=== PATIENT | female | born 1955 | race Caucasian/White ===

== ENCOUNTER 2016-07-09 08:55 | Inpatient (IN) | payer BC ==
[2016-07-09] MEDS ORDERED: SODIUM CHLORIDE 250 ML IV ONE (10:00)
[2016-07-09 10:23] LABS: MCH 33.9 pg (25.7-33.7); MCHC 33.5 g/dl (32.0-36.0); MEAN CELL VOLUME 101.3 fl (80-96); PLATELET COUNT 212 K/MM3 (134-434); RDW 18.3 % (11.6-15.6); WHITE BLOOD COUNT 2.2 K/mm3 (4.0-10.0)
[2016-07-09] MEDS ORDERED: ACETAMINOPHEN 325 MG TABLET (FP) PO ONE (10:30)
[2016-07-09] MEDS ORDERED: DEXAMETHASONE INJECTION 20 MG, DIPHENHYDRAMINE 50 MG in SODIUM CHLORIDE 100 ML IVPB ONE (10:30)
[2016-07-09 10:54] LABS: LDH 160 U/L (84-246); URIC ACID 3.5 mg/dL (2.6-7.2)
[2016-07-09 11:23] VITALS: BMI 21.1
[2016-07-09] MEDS ORDERED: DARATUMUMAB IVPB ONE ×2 (11:30)
[2016-07-09] MEDS ORDERED: SODIUM CHLORIDE IVPB ONE ×2 (11:30)
[2016-07-09 12:26] LABS: ALBUMIN 3.3 g/dl (3.4-5.0); ANION GAP 7 (8-16); CALCIUM 8.9 mg/dL (8.5-10.1); CO2 24 mmol/L (21-32); GLUCOSE,RANDOM 83 mg/dL (74-106)
[2016-07-09 12:29] LABS: CREATININE 0.6 mg/dL (0.55-1.02); SGOT/AST 53 U/L (15-37); SGPT/ALT 23 U/L (12-78); TOT PROT 7.3 g/dl (6.4-8.2)
[2016-07-09 12:34] LABS: ALK PHOS 99 U/L (45-117); BILIRUBIN,TOTAL 0.5 mg/dL (0.2-1.0)
[2016-07-09] MEDS ORDERED: ACETAMINOPHEN 325 MG TABLET (FP) ONE (12:35)
[2016-07-09] MEDS ORDERED: methylPREDNISolone NA SUCC 125 MG/2 ML VIAL ONE (15:52)
[2016-07-09] MEDS ORDERED: methylPREDNISolone NA SUCC 125 MG/2 ML VIAL IVPB ONE ×2 (16:00→16:15)
--- NOTE | 2016-07-09 16:01 | HP ---
Admitting History and Physical - Admission Chief Complaint: Chemotherapy admission with daitumimab and carfilzamab History Source: Patient, Medical Record, Caregiver - Past Medical History Gastrointestinal: Yes: Other (bloating and distension) ...: No Heme/Onc: Yes: Current Chemotherapy Endocrine: Yes: Hypothyroidism - Past Surgical History Additional Past Surgical History: thyroidectomy - Smoking History Smoking history: Never smoked Have you smoked in the past 12 months: No Aproximately how many cigarettes per day: 0 - Alcohol/Substance Use Hx Alcohol Use: Yes (SOCIAL) Home Medications - Allergies Allergies/Adverse Reactions: Allergies Allergy/AdvReac Type Severity Reaction Status Date / Time No Known Allergies Allergy Verified 11/23/14 13:15 - Home Medications Home Medications: Ambulatory Orders Acyclovir [Zovirax -] 400 mg PO ASDIR 12/18/12 Aspirin [ASA -] 81 mg PO DAILY 12/18/12 Levothyroxine [Synthroid -] 125 mcg PO DAILY 12/18/12 Vitamin B Complex 1 each PO DAILY 12/18/12 Dexamethasone Injection [Decadron] 20 mg IJ WEEKLY 11/23/14 Allopurinol 300 mg PO DAILY 01/31/16 Vicoprofen 7.5-200 mg Tablet 1 tab PO PRN PRN 02/01/16 Zometa - 4 mg IV MO 02/01/16 Carvedilol [Coreg] 3.125 mg PO BID 07/09/16 Lisinopril [Zestril] 2.5 mg PO DAILY 07/09/16 Review of Systems - Review of Systems Constitutional: reports: No Symptoms Eyes: denies: Blurred Vision, Double Vision HENT: reports: Nasal Congestion. denies: Difficult Swallowing, Mouth Swelling Neck: denies: Swollen Glands, Tenderness Cardiovascular: denies: Chest Pain, Shortness of Breath Respiratory: denies: SOB, SOB on Exertion Gastrointestinal: reports: Bloating, Diarrhea. denies: Vomiting Blood Genitourinary: denies: Discharge, Dysuria, Flank Pain Breasts: reports: No Symptoms Reported Neurological: reports: No Symptoms, Weakness Hematology/Lymphatic: denies: Easily Bruised, Excessive Bleeding, Swollen Glands Psychiatric: reports: No Symptoms Physical Examination Vital Signs: Vital Signs Temperature 97.7 F 07/09/16 10:52 Pulse Rate 74 07/09/16 10:52 Respiratory Rate 19 07/09/16 10:52 Blood Pressure 135/82 07/09/16 10:52 O2 Sat by Pulse Oximetry (%) 98 07/09/16 10:52 Constitutional: Yes: No Distress Eyes: Yes: PERRL. No: Ptosis, Sclera Icterus HENT: Yes: Atraumatic, Normocephalic. No: Epistaxis, Tonsillar Exudate Neck: Yes: Supple, Trachea Midline. No: Lymphadenopathy, Tenderness, Thyromegaly Cardiovascular: Yes: Regular Rate and Rhythm Respiratory: Yes: CTA Bilaterally Gastrointestinal: Yes: WNL, Soft Renal/: No: CVA Tenderness - Right Breast(s): Yes: WNL Musculoskeletal: No: Back Pain, Muscle Pain Extremities: No: Calf Tenderness Edema: No Integumentary: Yes: WNL, Body Piercing Neurological: Yes: WNL ...Motor Strength: WNL Psychiatric: Yes: WNL Labs: CBC, BMP 07/09/16 09:50 07/09/16 09:50 Problem List - Problems (1) Multiple myeloma Assessment/Plan: For carfilzamab and daratumimab. S/P multiple chemotherapy regimens and s/p transplant. Code(s): C90.00 - MULTIPLE MYELOMA NOT HAVING ACHIEVED REMISSION Qualifiers: Multiple myeloma remission status: not in remission Qualified Code(s ): C90.00 - Multiple myeloma not having achieved remission (2) Neutropenia Assessment/Plan: Secondary to chemotherapy Will need neupogen post infusion of chemotherapy. Code(s): D70.9 - NEUTROPENIA, UNSPECIFIED Qualifiers: Neutropenia type: secondary to cancer chemotherapy Qualified Code(s) : D70.1 - Agranulocytosis secondary to cancer chemotherapy (3) Antineoplastic chemotherapy induced anemia Assessment/Plan: To monitor. Code(s): D64.81 - ANEMIA DUE TO ANTINEOPLASTIC CHEMOTHERAPY
[2016-07-09] MEDS ORDERED: DEXAMETHASONE 4 MG TABLET (FP) PO ONE ×2 (20:45→23:45)
--- NOTE | 2016-07-09 21:45 | PN ---
Progress Note (short form) - Note Progress Note: Developed infusion reaction with increased secretions and pressure in ears and throat. Antibody stopped and saline infused. Methylprednisolone given (60 mg). Rate slowed to 50cc. . After one hour- no reaction, and rate increased to 100cc/hr. No reaction. Clear lungs at 50 cc and at 100 cc / hr. To maintain current rate. Problem List - Problems (1) Multiple myeloma Code(s): C90.00 - MULTIPLE MYELOMA NOT HAVING ACHIEVED REMISSION Qualifiers: Multiple myeloma remission status: not in remission Qualified Code(s ): C90.00 - Multiple myeloma not having achieved remission (2) Neutropenia Code(s): D70.9 - NEUTROPENIA, UNSPECIFIED Qualifiers: Neutropenia type: secondary to cancer chemotherapy Qualified Code(s) : D70.1 - Agranulocytosis secondary to cancer chemotherapy (3) Antineoplastic chemotherapy induced anemia Code(s): D64.81 - ANEMIA DUE TO ANTINEOPLASTIC CHEMOTHERAPY
[2016-07-10] MEDS ORDERED: SODIUM CHLORIDE 250 ML IV ONE ×2 (09:30→10:30)
[2016-07-10 09:34] VITALS: BP 135/86; PULSE 69; TEMP 98.4
[2016-07-10] MEDS ORDERED: WATER IV ONE (10:00)
[2016-07-10] MEDS ORDERED: DEXTROSE 5% IV ONE (10:00)
[2016-07-10] MEDS ORDERED: CARFILZOMIB IV ONE (10:00)
[2016-07-10] MEDS ORDERED: DEXAMETHASONE 4 MG TABLET (FP) PO ONE (12:00)
--- NOTE | 2016-07-10 12:58 | PN ---
Progress Note (short form) - Note Progress Note: PAtient seen and examined Feels puffy, swollen Last Vital Signs Temp Pulse Resp BP Pulse Ox 98.4 F 69 20 135/86 98 07/10/16 09:34 07/10/16 09:34 07/10/16 09:34 07/10/16 09:34 07/10/16 09:00 HEENT: MELANY, EOM Intact Oropharynx: No thrush, No mucositis Cor: RSR, No murmurs, No gallops Lungs: Clear to P&A Abd: Soft, Normal bowel sounds, No organomegaly no c/c/e Labs reviewed A/P 61 y/o patient with myeloma, started daratumumab. continuing carfilzomib/ decadron Had a reaction during daratumumab infusion. Got steroids and rate was slowed -- tolerated well mildly elevated BP--on coreg/lisinopril to take neupogen for 2 days to take decadron this evening and tomorrow to f/u on friday in the office
== END 2016-07-10 13:29 | disposition home or self-care (01) | DRG 847 ==
LOC: J7W 08:55
PROVIDERS: ADMIT Internal Medicine Hematology & Oncology; ATTEND Internal Medicine Hematology & Oncology
DX: Z51.11 Encounter for antineoplastic chemotherapy (principal); C90.00 Multiple myeloma not having achieved remission; D70.8 Other neutropenia; D64.81 Anemia due to antineoplastic chemotherapy; E03.9 Hypothyroidism, unspecified
CPT/HCPCS: 36415; 80053; 83615; 83735; 84550; 85027; 86850; 86900; 86901; 96413; 96415; J9047; J9145

== ENCOUNTER 2016-07-16 10:30 | Inpatient (IN) | payer BC ==
[2016-07-16] MEDS ORDERED: SODIUM CHLORIDE 250 ML IV ONE (13:30)
[2016-07-16] MEDS ORDERED: DEXAMETHASONE INJECTION 20 MG, DIPHENHYDRAMINE 50 MG in SODIUM CHLORIDE 100 ML IVPB ONE (14:00)
[2016-07-16] MEDS ORDERED: ACETAMINOPHEN 325 MG TABLET (FP) PO ONE (14:00)
[2016-07-16 14:29] LABS: BASOPHIL 1.7 % (0-2.0); MCH 34.6 pg (25.7-33.7); MCHC 34.5 g/dl (32.0-36.0); MEAN CELL VOLUME 100.2 fl (80-96); MEAN PLT VOLUME 8.8 fl (7.5-11.1); NEUTROPHILS 70.7 % (42.8-82.8); PLATELET COUNT 164 K/MM3 (134-434); RDW 18.8 % (11.6-15.6); WHITE BLOOD COUNT 3.5 K/mm3 (4.0-10.0)
[2016-07-16 14:59] LABS: ALBUMIN 3.1 g/dl (3.4-5.0); ANION GAP 5 (8-16); CO2 27 mmol/L (21-32); CREATININE 0.7 mg/dL (0.55-1.02); GLUCOSE,RANDOM 103 mg/dL (74-106); MAGNESIUM 2.2 mg/dL (1.8-2.4); SGOT/AST 38 U/L (15-37); SGPT/ALT 39 U/L (12-78)
[2016-07-16] MEDS ORDERED: DARATUMUMAB IVPB ONE (15:00)
[2016-07-16] MEDS ORDERED: SODIUM CHLORIDE IVPB ONE (15:00)
[2016-07-16 15:01] LABS: ALK PHOS 127 U/L (45-117); BILIRUBIN,TOTAL 0.5 mg/dL (0.2-1.0); TOT PROT 6.1 g/dl (6.4-8.2)
[2016-07-16] MEDS ORDERED: ACETAMINOPHEN 325 MG TABLET (FP) ONE (16:44)
--- NOTE | 2016-07-16 17:00 | HP ---
Admitting History and Physical - Admission Chief Complaint: Chemotherapy. Myeloma History of Present Illness: Multiple prior chemotherapy regimens. History Source: Patient, Medical Record (bloating) - Past Medical History Gastrointestinal: Yes: Other Heme/Onc: Yes: Current Chemotherapy Endocrine: Yes: Hypothyroidism - Past Surgical History Additional Past Surgical History: Thyroidectomy for Ca (papillary) - Smoking History Smoking history: Never smoked Have you smoked in the past 12 months: No Aproximately how many cigarettes per day: 0 - Alcohol/Substance Use Hx Alcohol Use: Yes (SOCIAL) Home Medications - Allergies Allergies/Adverse Reactions: Allergies Allergy/AdvReac Type Severity Reaction Status Date / Time No Known Allergies Allergy Verified 11/23/14 13:15 - Home Medications Home Medications: Ambulatory Orders Acyclovir [Zovirax -] 400 mg PO ASDIR 12/18/12 Aspirin [ASA -] 81 mg PO DAILY 12/18/12 Levothyroxine [Synthroid -] 125 mcg PO DAILY 12/18/12 Vitamin B Complex 1 each PO DAILY 12/18/12 Dexamethasone Injection [Decadron] 20 mg IJ WEEKLY 11/23/14 Allopurinol 300 mg PO DAILY 01/31/16 Vicoprofen 7.5-200 mg Tablet 1 tab PO PRN PRN 02/01/16 Zometa - 4 mg IV MO 02/01/16 Carvedilol [Coreg] 3.125 mg PO BID 07/09/16 Lisinopril [Zestril] 2.5 mg PO DAILY 07/09/16 Home Medications (free text): Patient may take own meds Physical Examination Constitutional: Yes: No Distress Eyes: Yes: Occular Prosthesis, PERRL. No: Diplopia, Ptosis, Sclera Icterus HENT: Yes: Normocephalic. No: Thrush Neck: Yes: Supple, Trachea Midline. No: Decreased ROM, Lymphadenopathy Cardiovascular: Yes: Regular Rate and Rhythm Respiratory: Yes: Rales Gastrointestinal: Yes: Soft, Distention. No: Hepatomegaly, Tenderness, Tenderness, Epigastrium Breast(s): Yes: WNL, Left, Right Musculoskeletal: No: Back Pain Extremities: Yes: WNL Edema: No Integumentary: Yes: WNL, Other Neurological: Yes: WNL ...Motor Strength: WNL Labs: CBC, BMP 07/16/16 14:00 07/16/16 14:00 Problem List - Problems (1) Multiple myeloma Assessment/Plan: Continue with daratumimab;Continue with carfilzamib Code(s): C90.00 - MULTIPLE MYELOMA NOT HAVING ACHIEVED REMISSION Qualifiers: Multiple myeloma remission status: not in remission Qualified Code(s ): C90.00 - Multiple myeloma not having achieved remission
[2016-07-16 20:43] VITALS: BMI 20.7
[2016-07-17] MEDS ORDERED: SODIUM CHLORIDE 250 ML IV ONE ×3 (01:30→09:30)
[2016-07-17 06:13] VITALS: BP 117/64; PULSE 85; TEMP 97.9
[2016-07-17] MEDS ORDERED: CARFILZOMIB IV ONE (09:15)
[2016-07-17] MEDS ORDERED: WATER IV ONE (09:15)
[2016-07-17] MEDS ORDERED: DEXTROSE 5% IV ONE (09:15)
== END 2016-07-17 11:09 | disposition home or self-care (01) | DRG 847 ==
LOC: J7W 10:30
PROVIDERS: ADMIT Internal Medicine Hematology & Oncology; ATTEND Internal Medicine Hematology & Oncology
DX: Z51.11 Encounter for antineoplastic chemotherapy (principal); C90.00 Multiple myeloma not having achieved remission; E03.9 Hypothyroidism, unspecified
CPT/HCPCS: 36415; 80053; 83735; 84134; 85025; J8540; J9047; J9145

== ENCOUNTER 2016-07-23 12:18 | Inpatient (IN) | payer BC ==
[2016-07-23 12:54] LABS: BASOPHIL 0.8 % (0-2.0); EOSINOPHIL 2.9 % (0-4.5); MCH 34.6 pg (25.7-33.7); MCHC 33.9 g/dl (32.0-36.0); MEAN CELL VOLUME 102.1 fl (80-96); MEAN PLT VOLUME 8.8 fl (7.5-11.1); NEUTROPHILS 83.6 % (42.8-82.8); PLATELET COUNT 169 K/MM3 (134-434); RDW 20.9 % (11.6-15.6)
[2016-07-23 13:28] LABS: ANION GAP 8 (8-16); BILIRUBIN,TOTAL 0.6 mg/dL (0.2-1.0); CALCIUM 7.6 mg/dL (8.5-10.1); CO2 27 mmol/L (21-32); CREATININE 0.7 mg/dL (0.55-1.02); GLUCOSE,RANDOM 91 mg/dL (74-106); SGOT/AST 24 U/L (15-37); SGPT/ALT 22 U/L (12-78); TOT PROT 5.9 g/dl (6.4-8.2)
[2016-07-23 13:29] LABS: ALK PHOS 137 U/L (45-117)
[2016-07-23] MEDS ORDERED: SODIUM CHLORIDE 250 ML IV ONE ×4 (14:00→21:00)
[2016-07-23] MEDS ORDERED: DEXAMETHASONE INJECTION 20 MG, DIPHENHYDRAMINE 50 MG in SODIUM CHLORIDE 100 ML IVPB ONE (14:30)
[2016-07-23] MEDS ORDERED: ACETAMINOPHEN 325 MG TABLET (FP) PO ONE (14:30)
[2016-07-23] MEDS ORDERED: SODIUM CHLORIDE IVPB ONE (15:30)
[2016-07-23] MEDS ORDERED: DARATUMUMAB IVPB ONE (15:30)
--- NOTE | 2016-07-23 16:01 | HP ---
Admitting History and Physical - Admission Chief Complaint: Admitted for chemotherapy. Has had prior infusion reaction with daralyx. Have increased concentration. Day2 - carfilzamab. History Source: Patient Limitations to Obtaining History: No Limitations - Past Medical History Cardiovascular: Yes: Other (decreased ejection fraction) Pulmonary: Yes: Other (recent bronchitis) Gastrointestinal: Yes: Other (abdominal bloating) Heme/Onc: Yes: Current Chemotherapy Endocrine: Yes: Hypothyroidism - Past Surgical History Additional Past Surgical History: total thyroidectomy - Smoking History Smoking history: Never smoked Have you smoked in the past 12 months: No Aproximately how many cigarettes per day: 0 - Alcohol/Substance Use Hx Alcohol Use: Yes (SOCIAL) - Social History Usual Living Arrangement: Yes: With Child ADL: Independent History of Recent Travel: No Home Medications - Allergies Allergies/Adverse Reactions: Allergies Allergy/AdvReac Type Severity Reaction Status Date / Time No Known Allergies Allergy Verified 11/23/14 13:15 - Home Medications Home Medications: Ambulatory Orders Acyclovir [Zovirax -] 400 mg PO ASDIR 12/18/12 Aspirin [ASA -] 81 mg PO DAILY 12/18/12 Levothyroxine [Synthroid -] 125 mcg PO DAILY 12/18/12 Vitamin B Complex 1 each PO DAILY 12/18/12 Dexamethasone Injection [Decadron] 20 mg IJ WEEKLY 11/23/14 Allopurinol 300 mg PO DAILY 01/31/16 Vicoprofen 7.5-200 mg Tablet 1 tab PO PRN PRN 02/01/16 Zometa - 4 mg IV MO 02/01/16 Carvedilol [Coreg] 3.125 mg PO BID 07/09/16 Lisinopril [Zestril] 2.5 mg PO DAILY 07/09/16 Review of Systems - Review of Systems Constitutional: denies: Diaphoresis, Fever, Lethargy, Loss of Appetite, Night Sweats, Unintentional Wgt. Loss Eyes: denies: Blurred Vision, Double Vision HENT: denies: Difficult Swallowing, Throat Pain Neck: denies: Stiffness, Swollen Glands, Tenderness Cardiovascular: denies: Chest Pain, Shortness of Breath Respiratory: reports: Cough Gastrointestinal: reports: Bloating. denies: No Symptoms, Constipation, Diarrhea, Indigestion, Melena Genitourinary: denies: Burning, Dysuria, Flank Pain Breasts: denies: No Symptoms Reported Musculoskeletal: denies: Back Pain, Crepitus, Decreased ROM, Extremity Pain, Joint Pain, Joint Swelling, Muscle Weakness Integumentary: denies: Bruising, Erythema, Lesions Neurological: reports: No Symptoms Endocrine: reports: No Symptoms. denies: Other Hematology/Lymphatic: denies: Excessive Bleeding Psychiatric: reports: No Symptoms Physical Examination Constitutional: Yes: No Distress Eyes: Yes: PERRL. No: Diplopia, Ptosis, Sclera Icterus HENT: Yes: Atraumatic, Normocephalic. No: Epistaxis, Hoarseness, Rhinnorhea, Thrush, Tonsillar Exudate Neck: Yes: WNL. No: Lymphadenopathy, Tenderness, Thyromegaly Cardiovascular: Yes: Regular Rate and Rhythm Respiratory: Yes: Regular, CTA Bilaterally Gastrointestinal: Yes: Normal Bowel Sounds. No: Ascites, Hepatomegaly, Melena, Splenomegaly, Tenderness Renal/: No: CVA Tenderness - Right Breast(s): Yes: WNL, Left, Right Musculoskeletal: No: Back Pain, Joint Swelling, Muscle Pain Extremities: No: Calf Tenderness, Cold Edema: No Integumentary: No: Bruising Wound/Incision: No: Well Approximated Neurological: Yes: Paresthesia. No: Unresponsive ...Motor Strength: WNL Psychiatric: Yes: WNL Labs: CBC, BMP 07/23/16 12:28 07/23/16 12:28 Problem List - Problems (1) Multiple myeloma Assessment/Plan: Multiple prior treatments. Currentlly on darylx and carfilzam To continue. Code(s): C90.00 - MULTIPLE MYELOMA NOT HAVING ACHIEVED REMISSION Qualifiers: Multiple myeloma remission status: not in remission Qualified Code(s ): C90.00 - Multiple myeloma not having achieved remission
[2016-07-23 20:03] VITALS: BMI 20.9
[2016-07-23] MEDS ORDERED: CARFILZOMIB IV ONE (20:30)
[2016-07-23] MEDS ORDERED: WATER IV ONE (20:30)
[2016-07-23] MEDS ORDERED: DEXTROSE 5% IV ONE (20:30)
[2016-07-24 01:30] VITALS: BP 125/60; PULSE 88; TEMP 98
== END 2016-07-24 06:00 | disposition home or self-care (01) | DRG 847 ==
LOC: J7W 12:18
PROVIDERS: ADMIT Internal Medicine Hematology & Oncology; ATTEND Internal Medicine Hematology & Oncology
DX: Z51.11 Encounter for antineoplastic chemotherapy (principal); C90.00 Multiple myeloma not having achieved remission
CPT/HCPCS: 36415; 80053; 83735; 85025; 96413; 96415; 96417; J9145

== ENCOUNTER 2016-07-30 12:15 | Day surgery (SDC) | payer BC ==
[2016-07-30 13:05] LABS: MCH 34.7 pg (25.7-33.7); MCHC 33.1 g/dl (32.0-36.0); MEAN CELL VOLUME 104.9 fl (80-96); MEAN PLT VOLUME 8.1 fl (7.5-11.1); RDW 22.1 % (11.6-15.6); WHITE BLOOD COUNT 4.9 K/mm3 (4.0-10.0)
[2016-07-30 13:32] LABS: ALBUMIN 3.5 g/dl (3.4-5.0); ANION GAP 12 (8-16); BILIRUBIN,TOTAL 0.6 mg/dL (0.2-1.0); CALCIUM 8.6 mg/dL (8.5-10.1); CO2 22 mmol/L (21-32); CREATININE 0.6 mg/dL (0.55-1.02); GLUCOSE,RANDOM 90 mg/dL (74-106); SGPT/ALT 21 U/L (12-78); TOT PROT 6.8 g/dl (6.4-8.2)
[2016-07-30 13:33] LABS: ALK PHOS 136 U/L (45-117); SGOT/AST 39 U/L (15-37)
[2016-07-30 13:45] LABS: MAGNESIUM 2.2 mg/dL (1.8-2.4)
[2016-07-30 13:59] LABS: PLATELET COUNT 144 K/MM3 (134-434)
[2016-07-30 14:00] LABS: PLATELET ESTIMATE ADEQUATE (NORMAL)
[2016-07-30] MEDS ORDERED: ACETAMINOPHEN 325 MG TABLET (FP) PO ONE (14:00)
[2016-07-30] MEDS ORDERED: ZOLEDRONIC ACID 4 MG in SODIUM CHLORIDE 100 ML IVPB ONE (14:00)
[2016-07-30] MEDS ORDERED: SODIUM CHLORIDE 250 ML IV ONE ×2 (14:00→20:00)
[2016-07-30 14:01] LABS: SCHISTOCYTES FEW; TARGET CELLS 1+
[2016-07-30 14:05] LABS: ANISOCYTOSIS 2+
[2016-07-30] MEDS ORDERED: DEXAMETHASONE INJECTION 20 MG, DIPHENHYDRAMINE 25 MG in SODIUM CHLORIDE 100 ML IVPB ONE (14:30)
[2016-07-30] MEDS ORDERED: SODIUM CHLORIDE IVPB ONE (15:00)
[2016-07-30] MEDS ORDERED: DARATUMUMAB IVPB ONE (15:00)
--- NOTE | 2016-07-30 17:03 | HP ---
Admitting History and Physical - Admission Chief Complaint: Chemotherapy. Myeloma progression on multiple prior regimens and s/p transplant for darilumimab antibody. 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 Heme/Onc: Yes: Current Chemotherapy Endocrine: Yes: Hypothyroidism - Past Surgical History Additional Past Surgical History: thyroidectomy for thyroid ca - Smoking History Smoking history: Never smoked Have you smoked in the past 12 months: No Aproximately how many cigarettes per day: 0 - Alcohol/Substance Use Hx Alcohol Use: Yes (SOCIAL) - Social History Usual Living Arrangement: Yes: Alone ADL: Independent History of Recent Travel: No Home Medications - Allergies Allergies/Adverse Reactions: Allergies Allergy/AdvReac Type Severity Reaction Status Date / Time No Known Allergies Allergy Verified 11/23/14 13:15 - Home Medications Home Medications: Ambulatory Orders Acyclovir [Zovirax -] 400 mg PO ASDIR 12/18/12 Aspirin [ASA -] 81 mg PO DAILY 12/18/12 Levothyroxine [Synthroid -] 125 mcg PO DAILY 12/18/12 Vitamin B Complex 1 each PO DAILY 12/18/12 Dexamethasone Injection [Decadron] 20 mg IJ WEEKLY 11/23/14 Allopurinol 300 mg PO DAILY 01/31/16 Vicoprofen 7.5-200 mg Tablet 1 tab PO PRN PRN 02/01/16 Zometa - 4 mg IV MO 02/01/16 Carvedilol [Coreg] 3.125 mg PO BID 07/09/16 Lisinopril [Zestril] 2.5 mg PO DAILY 07/09/16 Review of Systems - Review of Systems Constitutional: denies: Chills, Diaphoresis, Fever, Loss of Appetite, Night Sweats, Unintentional Wgt. Loss, Weakness Eyes: denies: Blind Spots, Blurred Vision, Double Vision HENT: denies: Difficult Swallowing, Epistaxis, Hearing Loss Neck: denies: Stiffness, Swollen Glands, Tenderness Cardiovascular: denies: Chest Pain, Shortness of Breath Respiratory: denies: Cough, Hemoptysis, Orthopnea Gastrointestinal: reports: Bloating, Diarrhea. denies: Abdominal Pain, Melena, Nausea, Vomiting, Vomiting Blood Genitourinary: denies: Burning, Dysuria, Flank Pain, Frequency, Hematuria, Incontinence Breasts: reports: No Symptoms Reported Musculoskeletal: reports: Back Pain, Muscle Pain Integumentary: denies: Blister, Bruising, Erythema Neurological: reports: Parasthesia Endocrine: reports: No Symptoms Hematology/Lymphatic: reports: No Symptoms Psychiatric: reports: No Symptoms Physical Examination Constitutional: Yes: No Distress Eyes: Yes: EOM Intact, PERRL. No: Diplopia, Ptosis, Sclera Icterus HENT: No: Epistaxis, Hoarseness, Tonsillar Exudate Neck: Yes: Trachea Midline. No: Supple, Lymphadenopathy, Thyromegaly Cardiovascular: Yes: Regular Rate and Rhythm Respiratory: Yes: CTA Bilaterally Gastrointestinal: Yes: Normal Bowel Sounds, Soft. No: Ascites, Splenomegaly, Tenderness, Tenderness, Rebound Renal/: No: CVA Tenderness - Left, CVA Tenderness - Right Breast(s): Yes: WNL, Left, Right Musculoskeletal: Yes: Back Pain, Muscle Pain Edema: No Neurological: Yes: WNL ...Motor Strength: WNL Psychiatric: Yes: WNL Labs: CBC, BMP 07/30/16 12:50 07/30/16 12:50 Problem List - Problems (1) Multiple myeloma Assessment/Plan: Not in remission On daritumimab and carfilzamab and decadron. S/P multiple treatment modalities. S/P transplant. Previously with infusion reaction and in patient treatment for monitoring for posssible infusion reaction. Code(s): C90.00 - MULTIPLE MYELOMA NOT HAVING ACHIEVED REMISSION Qualifiers: Multiple myeloma remission status: not in remission Qualified Code(s ): C90.00 - Multiple myeloma not having achieved remission
[2016-07-30 18:51] VITALS: BMI 20.7
[2016-07-30 21:12] VITALS: BP 147/79; PULSE 80; TEMP 97.8
== END 2016-07-30 21:41 | disposition home or self-care (01) ==
LOC: JCHEMO 12:15 → J7W 12:19 → JCHEMO 21:41
PROVIDERS: ATTEND Internal Medicine Hematology & Oncology
DX: Z51.11 Encounter for antineoplastic chemotherapy (principal); C90.00 Multiple myeloma not having achieved remission; Z85.850 Personal history of malignant neoplasm of thyroid; E03.9 Hypothyroidism, unspecified
CPT/HCPCS: 36415; 80053; 83735; 85027; 96413; 96415; J3489; J8540; J9145

== ENCOUNTER 2016-08-14 06:50 | Day surgery (SDC) | payer BC ==
[2016-08-14] MEDS ORDERED: FAMOTIDINE 20 MG/50 ML IVPB 50 ML IVPB ONE (08:00)
[2016-08-14] MEDS ORDERED: DIPHENHYDRAMINE IVPB ONE (08:00)
[2016-08-14] MEDS ORDERED: SODIUM CHLORIDE IVPB ONE ×2 (08:00→09:00)
[2016-08-14] MEDS ORDERED: DEXAMETHASONE IVPB ONE (08:00)
[2016-08-14] MEDS ORDERED: SODIUM CHLORIDE 250 ML IV ONE ×2 (08:00→10:10)
[2016-08-14] MEDS ORDERED: DARATUMUMAB IVPB ONE (09:00)
[2016-08-14 10:33] LABS: BASOPHIL 1.1 % (0-2.0); MCH 35.5 pg (25.7-33.7); MCHC 34.1 g/dl (32.0-36.0); MEAN CELL VOLUME 104.2 fl (80-96); NEUTROPHILS 86.5 % (42.8-82.8); PLATELET COUNT 185 K/MM3 (134-434); RDW 20.1 % (11.6-15.6); WHITE BLOOD COUNT 5.7 K/mm3 (4.0-10.0)
[2016-08-14] MEDS ORDERED: WATER IV ONE (14:30)
[2016-08-14] MEDS ORDERED: DEXTROSE 5% IV ONE (14:30)
[2016-08-14] MEDS ORDERED: CARFILZOMIB IV ONE (14:30)
[2016-08-14] MEDS ORDERED: ACETAMINOPHEN 325 MG TABLET (FP) ONE (14:38)
[2016-08-14 18:24] VITALS: BP 128/70; PULSE 76; TEMP 98.1; BMI 20.7
== END 2016-08-14 19:02 | disposition home or self-care (01) ==
LOC: JONCCHEMO 06:50 → J7W 11:23 → JONCCHEMO 19:02
PROVIDERS: ATTEND Internal Medicine Hematology & Oncology
DX: Z51.11 Encounter for antineoplastic chemotherapy (principal); C90.00 Multiple myeloma not having achieved remission
CPT/HCPCS: 36415; 85025; 96361; 96367; 96411; 96413; 96415; J9047; J9145

== ENCOUNTER 2016-08-22 07:03 | Day surgery (SDC) | payer BC ==
[2016-08-22] MEDS ORDERED: SODIUM CHLORIDE IVPB ONE ×3 (08:00→09:00)
[2016-08-22] MEDS ORDERED: DEXAMETHASONE IVPB ONE ×2 (08:00)
[2016-08-22] MEDS ORDERED: FAMOTIDINE 20 MG/50 ML IVPB 50 ML IVPB ONE (08:00)
[2016-08-22] MEDS ORDERED: DIPHENHYDRAMINE IVPB ONE ×2 (08:00)
[2016-08-22] MEDS ORDERED: SODIUM CHLORIDE 250 ML IV ONE ×2 (08:00→14:40)
[2016-08-22 08:30] LABS: BASOPHIL 1.2 % (0-2.0); MCH 35.7 pg (25.7-33.7); MCHC 34.7 g/dl (32.0-36.0); MEAN CELL VOLUME 102.7 fl (80-96); MEAN PLT VOLUME 8.9 fl (7.5-11.1); NEUTROPHILS 73.9 % (42.8-82.8); PLATELET COUNT 194 K/MM3 (134-434); WHITE BLOOD COUNT 4.8 K/mm3 (4.0-10.0)
[2016-08-22] MEDS ORDERED: DARATUMUMAB IVPB ONE (09:00)
[2016-08-22] MEDS ORDERED: DEXTROSE 5% IV ONE (14:30)
[2016-08-22] MEDS ORDERED: WATER IV ONE (14:30)
[2016-08-22] MEDS ORDERED: CARFILZOMIB IV ONE (14:30)
[2016-08-22 18:23] VITALS: BMI 20.7
[2016-08-22 18:57] VITALS: TEMP 97.6
[2016-08-22 18:58] VITALS: BP 130/80; PULSE 83
== END 2016-08-22 21:25 | disposition home or self-care (01) ==
LOC: JONCCHEMO 07:03 → J7W 14:53 → JONCCHEMO 21:25
PROVIDERS: ATTEND Internal Medicine Hematology & Oncology
DX: Z51.11 Encounter for antineoplastic chemotherapy (principal); C90.00 Multiple myeloma not having achieved remission
CPT/HCPCS: 96361; 96411; 96413; 96415; J9047; J9145; 36415; 85025; 96367

== ENCOUNTER 2016-08-28 06:54 | Day surgery (SDC) | payer BC ==
[2016-08-28] MEDS ORDERED: DIPHENHYDRAMINE IVPB ONE (08:00)
[2016-08-28] MEDS ORDERED: DEXAMETHASONE IVPB ONE (08:00)
[2016-08-28] MEDS ORDERED: SODIUM CHLORIDE 250 ML IV ONE ×2 (08:00→14:10)
[2016-08-28] MEDS ORDERED: SODIUM CHLORIDE IVPB ONE ×2 (08:00→08:30)
[2016-08-28] MEDS ORDERED: FAMOTIDINE 20 MG/50 ML IVPB 50 ML IVPB ONE (08:00)
[2016-08-28] MEDS ORDERED: DARATUMUMAB IVPB ONE (08:30)
[2016-08-28 13:18] LABS: BASOPHIL 1.1 % (0-2.0); EOSINOPHIL 2.4 % (0-4.5); MCHC 33.3 g/dl (32.0-36.0); MEAN CELL VOLUME 105.2 fl (80-96); MEAN PLT VOLUME 8.3 fl (7.5-11.1); NEUTROPHILS 83.2 % (42.8-82.8); PLATELET COUNT 178 K/MM3 (134-434); RDW 19.2 % (11.6-15.6); WHITE BLOOD COUNT 6.8 K/mm3 (4.0-10.0)
[2016-08-28 13:24] LABS: ANISOCYTOSIS 1+; HYPOCHROMIA 1+
[2016-08-28] MEDS ORDERED: WATER IV ONE (14:00)
[2016-08-28] MEDS ORDERED: DEXTROSE 5% IV ONE (14:00)
[2016-08-28] MEDS ORDERED: CARFILZOMIB IV ONE (14:00)
[2016-08-28 18:10] VITALS: BP 139/78; PULSE 87
[2016-08-28 18:29] VITALS: TEMP 97.8
== END 2016-08-28 18:35 | disposition home or self-care (01) ==
LOC: JONCCHEMO 06:54 → J7W 12:55 → JONCCHEMO 18:35
PROVIDERS: ATTEND Internal Medicine Hematology & Oncology
DX: Z51.11 Encounter for antineoplastic chemotherapy (principal); C90.00 Multiple myeloma not having achieved remission
CPT/HCPCS: 36415; 85025; 96375; 96413; 96415; 96417; J9047; J9145

== ENCOUNTER 2016-09-04 06:58 | Day surgery (SDC) | payer BC ==
[2016-09-04] MEDS ORDERED: SODIUM CHLORIDE 250 ML IV ONE ×2 (08:00→14:00)
[2016-09-04] MEDS ORDERED: SODIUM CHLORIDE IVPB ONE ×2 (08:00→08:30)
[2016-09-04] MEDS ORDERED: DIPHENHYDRAMINE IVPB ONE (08:00)
[2016-09-04] MEDS ORDERED: DEXAMETHASONE IVPB ONE (08:00)
[2016-09-04] MEDS ORDERED: FAMOTIDINE 20 MG/50 ML IVPB 50 ML IVPB ONE (08:00)
[2016-09-04] MEDS ORDERED: DARATUMUMAB IVPB ONE (08:30)
[2016-09-04 08:47] LABS: BASOPHIL 1.1 % (0-2.0); EOSINOPHIL 2.5 % (0-4.5); MCH 35.3 pg (25.7-33.7); MCHC 33.3 g/dl (32.0-36.0); MEAN CELL VOLUME 106.1 fl (80-96); MEAN PLT VOLUME 8.4 fl (7.5-11.1); NEUTROPHILS 79.4 % (42.8-82.8); PLATELET COUNT 187 K/MM3 (134-434); RDW 19.2 % (11.6-15.6); WHITE BLOOD COUNT 5.6 K/mm3 (4.0-10.0)
[2016-09-04] MEDS ORDERED: ZOLEDRONIC ACID 4 MG in SODIUM CHLORIDE 100 ML IVPB ONE (16:00)
[2016-09-04 17:01] VITALS: BP 123/64; PULSE 86; TEMP 97.9
== END 2016-09-04 21:47 | disposition home or self-care (01) ==
LOC: JONCCHEMO 06:58 → J7W 16:30 → JONCCHEMO 21:47
PROVIDERS: ATTEND Internal Medicine Hematology & Oncology
DX: Z51.11 Encounter for antineoplastic chemotherapy (principal); C90.00 Multiple myeloma not having achieved remission
CPT/HCPCS: 36415; 85025; 96361; 96365; 96367; 96413; 96415; J3489; J9145

== ENCOUNTER 2016-09-12 07:02 | Day surgery (SDC) | payer BC ==
[2016-09-12] MEDS ORDERED: SODIUM CHLORIDE IVPB ONE ×2 (08:00→08:30)
[2016-09-12] MEDS ORDERED: SODIUM CHLORIDE 250 ML IV ONE ×2 (08:00→11:25)
[2016-09-12] MEDS ORDERED: DIPHENHYDRAMINE IVPB ONE (08:00)
[2016-09-12] MEDS ORDERED: DEXAMETHASONE IVPB ONE (08:00)
[2016-09-12] MEDS ORDERED: FAMOTIDINE 20 MG/50 ML IVPB 50 ML IVPB ONE (08:00)
[2016-09-12] MEDS ORDERED: DARATUMUMAB IVPB ONE (08:30)
[2016-09-12 09:32] LABS: BASOPHIL 1.4 % (0-2.0); EOSINOPHIL 2.5 % (0-4.5); MCH 35.4 pg (25.7-33.7); MCHC 33.5 g/dl (32.0-36.0); MEAN CELL VOLUME 105.7 fl (80-96); MEAN PLT VOLUME 7.7 fl (7.5-11.1); NEUTROPHILS 77.5 % (42.8-82.8); PLATELET COUNT 192 K/MM3 (134-434); RDW 19.1 % (11.6-15.6); WHITE BLOOD COUNT 4.7 K/mm3 (4.0-10.0)
[2016-09-12] MEDS ORDERED: CARFILZOMIB IV ONE (11:15)
[2016-09-12] MEDS ORDERED: WATER IV ONE (11:15)
[2016-09-12] MEDS ORDERED: DEXTROSE 5% IV ONE (11:15)
[2016-09-12 16:03] VITALS: BP 129/73; PULSE 82; TEMP 98.1
== END 2016-09-12 19:00 | disposition home or self-care (01) ==
LOC: JONCCHEMO 07:02 → J7W 13:51 → JONCCHEMO 19:00
PROVIDERS: ATTEND Internal Medicine Hematology & Oncology
DX: Z51.11 Encounter for antineoplastic chemotherapy (principal); C90.00 Multiple myeloma not having achieved remission
CPT/HCPCS: 36415; 85025; 96413; 96415; 96417; J9047; J9145

== ENCOUNTER 2016-09-18 07:00 | Day surgery (SDC) | payer BC ==
[2016-09-18] MEDS ORDERED: DEXAMETHASONE INJECTION 12 MG in SODIUM CHLORIDE 50 ML IVPB ONE (08:00)
[2016-09-18] MEDS ORDERED: DEXAMETHASONE INJECTION 10 MG in SODIUM CHLORIDE 50 ML IVPB ONE (08:00)
[2016-09-18] MEDS ORDERED: SODIUM CHLORIDE 250 ML IV ONE ×2 (08:00→08:40)
[2016-09-18] MEDS ORDERED: WATER IV ONE (08:30)
[2016-09-18] MEDS ORDERED: DEXTROSE 5% IV ONE (08:30)
[2016-09-18] MEDS ORDERED: CARFILZOMIB IV ONE (08:30)
[2016-09-18 09:01] LABS: MEAN CELL VOLUME 105.4 fl (80-96); WHITE BLOOD COUNT 4.4 K/mm3 (4.0-10.0)
[2016-09-18 09:02] LABS: MCH 35.6 pg (25.7-33.7); MCHC 33.8 g/dl (32.0-36.0); MEAN PLT VOLUME 8.6 fl (7.5-11.1); RDW 18.2 % (11.6-15.6)
[2016-09-18 12:20] LABS: PLATELET COUNT 188 K/MM3 (134-434); PLATELET ESTIMATE a (NORMAL); POLYCHROMASIA OCC
[2016-09-18 12:21] LABS: ANISOCYTOSIS 1+; TARGET CELLS OCC
[2016-09-18 17:29] VITALS: BP 136/73; PULSE 85; TEMP 98.1
== END 2016-09-18 17:33 | disposition home or self-care (01) ==
LOC: JONCCHEMO 07:00 → J7W 16:00 → JONCCHEMO 17:33
PROVIDERS: ATTEND Internal Medicine Hematology & Oncology
PROC: 3E03305 Introduction of Other Antineoplastic into Peripheral Vein, Percutaneous Approach (ICD-10-PCS; principal; 2016-09-18)
PROC: 3E033GC Introduction of Other Therapeutic Substance into Peripheral Vein, Percutaneous Approach (ICD-10-PCS; 2016-09-18)
PROC: 3E0337Z Introduction of Electrolytic and Water Balance Substance into Peripheral Vein, Percutaneous Approach (ICD-10-PCS; 2016-09-18)
DX: Z51.11 Encounter for antineoplastic chemotherapy (principal); C90.00 Multiple myeloma not having achieved remission
CPT/HCPCS: 36415; 85025; 96360; 96367; 96375; 96409; 96413; J9047

== ENCOUNTER 2016-09-25 07:01 | Day surgery (SDC) | payer BC ==
[2016-09-25] MEDS ORDERED: SODIUM CHLORIDE 250 ML IV ONE ×2 (08:00→11:30)
[2016-09-25] MEDS ORDERED: SODIUM CHLORIDE IVPB ONE ×2 (08:00→08:30)
[2016-09-25] MEDS ORDERED: FAMOTIDINE 20 MG/50 ML IVPB 50 ML IVPB ONE (08:00)
[2016-09-25] MEDS ORDERED: DEXAMETHASONE IVPB ONE (08:00)
[2016-09-25] MEDS ORDERED: DIPHENHYDRAMINE IVPB ONE (08:00)
[2016-09-25] MEDS ORDERED: CARFILZOMIB IV ONE (08:30)
[2016-09-25] MEDS ORDERED: WATER IV ONE (08:30)
[2016-09-25] MEDS ORDERED: DEXTROSE 5% IV ONE (08:30)
[2016-09-25] MEDS ORDERED: DARATUMUMAB IVPB ONE (08:30)
[2016-09-25 13:47] LABS: MCH 36.2 pg (25.7-33.7); MCHC 34.1 g/dl (32.0-36.0); MEAN CELL VOLUME 106.1 fl (80-96); PLATELET COUNT 199 K/MM3 (134-434); WHITE BLOOD COUNT 5.6 K/mm3 (4.0-10.0)
[2016-09-25 13:48] LABS: EOSINOPHIL 0.7 % (0-4.5); MEAN PLT VOLUME 8.7 fl (7.5-11.1); NEUTROPHILS 80.4 % (42.8-82.8)
[2016-09-25 20:12] VITALS: BP 149/91; PULSE 99; TEMP 98.2
== END 2016-09-25 20:19 | disposition home or self-care (01) ==
LOC: JONCCHEMO 07:01 → J7W 12:39 → JONCCHEMO 20:19
PROVIDERS: ATTEND Internal Medicine Hematology & Oncology
DX: Z51.11 Encounter for antineoplastic chemotherapy (principal); C90.00 Multiple myeloma not having achieved remission
CPT/HCPCS: 36415; 85025; 96360; 96367; 96413; 96415; 96417; J9047; J9145

== ENCOUNTER 2016-10-10 07:09 | Day surgery (SDC) | payer BC ==
[2016-10-10] MEDS ORDERED: FAMOTIDINE 20 MG/50 ML IVPB 50 ML IVPB ONE (08:00)
[2016-10-10] MEDS ORDERED: SODIUM CHLORIDE IVPB ONE ×3 (08:00→08:40)
[2016-10-10] MEDS ORDERED: ZOLEDRONIC ACID 4 MG in SODIUM CHLORIDE 100 ML IVPB ONE (08:00)
[2016-10-10] MEDS ORDERED: DEXAMETHASONE INJECTION 12 MG in SODIUM CHLORIDE 50 ML IVPB ONE (08:00)
[2016-10-10] MEDS ORDERED: DIPHENHYDRAMINE IVPB ONE ×2 (08:00)
[2016-10-10] MEDS ORDERED: FAMOTIDINE IVPB ONE (08:00)
[2016-10-10] MEDS ORDERED: SODIUM CHLORIDE 250 ML IV ONE (08:00)
[2016-10-10] MEDS ORDERED: DEXTROSE 5% IV ONE (08:30)
[2016-10-10] MEDS ORDERED: CARFILZOMIB IV ONE (08:30)
[2016-10-10] MEDS ORDERED: WATER IV ONE (08:30)
[2016-10-10] MEDS ORDERED: DARATUMUMAB IVPB ONE (08:40)
[2016-10-10 12:02] LABS: BASOPHIL 0.5 % (0-2.0); EOSINOPHIL 0.7 % (0-4.5); MCH 35.8 pg (25.7-33.7); MCHC 33.7 g/dl (32.0-36.0); MEAN CELL VOLUME 106.3 fl (80-96); MEAN PLT VOLUME 7.7 fl (7.5-11.1); NEUTROPHILS 84.8 % (42.8-82.8); PLATELET COUNT 210 K/MM3 (134-434); RDW 17.2 % (11.6-15.6); WHITE BLOOD COUNT 8.8 K/mm3 (4.0-10.0)
[2016-10-10] MEDS ORDERED: FENTANYL PATCH WASTE TD PRN (17:01)
[2016-10-10] MEDS ORDERED: fentaNYL 12mcg/hr PATCH.TD72 TD SCH (17:01)
[2016-10-10 21:02] VITALS: BP 146/71; PULSE 78; TEMP 99.2
== END 2016-10-10 21:09 | disposition home or self-care (01) ==
LOC: JONCCHEMO 07:09 → J7W 15:45 → JONCCHEMO 21:09
PROVIDERS: ATTEND Internal Medicine Hematology & Oncology
PROC: 3E03305 Introduction of Other Antineoplastic into Peripheral Vein, Percutaneous Approach (ICD-10-PCS; principal; 2016-10-10)
PROC: 3E033GC Introduction of Other Therapeutic Substance into Peripheral Vein, Percutaneous Approach (ICD-10-PCS; 2016-10-10)
PROC: 3E0337Z Introduction of Electrolytic and Water Balance Substance into Peripheral Vein, Percutaneous Approach (ICD-10-PCS; 2016-10-10)
DX: Z51.11 Encounter for antineoplastic chemotherapy (principal); C90.00 Multiple myeloma not having achieved remission
CPT/HCPCS: 96361; 96375; 96411; 96413; 96415; J1100; J1200; J7030; J9047; J9145; S0028; 36415; 85025; 96360; 96367; 96417

== ENCOUNTER 2016-10-17 07:05 | Day surgery (SDC) | payer BC ==
[2016-10-17] MEDS ORDERED: SODIUM CHLORIDE 250 ML IV ONE (08:00)
[2016-10-17] MEDS ORDERED: DEXAMETHASONE INJECTION 8 MG in SODIUM CHLORIDE 50 ML IVPB ONE (08:00)
[2016-10-17] MEDS ORDERED: ZOLEDRONIC ACID 4 MG in SODIUM CHLORIDE 100 ML IVPB ONE (08:15)
[2016-10-17 10:53] LABS: BASOPHIL 0.7 % (0-2.0); EOSINOPHIL 1.3 % (0-4.5); MCH 35.3 pg (25.7-33.7); MCHC 33.5 g/dl (32.0-36.0); MEAN CELL VOLUME 105.5 fl (80-96); MEAN PLT VOLUME 8.1 fl (7.5-11.1); NEUTROPHILS 77.5 % (42.8-82.8); PLATELET COUNT 166 K/MM3 (134-434); RDW 17.2 % (11.6-15.6); WHITE BLOOD COUNT 4.1 K/mm3 (4.0-10.0)
[2016-10-17] MEDS ORDERED: fentaNYL 25mcg/hr PATCH.TD72 TD SCH (15:30)
[2016-10-17 17:23] VITALS: TEMP 98.7
[2016-10-17 18:11] VITALS: BP 132/78; PULSE 83
== END 2016-10-17 18:28 | disposition home or self-care (01) ==
LOC: JONCCHEMO 07:05 → J7W 15:09 → JONCCHEMO 18:28
PROVIDERS: ATTEND Internal Medicine Hematology & Oncology
PROC: 3E033GC Introduction of Other Therapeutic Substance into Peripheral Vein, Percutaneous Approach (ICD-10-PCS; principal; 2016-10-17)
DX: C90.00 Multiple myeloma not having achieved remission (principal)
CPT/HCPCS: 96361; 96365; 96375; J3489; 36415; 85025; 96360; 96367

== ENCOUNTER 2016-10-30 10:52 | Emergency (ER) | payer OTHER, BC ==
[2016-10-30 11:37] VITALS: BP 124/73; PULSE 86; TEMP 98.1; BMI 21.4
--- NOTE | 2016-10-30 11:53 | PDOC ---
History of Present Illness - General Chief Complaint: Injury Stated Complaint: FOOT INJURY Time Seen by Provider: 10/30/16 11:27 History Source: Patient Exam Limitations: No Limitations - History of Present Illness Initial Comments: 10/30/16 11:37 Complaint of left foot pain and swelling. 10 days ago was running and sustained a twisting/inversion injury to her left foot. States was swollen and painful, has used ice and tried to elevate but pain has persisted. Patient is currently undergoing radiation therapy for multiple myeloma 10/30/16 16:06 Occurred: reports: last week Severity: reports: mild, moderate Pain Location: reports: lower extremity (left foot) Method of Injury: Yes: fall Modifying Factors: improves with: None, cold therapy, immobilization Loss of Consciousness: no loss of consciousness Associated Symptoms (Fall): denies symptoms Past History - Travel Traveled outside of the country in the last 30 days: No Close contact w/someone who was outside of country & ill: No - Past Medical History Allergies/Adverse Reactions: Allergies Allergy/AdvReac Type Severity Reaction Status Date / Time No Known Allergies Allergy Verified 10/30/16 11:05 Home Medications: Ambulatory Orders Acyclovir [Zovirax -] 400 mg PO ASDIR 12/18/12 Aspirin [ASA -] 81 mg PO DAILY 12/18/12 Levothyroxine [Synthroid -] 125 mcg PO DAILY 12/18/12 Dexamethasone Injection [Decadron] 20 mg IJ WEEKLY 11/23/14 Allopurinol 300 mg PO DAILY 01/31/16 Zometa - 4 mg IV MO 02/01/16 Carvedilol [Coreg] 3.125 mg PO BID 07/09/16 Lisinopril [Zestril] 2.5 mg PO DAILY 07/09/16 Cephalexin [Keflex] 500 mg PO QID 08/22/16 Anemia: Yes (IRON DEFICIENCY) Asthma: No Cancer: Yes Cardiac Disorders: No CVA: No COPD: No CHF: No Dementia: No Diabetes: No GI Disorders: No Disorders: No HTN: No Hypercholesterolemia: No Liver Disease: No Seizures: No Thyroid Disease: Yes (REMOVED) - Surgical History Abdominal Surgery: Yes Appendectomy: Yes Cardiac Surgery: No Cholecystectomy: Yes Lung Surgery: No Neurologic Surgery: No Orthopedic Surgery: No - Psycho/Social/Smoking Cessation Hx Suicidal Ideation: No Smoking Status: Yes Smoking History: Former smoker Have you smoked in the past 12 months: No Number of Cigarettes Smoked Daily: 0 Information on smoking cessation initiated: No 'Breaking Loose' booklet given: 12/18/12 Hx Alcohol Use: No Drug/Substance Use Hx: No Substance Use Type: None Hx Substance Use Treatment: No Trauma Specific PMHX - Complaint Specific PMHX Back Injury: No Neck Injury: No Review of Systems - Review of Systems Able to Perform ROS?: Yes Is the patient limited Serbian proficient: Yes Constitutional: Yes: See HPI. No: Symptoms Reported HEENTM: No: Symptoms Reported Musculoskeletal: Yes: Symptoms Reported, See HPI, Joint Pain (left foot ), Joint Swelling All Other Systems: Reviewed and Negative *Physical Exam - Vital Signs Last Vital Signs Temp Pulse Resp BP Pulse Ox 98.1 F 86 17 124/73 98 10/30/16 11:03 10/30/16 11:03 10/30/16 11:03 10/30/16 11:03 10/30/16 11:03 - Physical Exam Comments: 10/30/16 11:39 General Appearance: Yes: Nourished, Appropriately Dressed, Apparent Distress, Mild Distress HEENT: positive: GABRIEL, Normal ENT Inspection, TMs Normal, Pharynx Normal Neck: positive: Supple. 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 However patient states had recent PET scan and was cleared but will discuss radiology report with oncologist. Rafiq wrap applied, cast shoe provided and will follow-up with orthopedist *DC/Admit/Observation/Transfer Diagnosis at time of Disposition: Fracture of 3rd metatarsal Qualifiers: Encounter type: initial encounter Fracture type: closed Fracture alignment: nondisplaced Laterality: left Qualified Code(s): S92.335A - Nondisplaced fracture of third metatarsal bone, left foot, initial encounter for closed fracture - Discharge Dispostion Disposition: HOME Condition at time of disposition: Stable Admit: No - Referrals Referrals: Peterson Moreno MD [Staff Physician] - - Patient Instructions Printed Discharge Instructions: DI for Foot Fracture Additional Instructions: Rest, ice to area on and off for 15 minutes 4-6 times a day Avoid heavy lifting or exercise until pain and swelling is resolved or until further directed Keep area highly elevated to reduce swelling Use splints/Rafiq wrap as directed Followup with orthopedist in one to 2 days if not improving, if significantly improved may wait one week for followup with orthopedist May use ibuprofen 2-200 mg tablets every 6 hours as needed for pain
== END 2016-10-30 12:02 | disposition home or self-care (01) ==
LOC: JERFT 10:52
DX: S92.335A Nondisplaced fracture of third metatarsal bone, left foot, initial encounter for closed fracture (principal); W18.39XA Other fall on same level, initial encounter; X50.1XXA Overexertion from prolonged static or awkward postures, initial encounter; Y93.02 Activity, running; Y92.89 Other specified places as the place of occurrence of the external cause; C90.00 Multiple myeloma not having achieved remission; D50.8 Other iron deficiency anemias
CPT/HCPCS: 73630-TC-LT; 99281-25

== ENCOUNTER 2016-11-12 13:59 | Day surgery (SDC) | payer BC, OTHER ==
[2016-11-12 14:28] VITALS: TEMP 98.3
[2016-11-12] MEDS ORDERED: CALCITONIN - SALMON SYNTHETIC 400 UNIT/2 ML VIAL IM ONE ×2 (15:45→21:45)
[2016-11-12] MEDS: D5-NS + 20 MEQ KCL - 1,000 ML IV SCH ×2 (15:51→18:51)
--- NOTE | 2016-11-12 16:07 | HP ---
Admitting History and Physical - Admission Chief Complaint: Hypercalcemia. 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 Heme/Onc: Yes: Current Chemotherapy Musculoskeletal: Yes: Other (left foot fracture, back , shoulder, hip pain) Endocrine: Yes: Hypothyroidism - Smoking History Smoking history: Former smoker Have you smoked in the past 12 months: No Aproximately how many cigarettes per day: 0 - Alcohol/Substance Use Hx Alcohol Use: No - Social History ADL: Independent History of Recent Travel: No Home Medications - Allergies Allergies/Adverse Reactions: Allergies Allergy/AdvReac Type Severity Reaction Status Date / Time No Known Allergies Allergy Verified 10/30/16 11:05 - Home Medications Home Medications: Ambulatory Orders Acyclovir [Zovirax -] 400 mg PO ASDIR 12/18/12 Aspirin [ASA -] 81 mg PO DAILY 12/18/12 Levothyroxine [Synthroid -] 125 mcg PO DAILY 12/18/12 Dexamethasone Injection [Decadron] 20 mg IJ WEEKLY 11/23/14 Allopurinol 300 mg PO DAILY 01/31/16 Zometa - 4 mg IV MO 02/01/16 Carvedilol [Coreg] 3.125 mg PO BID 07/09/16 Lisinopril [Zestril] 2.5 mg PO DAILY 07/09/16 Cephalexin [Keflex] 500 mg PO QID 08/22/16 Review of Systems - Review of Systems Constitutional: reports: Weakness Eyes: denies: Blurred Vision, Double Vision HENT: denies: Difficult Swallowing, Throat Pain Neck: denies: Pain on Movement, Stiffness, Tenderness Cardiovascular: denies: Chest Pain, Shortness of Breath Respiratory: denies: SOB, SOB on Exertion Gastrointestinal: denies: Diarrhea, Nausea, Vomiting Genitourinary: denies: Flank Pain, Frequency Musculoskeletal: reports: Back Pain, Extremity Pain, Muscle Weakness Integumentary: denies: Bruising, Eczema, Erythema Endocrine: reports: No Symptoms Hematology/Lymphatic: denies: Easily Bruised, Excessive Bleeding, Swollen Glands Physical Examination Vital Signs: Vital Signs Temperature 98.3 F 11/12/16 14:23 Pulse Rate 86 11/12/16 14:23 Respiratory Rate 16 11/12/16 14:23 Blood Pressure 130/67 11/12/16 14:23 O2 Sat by Pulse Oximetry (%) Constitutional: Yes: Moderate Distress Eyes: Yes: EOM Intact, PERRL. No: Diplopia, Ptosis, Sclera Icterus HENT: Yes: Atraumatic, Normocephalic. No: Epistaxis, Hoarseness, Thrush Neck: Yes: Supple, Trachea Midline. No: Lymphadenopathy, Tenderness, Thyromegaly Cardiovascular: Yes: Regular Rate and Rhythm Respiratory: Yes: Diminished Gastrointestinal: Yes: Soft. No: Ascites, Hepatomegaly, Splenomegaly Breast(s): Yes: WNL. No: Gynecomastia Musculoskeletal: No: Joint Swelling, Muscle Pain Extremities: Yes: Other (left ankle fracture) Edema: No Integumentary: Yes: Tattoos. No: Erythema, Jaundice Neurological: Yes: WNL ...Motor Strength: WNL Psychiatric: Yes: WNL Problem List - Problems (1) Multiple myeloma Assessment/Plan: Due for visit to [facility] [place] to begin investigational chemotherapy; Code(s): C90.00 - MULTIPLE MYELOMA NOT HAVING ACHIEVED REMISSION Qualifiers: (2) Hypercalcemia of malignancy Assessment/Plan: Ca++ --12.2-- For IV hydration and calcitonin Code(s): E83.52 - HYPERCALCEMIA
[2016-11-12] MEDS ORDERED: FUROSEMIDE 40 MG/4 ML INJECTABLE VIAL IVPUSH ONE ×2 (18:45→21:45)
[2016-11-12] MEDS ORDERED: POTASSIUM CHLORIDE TABS 20 MEQ TABLET.ER (FP) PO ONE ×2 (18:45→21:45)
[2016-11-12 22:04] LABS: MCH 34.7 pg (25.7-33.7); MEAN CELL VOLUME 105.2 fl (80-96); MEAN PLT VOLUME 7.9 fl (7.5-11.1); PLATELET COUNT 76 K/MM3 (134-434); RDW 16.6 % (11.6-15.6); WHITE BLOOD COUNT 3.3 K/mm3 (4.0-10.0)
[2016-11-12 22:18] VITALS: BP 114/60; PULSE 92
[2016-11-12 23:03] LABS: ALBUMIN 2.7 g/dl (3.4-5.0); ALK PHOS 77 U/L (45-117); ANION GAP 6 (8-16); BILIRUBIN,TOTAL 0.3 mg/dL (0.2-1.0); CALCIUM 9.9 mg/dL (8.5-10.1); CO2 25 mmol/L (21-32); COCKROFT - GAULT 0; CREATININE 0.5 mg/dL (0.55-1.02); GLUCOSE,RANDOM 144 mg/dL (74-106); SGOT/AST 61 U/L (15-37); SGPT/ALT 18 U/L (12-78)
== END 2016-11-12 23:40 | disposition home or self-care (01) ==
LOC: J7W 13:59 → JONCNONCHE 13:59
PROVIDERS: ATTEND Internal Medicine Hematology & Oncology
PROC: 3E033GC Introduction of Other Therapeutic Substance into Peripheral Vein, Percutaneous Approach (ICD-10-PCS; principal; 2016-11-12)
DX: C90.00 Multiple myeloma not having achieved remission (principal); E83.52 Hypercalcemia
CPT/HCPCS: 36415; 80053; 85027; 96360; 96361

== ENCOUNTER 2016-11-14 12:16 | Inpatient (IN) | payer BC, OTHER ==
[2016-11-14 12:39] LABS: MCH 35.4 pg (25.7-33.7); MCHC 33.5 g/dl (32.0-36.0); MEAN CELL VOLUME 105.4 fl (80-96); MEAN PLT VOLUME 7.5 fl (7.5-11.1); PLATELET COUNT 79 K/MM3 (134-434); RDW 16.2 % (11.6-15.6); WHITE BLOOD COUNT 5.9 K/mm3 (4.0-10.0)
[2016-11-14 12:52] LABS: INR 1.19 (0.82-1.09); PROTHROMBIN TIME (PATIENT) 13.1 SEC (9.98-11.88)
[2016-11-14 16:04] VITALS: BMI 19.6
[2016-11-14] MEDS: fentaNYL 12mcg/hr PATCH.TD72 TD SCH (21:33)
[2016-11-14] MEDS: ALLOPURINOL 100 MG TABLET (FP) PO SCH (21:34)
[2016-11-14] MEDS: CARVEDILOL 3.125 MG TABLET (FP) PO SCH (21:34)
--- NOTE | 2016-11-14 22:43 | HP ---
History and Physical History and Physical: Patient seen and examined 61 y/o patient with multiply relapsed myeloma here for salvage DCEP chemotherapy No fevers/chills/cough/SOB/abdominal pain/nausea/vomiting/diarrhea/urinary symptoms AFVSS Cor: RSR, No murmurs, No gallops Lungs: Clear to P&A Abd: Soft, Normal bowel sounds, No organomegaly Ext:No significant edema Skin: No rashes, Integument intact A/P 61 y/o patient with multiple myeloma, multiply relapsed, now to start DCEP For portplacement in am Getting PRBCs today monodonor platelets prior to port insertion in am restart coreg/lisinopril/home meds pain control monitor lytes/cbc
[2016-11-14] MEDS ORDERED: FUROSEMIDE 40 MG/4 ML INJECTABLE VIAL IVPUSH ONE (23:00)
[2016-11-15] MEDS ORDERED: LEVOFLOXACIN 250 MG TABLET (FP) PO SCH (06:00)
[2016-11-15] MEDS: LEVOTHYROXINE NA 125 MCG TABLET (FP) PO SCH (06:42)
[2016-11-15] MEDS ORDERED: ONDANSETRON INJECTION 8 MG in SODIUM CHLORIDE 50 ML IVPB SCH (07:30)
[2016-11-15] MEDS ORDERED: DEXAMETHASONE 4 MG TABLET (FP) PO SCH (07:30)
[2016-11-15 07:41] LABS: MCH 33.9 pg (25.7-33.7); MCHC 35.1 g/dl (32.0-36.0); MEAN CELL VOLUME 96.5 fl (80-96); MEAN PLT VOLUME 8.3 fl (7.5-11.1); PLATELET COUNT 131 K/MM3 (134-434); RDW 21.5 % (11.6-15.6); WHITE BLOOD COUNT 4.3 K/mm3 (4.0-10.0)
[2016-11-15 07:56] LABS: INR 1.19 (0.82-1.09); PROTHROMBIN TIME (PATIENT) 13.1 SEC (9.98-11.88)
[2016-11-15 07:58] LABS: ACTIVATED PTT 26.7 SECONDS (26.9-34.4)
[2016-11-15] MEDS ORDERED: POTASSIUM CHLORIDE IV SCH (08:00)
[2016-11-15] MEDS ORDERED: DEXTROSE 5%-0.45% SALINE 1,000 ML IV SCH ×4 (08:00→23:15)
[2016-11-15] MEDS ORDERED: [UNRECOGNIZED DRUG - OTHER] IV SCH (08:00)
[2016-11-15] MEDS ORDERED: CISPLATIN IV SCH (08:00)
[2016-11-15] MEDS ORDERED: ETOPOSIDE IV SCH (08:00)
[2016-11-15 08:16] LABS: ALBUMIN 2.8 g/dl (3.4-5.0); ANION GAP 9 (8-16); CALCIUM 12.2 mg/dL (8.5-10.1); CO2 27 mmol/L (21-32); COCKROFT - GAULT 83.1215; CREATININE 0.6 mg/dL (0.55-1.02); GLUCOSE,RANDOM 90 mg/dL (74-106); MAGNESIUM 1.2 mg/dL (1.8-2.4); PHOSPHOROUS 2.1 mg/dL (2.5-4.9); SGOT/AST 64 U/L (15-37); SGPT/ALT 17 U/L (12-78); URIC ACID 3.9 mg/dL (2.6-7.2)
[2016-11-15 08:18] LABS: ALK PHOS 81 U/L (45-117); BILIRUBIN,TOTAL 1.9 mg/dL (0.2-1.0); LDH 189 U/L (84-246); TOT PROT 8.5 g/dl (6.4-8.2)
[2016-11-15] MEDS ORDERED: MAGNESIUM SULF 50% (8.12 MEQ/2 ML-1 GM VIAL) IVPB ONE (09:15)
[2016-11-15] MEDS ORDERED: ATOVAQUONE 750 MG/5 ML (UNIT-DOSE PACKAGING) PO SCH (10:00)
[2016-11-15] MEDS ORDERED: ALLOPURINOL 100 MG TABLET (FP) PO SCH ×2 (10:00)
[2016-11-15 11:55] LABS: PLATELET ESTIMATE DECREASED (NORMAL)
[2016-11-15] MEDS ORDERED: MIDAZOLAM HCL 2 MG/2 ML SINGLE DOSE VIAL IVPUSH ONE ×2 (12:30)
[2016-11-15] MEDS: POTASSIUM CHLORIDE TABS 20 MEQ TABLET.ER (FP) PO SCH (12:32)
[2016-11-15] MEDS: CARVEDILOL 3.125 MG TABLET (FP) PO SCH ×2 (12:32→22:08)
[2016-11-15] MEDS: ALLOPURINOL 100 MG TABLET (FP) PO SCH (12:33)
[2016-11-15] MEDS: LISINOPRIL 5 MG TABLET (FP) PO SCH (12:33)
[2016-11-15] MEDS: PANTOPRAZOLE 40 MG TABLET (FP) PO SCH (12:33)
[2016-11-15] MEDS: FUROSEMIDE 20 MG TABLET (FP) PO SCH (12:33)
[2016-11-15] MEDS ORDERED: PT OWN MED DRAWER 7, Y5N ONE (12:37)
[2016-11-15] MEDS: ACYCLOVIR 400 MG TABLET PO SCH (12:40)
[2016-11-15] MEDS: CYCLOPHOSPHAMIDE IVPB SCH (13:49)
[2016-11-15] MEDS: SODIUM CHLORIDE IVPB SCH (13:49)
--- NOTE | 2016-11-15 23:24 | PN ---
Progress Note (short form) - Note Progress Note: Patient seen and examined s/p monodonor platelets and port insertion AFVSS Cor: RSR, No murmurs, No gallops Lungs: Clear to P&A Abd: Soft, Normal bowel sounds, No organomegaly Ext:No significant edema Labs/meds reviewed a/p 61 y/o patient with myeloma, strting DCEP got port inserted replete magnesium to start DCEP monitor lyew/cbc closely
[2016-11-16] MEDS ORDERED: ONDANSETRON 4 MG/2 ML VIAL ONE (00:02)
[2016-11-16] MEDS: ONDANSETRON INJECTION 8 MG in SODIUM CHLORIDE 50 ML IVPB SCH ×2 (00:15→13:26)
[2016-11-16] MEDS: LEVOTHYROXINE NA 125 MCG TABLET (FP) PO SCH (06:11)
[2016-11-16 07:49] LABS: MCHC 35.1 g/dl (32.0-36.0); MEAN PLT VOLUME 8.4 fl (7.5-11.1); PLATELET COUNT 109 K/MM3 (134-434); WHITE BLOOD COUNT 5.9 K/mm3 (4.0-10.0)
[2016-11-16 08:17] LABS: ALBUMIN 2.7 g/dl (3.4-5.0); ANION GAP 13 (8-16); CALCIUM 10.5 mg/dL (8.5-10.1); CO2 20 mmol/L (21-32); GLUCOSE,RANDOM 122 mg/dL (74-106); MAGNESIUM 2.3 mg/dL (1.8-2.4)
[2016-11-16 08:21] LABS: ALK PHOS 75 U/L (45-117); BILIRUBIN,TOTAL 0.9 mg/dL (0.2-1.0); COCKROFT - GAULT 83.1215; CREATININE 0.6 mg/dL (0.55-1.02); SGOT/AST 65 U/L (15-37); SGPT/ALT 20 U/L (12-78); TOT PROT 8.7 g/dl (6.4-8.2)
[2016-11-16] MEDS ORDERED: PT OWN MED DRAWER 7, Y5N ONE (09:27)
[2016-11-16] MEDS: ALLOPURINOL 100 MG TABLET (FP) PO SCH (09:34)
[2016-11-16] MEDS: PANTOPRAZOLE 40 MG TABLET (FP) PO SCH (09:35)
[2016-11-16] MEDS: LISINOPRIL 5 MG TABLET (FP) PO SCH (09:35)
[2016-11-16] MEDS: FUROSEMIDE 20 MG TABLET (FP) PO SCH (09:35)
[2016-11-16] MEDS: CARVEDILOL 3.125 MG TABLET (FP) PO SCH ×2 (09:35→21:41)
[2016-11-16] MEDS: POTASSIUM CHLORIDE TABS 20 MEQ TABLET.ER (FP) PO SCH (09:35)
[2016-11-16] MEDS: ACYCLOVIR 400 MG TABLET PO SCH (09:35)
[2016-11-16] MEDS ORDERED: ASPIRIN COATED 81 MG TABLET.EC PO SCH (10:00)
[2016-11-16] MEDS ORDERED: ENOXAPARIN NA (PORCINE) 40 MG/0.4 ML DISP.SYRIN SQ SCH (10:00)
[2016-11-16] MEDS ORDERED: SODIUM CHLORIDE IV SCH ×2 (10:21→14:45)
[2016-11-16] MEDS ORDERED: CISPLATIN IV SCH ×2 (10:21→14:45)
[2016-11-16] MEDS ORDERED: ETOPOSIDE IV SCH ×2 (10:21→14:45)
[2016-11-16] MEDS: SODIUM CHLORIDE 1,000 ML IV SCH (10:26)
[2016-11-16 10:54] LABS: ANISOCYTOSIS 1+; HYPOCHROMIA 1+; PLATELET COMMENT2 NO CLOTTING DETECTED; PLATELET ESTIMATE SLT DECREASED (NORMAL)
[2016-11-16 12:35] LABS: URIC ACID 2.7 mg/dL (2.6-7.2)
--- NOTE | 2016-11-16 12:44 | PN ---
Progress Note (short form) - Note Progress Note: Progress Note: Patient seen in follow up. No events overnight. Reports diffuse back pain (baseline) and some discomfort at port. Chemotherapy infusion without complication. Meds reviewed. Current Medications Generic Name Dose Route Start Last Admin Trade Name Freq PRN Reason Stop Dose Admin Acyclovir 400 mg 11/15/16 10:00 11/16/16 09:35 Zovirax - PO 400 mg DAILY TANIYA Administration Allopurinol 300 mg 11/14/16 22:00 11/16/16 09:34 Zyloprim - PO 300 mg DAILY TANIYA Administration Aspirin 81 mg 11/16/16 10:00 11/16/16 09:34 Ecotrin - PO 81 mg DAILY TANIYA Administration Carvedilol 3.125 mg 11/14/16 22:00 11/16/16 09:35 Coreg - PO 3.125 mg BID TANIYA Administration Dexamethasone 40 mg 11/16/16 12:30 Decadron - PO 11/18/16 12:31 DAILY@1230 TANIYA Enoxaparin Sodium 40 mg 11/16/16 10:00 11/16/16 10:27 Lovenox - SQ 40 mg DAILY TANIYA Administration Fentanyl 1 patch 11/14/16 20:00 11/14/16 21:33 Duragesic 12mcg Patch - TD 1 patch Q72H TANIYA Administration Furosemide 20 mg 11/15/16 10:00 11/16/16 09:35 Lasix - PO 20 mg DAILY TANIYA Administration Hydrocodone Bitartrate/Ibuprofen 1 tab 11/16/16 10:00 Vicoprofen 7.5/200 Mg [Nf Medication] PO Q6H PRN Cyclophosphamide 490 mg/ 1,000 mls @ 41.667 mls/hr 11/15/16 08:00 11/15/16 13: 49 Sodium Chloride IVPB 11/19/16 07:59 41.667 mls/hr DAILY@0800 TANIYA Administration Ondansetron HCl 8 mg/ Sodium 54 mls @ 216 mls/hr 11/16/16 00:30 11/16/16 00:15 Chloride IVPB 11/19/16 00:44 216 mls/hr Q12H TANIYA Administration Sodium Chloride 1,000 mls @ 83 mls/hr 11/16/16 10:00 11/16/16 10:26 Normal Saline - IV 83 mls/hr ASDIR TANIYA Administration Etoposide 49 mg/ Cisplatin 16 1,018.45 mls @ 43.519 mls/hr 11/16/16 10:21 mg/ Sodium Chloride IV 11/19/16 07:25 DAILY@0800 TANIYA Levothyroxine Sodium 125 mcg 11/15/16 07:00 11/16/16 06:11 Synthroid - PO 125 mcg DAILY@0700 TANIYA Administration Lisinopril 2.5 mg 11/15/16 10:00 11/16/16 09:35 Prinivil PO 2.5 mg DAILY TANIYA Administration Pantoprazole Sodium 40 mg 11/15/16 10:00 11/16/16 09:35 Protonix - PO 40 mg DAILY TANIYA Administration On examination: Last Vital Signs Temp Pulse Resp BP Pulse Ox 97.6 F 74 16 132/77 96 11/16/16 10:39 11/16/16 10:39 11/16/16 10:39 11/16/16 10:39 11/16/16 07:46 General: In no acute distress. Oropharyngeal: No signs mucosal hemorrhage, no mucosal lesions. Extremities: No pallor, no icterus, no pedal edema. Chest:good air entry bilaterally, clear. Abdomen: Distended, but resonant throughout, soft, no organomegaly, no masses. Neuro: Alert and oriented, non-focal. CVS: Normal sinus rhythm, S1, S2, no gallop or murmur. Skin: No rash. Labs reviewed: CBC, BMP 11/16/16 06:00 11/16/16 06:00 Assessment: Multiply relapsed myeloma - now Day 2 salvage chemotherapy DCEP - tolerating. Hypercalcemia yesterday improved today. Avoiding bisphosphonates - recent concern for ONJ. Observe - saline diuresis vs calcitonin if needed. Close monitorig magnesium. Appropriate antiemesis ordered - nausea controlled. Caution with opioids.
[2016-11-16] MEDS: DEXAMETHASONE 4 MG TABLET (FP) PO SCH (13:24)
[2016-11-16] MEDS: CYCLOPHOSPHAMIDE IVPB SCH (14:48)
[2016-11-16] MEDS: SODIUM CHLORIDE IVPB SCH (14:48)
[2016-11-16 16:34] LABS: ALBUMIN 2.6 g/dl (3.4-5.0); ALK PHOS 73 U/L (45-117); ANION GAP 13 (8-16); BILIRUBIN,TOTAL 0.5 mg/dL (0.2-1.0); CALCIUM 9.6 mg/dL (8.5-10.1); CO2 22 mmol/L (21-32); CREATININE 0.7 mg/dL (0.55-1.02); GLUCOSE,RANDOM 121 mg/dL (74-106); MAGNESIUM 2.1 mg/dL (1.8-2.4); SGOT/AST 112 U/L (15-37); SGPT/ALT 44 U/L (12-78); TOT PROT 8.2 g/dl (6.4-8.2)
[2016-11-16] MEDS ORDERED: oxyCODONE HCL 5 MG TABLET PO PRN ×2 (18:54→18:55)
[2016-11-16] MEDS ORDERED: MAGNESIUM SULF 50% (8.12 MEQ/2 ML-1 GM VIAL) IVPB ONE (22:45)
[2016-11-17] MEDS: SODIUM CHLORIDE 1,000 ML IV SCH ×2 (00:12→14:52)
[2016-11-17] MEDS: ONDANSETRON INJECTION 8 MG in SODIUM CHLORIDE 50 ML IVPB SCH ×2 (00:12→15:07)
[2016-11-17] MEDS: LEVOTHYROXINE NA 125 MCG TABLET (FP) PO SCH (06:04)
[2016-11-17 07:43] LABS: BASOPHIL 0.1 % (0-2.0); EOSINOPHIL 0.1 % (0-4.5); MCH 33.7 pg (25.7-33.7); MCHC 34.2 g/dl (32.0-36.0); MEAN CELL VOLUME 98.6 fl (80-96); MEAN PLT VOLUME 8.5 fl (7.5-11.1); NEUTROPHILS 82.9 % (42.8-82.8); PLATELET COUNT 79 K/MM3 (134-434); RDW 20.4 % (11.6-15.6); WHITE BLOOD COUNT 3.7 K/mm3 (4.0-10.0)
[2016-11-17] MEDS ORDERED: ETOPOSIDE IV SCH (08:00)
[2016-11-17] MEDS ORDERED: SODIUM CHLORIDE IV SCH (08:00)
[2016-11-17] MEDS ORDERED: CISPLATIN IV SCH (08:00)
[2016-11-17 08:15] LABS: ALBUMIN 2.4 g/dl (3.4-5.0); ANION GAP 11 (8-16); CALCIUM 9.5 mg/dL (8.5-10.1); CO2 20 mmol/L (21-32); GLUCOSE,RANDOM 132 mg/dL (74-106); MAGNESIUM 1.9 mg/dL (1.8-2.4)
[2016-11-17 08:19] LABS: ALK PHOS 77 U/L (45-117); BILIRUBIN,TOTAL 0.5 mg/dL (0.2-1.0); COCKROFT - GAULT 83.1215; CREATININE 0.6 mg/dL (0.55-1.02); SGOT/AST 290 U/L (15-37); SGPT/ALT 191 U/L (12-78); TOT PROT 7.7 g/dl (6.4-8.2); URIC ACID 3.1 mg/dL (2.6-7.2)
[2016-11-17] MEDS ORDERED: PT OWN MED DRAWER 7, Y5N ONE (09:39)
[2016-11-17] MEDS: FUROSEMIDE 20 MG TABLET (FP) PO SCH (09:42)
[2016-11-17] MEDS: ACYCLOVIR 400 MG TABLET PO SCH (09:42)
[2016-11-17] MEDS: PANTOPRAZOLE 40 MG TABLET (FP) PO SCH (09:42)
[2016-11-17] MEDS: CARVEDILOL 3.125 MG TABLET (FP) PO SCH ×2 (09:42→21:30)
[2016-11-17] MEDS: ALLOPURINOL 100 MG TABLET (FP) PO SCH (09:43)
[2016-11-17] MEDS: LISINOPRIL 5 MG TABLET (FP) PO SCH (09:44)
--- NOTE | 2016-11-17 10:37 | CONSULT ---
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 Musculoskeletal: Yes: Other (left foot fracture, back , shoulder, hip pain) Endocrine: Yes: Hypothyroidism - Alcohol/Substance Use Hx Alcohol Use: No - Smoking History Smoking history: Former smoker Have you smoked in the past 12 months: No Aproximately how many cigarettes per day: 0 - Social History ADL: Independent History of Recent Travel: No Home Medications - Allergies Allergies/Adverse Reactions: Allergies Allergy/AdvReac Type Severity Reaction Status Date / Time No Known Allergies Allergy Verified 10/30/16 11:05 - Home Medications Home Medications: Ambulatory Orders Acyclovir [Zovirax -] 400 mg PO ASDIR 12/18/12 Aspirin [ASA -] 81 mg PO DAILY 12/18/12 Levothyroxine [Synthroid -] 125 mcg PO DAILY 12/18/12 Allopurinol 300 mg PO DAILY 01/31/16 Carvedilol [Coreg] 3.125 mg PO BID 07/09/16 Lisinopril [Zestril] 2.5 mg PO DAILY 07/09/16 FENTANYL 12mcg PATCH 25 mcg TD Q72H 11/14/16 Family Disease History - Family Disease History Family History: Unremarkable Review of Systems - Review of Systems Constitutional: denies: Chills, Fever Eyes: reports: No Symptoms HENT: reports: No Symptoms Cardiovascular: denies: Chest Pain Respiratory: denies: Cough Gastrointestinal: denies: Abdominal Pain Neurological: denies: Change in LOC Pain Intensity: 3 Physical Exam Vital Signs: Vital Signs Temperature 98.1 F 11/17/16 09:25 Pulse Rate 76 11/17/16 09:25 Respiratory Rate 18 11/17/16 09:25 Blood Pressure 130/76 11/17/16 09:25 O2 Sat by Pulse Oximetry (%) 97 11/16/16 21:00 Constitutional: Yes: Calm Eyes: Yes: WNL Neck: Yes: Tenderness (Neck/left chest: Some tenderness near the port site. No erythema, no fluctuance, no purulent discharge. + serous drainage. Dressing intact.) Cardiovascular: Yes: Regular Rate and Rhythm Respiratory: Yes: Regular Gastrointestinal: Yes: Normal Bowel Sounds. No: Soft, Tenderness Neurological: Yes: Alert, Oriented Labs: CBC, BMP 11/17/16 06:00 11/17/16 06:00 Problem List - Problems (1) Multiple myeloma Code(s): C90.00 - MULTIPLE MYELOMA NOT HAVING ACHIEVED REMISSION Qualifiers: Multiple myeloma remission status: unspecified Qualified Code(s): C90.00 - Multiple myeloma not having achieved remission Assessment/Plan 61 female with multiple myeloma s/p port placement by IR + Serous/serosanguinous drainage from lateral aspect of dressing No signs of infection Discussed in detail with patient and Dr Willis Continue dressing care No drainage needed U/S of area to look for seroma
[2016-11-17] MEDS: DEXAMETHASONE 4 MG TABLET (FP) PO SCH (15:08)
[2016-11-17] MEDS: CYCLOPHOSPHAMIDE IVPB SCH (15:50)
[2016-11-17] MEDS: SODIUM CHLORIDE IVPB SCH ×2 (15:50→19:33)
[2016-11-17] MEDS: SODIUM CHLORIDE IV SCH (16:05)
[2016-11-17] MEDS: CISPLATIN IV SCH (16:05)
[2016-11-17] MEDS: ETOPOSIDE IV SCH (16:05)
[2016-11-17 16:17] LABS: ALBUMIN 2.7 g/dl (3.4-5.0); ANION GAP 13 (8-16); CALCIUM 9.4 mg/dL (8.5-10.1); CO2 21 mmol/L (21-32); COCKROFT - GAULT 83.1215; CREATININE 0.6 mg/dL (0.55-1.02); GLUCOSE,RANDOM 100 mg/dL (74-106); MAGNESIUM 1.8 mg/dL (1.8-2.4); SGOT/AST 258 U/L (15-37); SGPT/ALT 198 U/L (12-78)
[2016-11-17 16:19] LABS: ALK PHOS 83 U/L (45-117); BILIRUBIN,TOTAL 0.7 mg/dL (0.2-1.0); TOT PROT 8.3 g/dl (6.4-8.2)
--- NOTE | 2016-11-17 19:25 | PN ---
Progress Note (short form) - Note Progress Note: Progress Note: Patient seen in follow up. On Reports diffuse back pain (baseline). Pain/discomfort at port site, with serous drainage noted this am. Extravasation of chemotherapy not suspected by infusion nurse - drainage occurring when chemo was not infusing. Meds reviewed. Current Medications Generic Name Dose Route Start Last Admin Trade Name Freq PRN Reason Stop Dose Admin Acyclovir 400 mg 11/15/16 10:00 11/17/16 09:42 Zovirax - PO 400 mg DAILY TANIYA Administration Allopurinol 300 mg 11/14/16 22:00 11/17/16 09:43 Zyloprim - PO 300 mg DAILY TANIYA Administration Carvedilol 3.125 mg 11/14/16 22:00 11/17/16 09:42 Coreg - PO 3.125 mg BID TANIYA Administration Dexamethasone 40 mg 11/16/16 12:30 11/17/16 15:08 Decadron - PO 11/18/16 12:31 40 mg DAILY@1230 TANIYA Administration Fentanyl 1 patch 11/14/16 20:00 11/14/16 21:33 Duragesic 12mcg Patch - TD 1 patch Q72H TANIYA Administration Furosemide 20 mg 11/15/16 10:00 11/17/16 09:42 Lasix - PO 20 mg DAILY TANIYA Administration Hydrocodone Bitartrate/Ibuprofen 1 tab 11/16/16 10:00 Vicoprofen 7.5/200 Mg [Nf Medication] PO Q6H PRN Cyclophosphamide 490 mg/ 1,000 mls @ 41.667 mls/hr 11/15/16 08:00 11/17/16 15: 50 Sodium Chloride IVPB 11/19/16 07:59 41.667 mls/hr DAILY@0800 TANIYA Administration Ondansetron HCl 8 mg/ Sodium 54 mls @ 216 mls/hr 11/16/16 00:30 11/17/16 15:07 Chloride IVPB 11/19/16 00:44 216 mls/hr Q12H TANIYA Administration Etoposide 49 mg/ Cisplatin 16 1,018.45 mls @ 43.519 mls/hr 11/17/16 16:15 11/17 16:05 mg/ Sodium Chloride IV 11/18/16 16:14 43.519 mls/hr DAILY@0800 TAINYA Administration Magnesium Sulfate 2.5 gm/ 1,005 mls @ 83 mls/hr 11/17/16 17:45 Sodium Chloride IVPB Q12H TANIYA Levothyroxine Sodium 125 mcg 11/15/16 07:00 11/17/16 06:04 Synthroid - PO 125 mcg DAILY@0700 TANIYA Administration Lisinopril 2.5 mg 11/15/16 10:00 11/17/16 09:44 Prinivil PO 2.5 mg DAILY TANIYA Administration Oxycodone HCl 5 mg 11/16/16 18:54 Roxicodone - PO Q4H PRN Oxycodone HCl 10 mg 11/16/16 18:55 Roxicodone - PO Q4H PRN Pantoprazole Sodium 40 mg 11/15/16 10:00 11/17/16 09:42 Protonix - PO 40 mg DAILY TANIYA Administration On examination: Last Vital Signs Temp Pulse Resp BP Pulse Ox 98.0 F 65 18 145/74 97 11/17/16 17:33 11/17/16 17:33 11/17/16 17:33 11/17/16 17:33 11/16/16 21:00 General: In no acute distress. Oropharyngeal: No signs mucosal hemorrhage, no mucosal lesions. Extremities: No pallor, no icterus, no pedal edema. Chest:good air entry bilaterally, clear. Abdomen: Distended, but resonant throughout, soft, no organomegaly, no masses. Neuro: Alert and oriented, non-focal. CVS: Normal sinus rhythm, S1, S2, no gallop or murmur. Skin: No rash. Port L chest wall. No visible swelling, no erythema. Labs reviewed: CBC, BMP 11/17/16 06:00 11/17/16 15:30 Assessment: Multiply relapsed myeloma - now Day 3 salvage chemotherapy DCEP - tolerating. Hypercalcemia 2 days ago, improved today. Avoiding bisphosphonates - recent concern for ONJ. Observe - saline diuresis vs calcitonin if needed. Close monitorig magnesium. Appropriate antiemesis ordered - nausea controlled. Caution with opioids. CXR unremarkable as regard port. US pending. Appreciate input surgery. Allow drainage of /periport hematoma/seroma. Cleared for ongoing use of port for chemotherapy.
[2016-11-17] MEDS: MAGNESIUM SULFATE IVPB SCH (19:33)
[2016-11-17] MEDS: fentaNYL 12mcg/hr PATCH.TD72 TD SCH (20:27)
[2016-11-17] MEDS ORDERED: FENTANYL PATCH WASTE TD PRN (20:52)
[2016-11-18] MEDS: ONDANSETRON INJECTION 8 MG in SODIUM CHLORIDE 50 ML IVPB SCH ×2 (00:13→12:55)
[2016-11-18] MEDS: MAGNESIUM SULFATE IVPB SCH (06:06)
[2016-11-18] MEDS: SODIUM CHLORIDE IVPB SCH ×2 (06:06→13:44)
[2016-11-18] MEDS: LEVOTHYROXINE NA 125 MCG TABLET (FP) PO SCH (06:42)
[2016-11-18] MEDS ORDERED: FENTANYL PATCH WASTE TD PRN (07:19)
[2016-11-18] MEDS: IBUPROFEN PO PRN ×3 (07:22→23:13)
[2016-11-18] MEDS: HYDROCODONE PO PRN ×3 (07:22→23:13)
[2016-11-18] MEDS ORDERED: fentaNYL 12mcg/hr PATCH.TD72 TD SCH (07:30)
[2016-11-18 07:49] LABS: BASOPHIL 0.2 % (0-2.0); MCH 33.7 pg (25.7-33.7); MCHC 34.3 g/dl (32.0-36.0); MEAN CELL VOLUME 98.4 fl (80-96); MEAN PLT VOLUME 8.3 fl (7.5-11.1); NEUTROPHILS 91.8 % (42.8-82.8); PLATELET COUNT 108 K/MM3 (134-434); RDW 20.1 % (11.6-15.6); WHITE BLOOD COUNT 3.8 K/mm3 (4.0-10.0)
[2016-11-18 08:11] LABS: ALBUMIN 2.5 g/dl (3.4-5.0); ALK PHOS 78 U/L (45-117); ANION GAP 9 (8-16); BILIRUBIN,TOTAL 0.4 mg/dL (0.2-1.0); CALCIUM 9.2 mg/dL (8.5-10.1); CO2 23 mmol/L (21-32); COCKROFT - GAULT 83.1215; CREATININE 0.6 mg/dL (0.55-1.02); GLUCOSE,RANDOM 113 mg/dL (74-106); MAGNESIUM 2.5 mg/dL (1.8-2.4); SGOT/AST 200 U/L (15-37); SGPT/ALT 165 U/L (12-78); TOT PROT 7.5 g/dl (6.4-8.2); URIC ACID 3.7 mg/dL (2.6-7.2)
[2016-11-18] MEDS ORDERED: PT OWN MED DRAWER 7, Y5N ONE (08:54)
[2016-11-18] MEDS: LISINOPRIL 5 MG TABLET (FP) PO SCH (09:03)
[2016-11-18] MEDS: ALLOPURINOL 100 MG TABLET (FP) PO SCH (09:03)
[2016-11-18] MEDS: PANTOPRAZOLE 40 MG TABLET (FP) PO SCH (09:03)
[2016-11-18] MEDS: ACYCLOVIR 400 MG TABLET PO SCH (09:03)
[2016-11-18] MEDS: FUROSEMIDE 20 MG TABLET (FP) PO SCH (09:03)
[2016-11-18] MEDS: CARVEDILOL 3.125 MG TABLET (FP) PO SCH ×2 (09:03→23:12)
[2016-11-18] MEDS ORDERED: SODIUM CHLORIDE 1,000 ML IV SCH (09:45)
[2016-11-18] MEDS: DEXAMETHASONE 4 MG TABLET (FP) PO SCH (12:55)
[2016-11-18] MEDS: CYCLOPHOSPHAMIDE IVPB SCH (13:44)
[2016-11-18] MEDS: SODIUM CHLORIDE IV SCH (13:45)
[2016-11-18] MEDS: CISPLATIN IV SCH (13:45)
[2016-11-18] MEDS: ETOPOSIDE IV SCH (13:45)
--- NOTE | 2016-11-18 14:33 | PN ---
Progress Note (short form) - Note Progress Note: Patient seen and examined serous drainage from lateral port generalized bony pains in the chest Last Vital Signs Temp Pulse Resp BP Pulse Ox 97.9 F 65 18 138/76 96 11/18/16 13:00 11/18/16 13:00 11/18/16 13:00 11/18/16 13:00 11/17/16 21:00 HEENT-nl Cor: RSR, No murmurs, No gallops Lungs: Clear to P&A Abd: Soft, Normal bowel sounds, No organomegaly Ext:No significant edema Abnormal Lab Results 11/14/16 11/17/16 11/18/16 13:55 15:30 06:00 WBC RBC Hgb Hct MCV RDW Plt Count Neutrophils % Lymphocytes % Sodium 135 L BUN 23 H D Random Glucose 113 H Magnesium 2.5 H D AST 258 H 200 H D ALT 198 H 165 H Total Protein 8.3 H Albumin 2.7 L 2.5 L Crossmatch See Detail 11/18/16 06:00 WBC 3.8 L RBC 2.43 L Hgb 8.2 L Hct 23.9 L MCV 98.4 H RDW 20.1 H Plt Count 108 L D Neutrophils % 91.8 H Lymphocytes % 1.5 L D Sodium BUN Random Glucose Magnesium AST ALT Total Protein Albumin Crossmatch a/p 61 y/o patient with myeloma, D3 DCEP Serous drainage from port-- ? seroma there is blood draw from the port and CXR was normal appreciate surgical input discussed with IR Monitoring lytes May need blood transfusion prior to d/c Will need cipro/acyclovir at discharge will d/c magnesium in iv fluids neulasta on fri. f/u in the office
[2016-11-18 18:31] LABS: ALBUMIN 2.7 g/dl (3.4-5.0); ALK PHOS 82 U/L (45-117); ANION GAP 12 (8-16); BILIRUBIN,TOTAL 0.3 mg/dL (0.2-1.0); CALCIUM 8.5 mg/dL (8.5-10.1); CO2 22 mmol/L (21-32); CREATININE 0.8 mg/dL (0.55-1.02); GLUCOSE,RANDOM 175 mg/dL (74-106); MAGNESIUM 1.9 mg/dL (1.8-2.4); SGOT/AST 194 U/L (15-37); SGPT/ALT 154 U/L (12-78); TOT PROT 7.8 g/dl (6.4-8.2)
[2016-11-18] MEDS ORDERED: MAGNESIUM SULF 50% (8.12 MEQ/2 ML-1 GM VIAL) IVPB ONE (19:00)
[2016-11-18] MEDS ORDERED: POTASSIUM CHLORIDE TABS 20 MEQ TABLET.ER (FP) PO ONE (19:15)
[2016-11-19] MEDS: ONDANSETRON INJECTION 8 MG in SODIUM CHLORIDE 50 ML IVPB SCH (00:30)
[2016-11-19] MEDS: SODIUM CHLORIDE 1,000 ML IV SCH ×3 (00:58→14:03)
[2016-11-19] MEDS ORDERED: PT OWN MED DRAWER 7, Y5N ONE ×2 (05:47→08:44)
[2016-11-19] MEDS: LEVOTHYROXINE NA 125 MCG TABLET (FP) PO SCH (06:20)
[2016-11-19 07:31] LABS: BASOPHIL 0.2 % (0-2.0); MCH 33.5 pg (25.7-33.7); MCHC 34.2 g/dl (32.0-36.0); MEAN CELL VOLUME 98.1 fl (80-96); MEAN PLT VOLUME 8.7 fl (7.5-11.1); NEUTROPHILS 96.2 % (42.8-82.8); PLATELET COUNT 92 K/MM3 (134-434); RDW 19.6 % (11.6-15.6); WHITE BLOOD COUNT 3.5 K/mm3 (4.0-10.0)
[2016-11-19] MEDS: HYDROCODONE PO PRN (07:33)
[2016-11-19] MEDS: IBUPROFEN PO PRN (07:33)
[2016-11-19 07:47] LABS: ALBUMIN 2.4 g/dl (3.4-5.0); ALK PHOS 77 U/L (45-117); ANION GAP 10 (8-16); BILIRUBIN,TOTAL 0.4 mg/dL (0.2-1.0); CALCIUM 7.9 mg/dL (8.5-10.1); CO2 22 mmol/L (21-32); CREATININE 0.7 mg/dL (0.55-1.02); GLUCOSE,RANDOM 127 mg/dL (74-106); MAGNESIUM 2.1 mg/dL (1.8-2.4); SGOT/AST 198 U/L (15-37); SGPT/ALT 159 U/L (12-78); TOT PROT 7.2 g/dl (6.4-8.2)
[2016-11-19] MEDS ORDERED: POTASSIUM CHLORIDE TABS 20 MEQ TABLET.ER (FP) PO ONE (08:30)
[2016-11-19] MEDS: PANTOPRAZOLE 40 MG TABLET (FP) PO SCH (09:10)
[2016-11-19] MEDS: CARVEDILOL 3.125 MG TABLET (FP) PO SCH (09:10)
[2016-11-19] MEDS: ACYCLOVIR 400 MG TABLET PO SCH (09:10)
[2016-11-19] MEDS: LISINOPRIL 5 MG TABLET (FP) PO SCH (09:10)
[2016-11-19] MEDS: FUROSEMIDE 20 MG TABLET (FP) PO SCH (09:10)
[2016-11-19] MEDS: ALLOPURINOL 100 MG TABLET (FP) PO SCH (09:10)
[2016-11-19] MEDS ORDERED: HYDROCODONE PO STA (14:32)
[2016-11-19] MEDS ORDERED: IBUPROFEN PO STA (14:32)
--- NOTE | 2016-11-19 17:47 | PN ---
Progress Note (short form) - Note Progress Note: Patient seen and examined c/o pedal edema Last Vital Signs Temp Pulse Resp BP Pulse Ox 98.3 F 66 18 144/87 96 11/19/16 19:08 11/19/16 19:08 11/19/16 19:08 11/19/16 19:08 11/19/16 09:00 HEENT-nl Cor: RSR, No murmurs, No gallops Lungs: Clear to P&A Abd: Soft, Normal bowel sounds, No organomegaly Ext:pedal edema 2+ Abnormal Lab Results 11/19/16 11/19/16 06:00 06:00 WBC 3.5 L RBC 2.42 L Hgb 8.1 L Hct 23.7 L MCV 98.1 H RDW 19.6 H Plt Count 92 L Neutrophils % 96.2 H Lymphocytes % 1.3 L Monocytes % 2.3 L BUN 29 H Random Glucose 127 H D Calcium 7.9 L AST 198 H ALT 159 H Albumin 2.4 L Active Medications Generic Name Dose Route Start Last Admin Trade Name Jonoq PRN Reason Stop Dose Admin Acyclovir 400 mg 11/15/16 10:00 11/19/16 09:10 Zovirax - PO 400 mg DAILY TANIYA Administration Allopurinol 300 mg 11/14/16 22:00 11/19/16 09:10 Zyloprim - PO 300 mg DAILY TANIYA Administration Carvedilol 3.125 mg 11/14/16 22:00 11/19/16 09:10 Coreg - PO 3.125 mg BID TANIYA Administration Fentanyl 1 patch 11/18/16 07:30 11/18/16 07:21 Duragesic 12mcg Patch - TD 1 patch Q72H TANIYA Administration Furosemide 20 mg 11/15/16 10:00 11/19/16 09:10 Lasix - PO 20 mg DAILY TANIYA Administration Sodium Chloride 1,000 mls @ 100 mls/hr 11/18/16 18:46 11/19/16 14:03 Normal Saline - IV 100 mls/hr Q10H TANIYA Administration Levothyroxine Sodium 125 mcg 11/15/16 07:00 11/19/16 06:20 Synthroid - PO 125 mcg DAILY@0700 TANIYA Administration Lisinopril 2.5 mg 11/15/16 10:00 11/19/16 09:10 Prinivil PO 2.5 mg DAILY TANIYA Administration Miscellaneous 1 each 11/18/16 07:19 Duragesic Patch Waste TD PRN PRN Pantoprazole Sodium 40 mg 11/15/16 10:00 11/19/16 09:10 Protonix - PO 40 mg DAILY TANIYA Administration a/p 61 y/o patient with myeloma, D4 DCEP Serous drainage from port-- ? seroma there is blood draw from the port and CXR was normal seen by IR, surgery seroma Monitor Pedal edema-- redose extra dose lasix today with KCL d/c home on acyclovir/cipro/zantac/zofran/compazine/allopurinol to f/u tomorrow for CBC/CMP/Mg/Neulasta
[2016-11-19] MEDS ORDERED: FUROSEMIDE 20 MG TABLET (FP) PO ONE (19:04)
[2016-11-19] MEDS ORDERED: POTASSIUM CHLORIDE TABS 10 MEQ TABLET.ER (FP) PO ONE (19:04)
[2016-11-19 19:09] VITALS: BP 144/87; PULSE 66; TEMP 98.3
== END 2016-11-19 21:31 | disposition home or self-care (01) | DRG 842 ==
LOC: JONCBLOOD 12:16 → J7W 12:18 → JONCBLOOD 12:19
PROVIDERS: ADMIT Internal Medicine Hematology & Oncology; ATTEND Internal Medicine Hematology & Oncology
PROC: 30233N1 Transfusion of Nonautologous Red Blood Cells into Peripheral Vein, Percutaneous Approach (ICD-10-PCS; 2016-11-14)
PROC: 0JH63XZ Insertion of Tunneled Vascular Access Device into Chest Subcutaneous Tissue and Fascia, Percutaneous Approach (ICD-10-PCS; principal; 2016-11-15)
PROC: 3E03305 Introduction of Other Antineoplastic into Peripheral Vein, Percutaneous Approach (ICD-10-PCS; 2016-11-15)
PROC: 30233R1 Transfusion of Nonautologous Platelets into Peripheral Vein, Percutaneous Approach (ICD-10-PCS; 2016-11-15)
DX: C90.00 Multiple myeloma not having achieved remission (principal); E83.52 Hypercalcemia; E03.9 Hypothyroidism, unspecified
CPT/HCPCS: 36415; 36430; 36561; 71010-TC; 77001-TC; 80053; 83615; 83735; 84100; 84550; 85025; 85027; 85610; 85730; 86850; 86900; 86901; 86922; 87045; 87046; 87086; 87177; 87209; 87324; 87328; 87329; 87449; C1788; J9070; J9181; P9034; P9038; P9058

== ENCOUNTER 2016-11-20 09:06 | Day surgery (SDC) | payer BC ==
[2016-11-20 11:20] LABS: EOSINOPHIL 0.2 % (0-4.5); MCH 33.3 pg (25.7-33.7); MCHC 34.1 g/dl (32.0-36.0); MEAN CELL VOLUME 97.7 fl (80-96); MEAN PLT VOLUME 8.5 fl (7.5-11.1); NEUTROPHILS 95.9 % (42.8-82.8); PLATELET COUNT 85 K/MM3 (134-434); RDW 18.8 % (11.6-15.6); WHITE BLOOD COUNT 3.8 K/mm3 (4.0-10.0)
[2016-11-20 11:48] LABS: ALBUMIN 2.7 g/dl (3.4-5.0); ALK PHOS 88 U/L (45-117); ANION GAP 10 (8-16); BILIRUBIN,TOTAL 0.7 mg/dL (0.2-1.0); CALCIUM 7.6 mg/dL (8.5-10.1); CO2 25 mmol/L (21-32); COCKROFT - GAULT 0; CREATININE 0.7 mg/dL (0.55-1.02); GLUCOSE,RANDOM 88 mg/dL (74-106); MAGNESIUM 1.8 mg/dL (1.8-2.4); SGOT/AST 174 U/L (15-37); SGPT/ALT 145 U/L (12-78); TOT PROT 7.2 g/dl (6.4-8.2)
[2016-11-20] MEDS ORDERED: PEGFILGRASTIM 6 MG/0.6 ML DISP.SYRIN SQ ONE (14:00)
[2016-11-20 14:19] VITALS: BP 150/80; PULSE 61; TEMP 98.3
== END 2016-11-20 15:36 | disposition home or self-care (01) ==
LOC: JONCCHEMO 09:06 → J7W 12:18 → JONCCHEMO 15:36
PROVIDERS: ATTEND Internal Medicine Hematology & Oncology
PROC: 3E013GC Introduction of Other Therapeutic Substance into Subcutaneous Tissue, Percutaneous Approach (ICD-10-PCS; principal; 2016-11-20)
DX: C90.00 Multiple myeloma not having achieved remission (principal)
CPT/HCPCS: 96372; J2505; 36415; 80053; 83735; 85025; 93970-TC

== ENCOUNTER 2016-11-22 09:00 | Day surgery (SDC) | payer BC ==
[2016-11-22 10:08] LABS: MCHC 34.5 g/dl (32.0-36.0); MEAN CELL VOLUME 98.5 fl (80-96); MEAN PLT VOLUME 8.4 fl (7.5-11.1); PLATELET COUNT 43 K/MM3 (134-434); WHITE BLOOD COUNT 5.9 K/mm3 (4.0-10.0)
[2016-11-22 10:28] LABS: ALBUMIN 2.7 g/dl (3.4-5.0); ANION GAP 9 (8-16); BILIRUBIN,TOTAL 0.7 mg/dL (0.2-1.0); CALCIUM 7.2 mg/dL (8.5-10.1); CO2 29 mmol/L (21-32); COCKROFT - GAULT 0; CREATININE 0.6 mg/dL (0.55-1.02); GLUCOSE,RANDOM 113 mg/dL (74-106); MAGNESIUM 1.5 mg/dL (1.8-2.4); SGOT/AST 100 U/L (15-37); SGPT/ALT 79 U/L (12-78); TOT PROT 6.9 g/dl (6.4-8.2)
[2016-11-22 10:29] LABS: ALK PHOS 111 U/L (45-117)
[2016-11-22] MEDS ORDERED: MAGNESIUM SULF 50% (8.12 MEQ/2 ML-1 GM VIAL) IVPB ONE (11:15)
[2016-11-22] MEDS ORDERED: POTASSIUM CHLORIDE TABS 20 MEQ TABLET.ER (FP) PO ONE (11:15)
[2016-11-22 11:37] LABS: ANISOCYTOSIS 1+; HYPOCHROMIA 1+; MICROCYTOSIS 1+; PLATELET ESTIMATE DECREASED (NORMAL)
[2016-11-22 14:04] VITALS: BP 145/81; PULSE 80; TEMP 98.4
[2016-11-22] MEDS ORDERED: CALCIUM (OYSTER SHELL) 500 MG TABLET (FP) PO SCH (14:30)
--- NOTE | 2016-11-23 00:06 | HP ---
Satellite H - Chief Complaint Chief Complaint: Patient seen and examined 11/22/16. Feels fatigued. Denies fever/chills/cough/SOB/abdominal pain/diarrhea. 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 Heme/Onc: Yes: Current Chemotherapy Musculoskeletal: Yes: Other (left foot fracture, back , shoulder, hip pain) Endocrine: Yes: Hypothyroidism - Current Medications Current Medications: Home Medications Medication Instructions Recorded Acyclovir [Zovirax -] 400 mg PO ASDIR 12/18/12 Aspirin [ASA -] 81 mg PO DAILY 12/18/12 Levothyroxine [Synthroid -] 125 mcg PO DAILY 12/18/12 Allopurinol 300 mg PO DAILY 01/31/16 Carvedilol [Coreg] 3.125 mg PO BID 07/09/16 Lisinopril [Zestril] 2.5 mg PO DAILY 07/09/16 FENTANYL 12mcg PATCH 25 mcg TD Q72H 11/14/16 Satellite Physical Exam - Physical Examination Vital Signs: Vital Signs Period Temp Pulse Resp BP Sys/Menendez Pulse Ox Last 24 Hr 98.3 F-98.4 F 80-80 20-20 145-145/81-81 General Appearance: Alert & Oriented x3 Lung: Clear to auscultation, Normal air movement Heart: Regular rate & rhythm, Normal S1, Normal S2 Breasts: Other (rt. chest port site--bruising/ecchymosis/. no discharge/ tenderness) Abdomen: Soft, No tenderness Extremities: Other (2+ edema) Satellite Impression/Plan - Impression/Plan Impression: Myeloma. C1 D8 DCEP. Transfuse monodonor platelets. KCl replacement. replace Magnesium oxide. replace calcium. ciprpo/acyclovir. f/ u friday
== END 2016-11-22 15:50 | disposition home or self-care (01) ==
LOC: JONCBLOOD 09:00 → J7W 09:01 → JONCBLOOD 15:50
PROVIDERS: ATTEND Internal Medicine Hematology & Oncology
PROC: 30233R1 Transfusion of Nonautologous Platelets into Peripheral Vein, Percutaneous Approach (ICD-10-PCS; principal; 2016-11-22)
DX: C90.00 Multiple myeloma not having achieved remission (principal)
CPT/HCPCS: 36415; 36430; 80053; 83735; 85025; 86850; 86900; 86901; P9034

== ENCOUNTER 2016-11-27 07:37 | Day surgery (SDC) | payer BC ==
[2016-11-27 10:38] VITALS: TEMP 98.2
[2016-11-27 10:49] LABS: MCH 33.4 pg (25.7-33.7); MCHC 33.5 g/dl (32.0-36.0); MEAN CELL VOLUME 99.7 fl (80-96); MEAN PLT VOLUME 8.9 fl (7.5-11.1); RDW 19.1 % (11.6-15.6)
[2016-11-27 10:50] LABS: WHITE BLOOD COUNT 0.7 K/mm3 (4.0-10.0)
[2016-11-27 10:51] LABS: PLATELET COUNT 25 K/MM3 (134-434)
[2016-11-27] MEDS ORDERED: [UNRECOGNIZED DRUG - REMARK] SQ ONE (11:00)
[2016-11-27 11:02] LABS: ALBUMIN 3.2 g/dl (3.4-5.0); ANION GAP 9 (8-16); CALCIUM 7.7 mg/dL (8.5-10.1); CO2 26 mmol/L (21-32); COCKROFT - GAULT 0; CREATININE 0.6 mg/dL (0.55-1.02); GLUCOSE,RANDOM 97 mg/dL (74-106); SGOT/AST 42 U/L (15-37); SGPT/ALT 32 U/L (12-78)
[2016-11-27 11:03] LABS: ALK PHOS 258 U/L (45-117); BILIRUBIN,TOTAL 0.5 mg/dL (0.2-1.0); TOT PROT 6.7 g/dl (6.4-8.2)
[2016-11-27 11:51] LABS: PLATELET ESTIMATE MARKEDLY DECREASED (NORMAL)
[2016-11-27 11:52] LABS: ANISOCYTOSIS 1+
[2016-11-27 15:38] LABS: MCH 33.6 pg (25.7-33.7); MCHC 33.4 g/dl (32.0-36.0); MEAN CELL VOLUME 100.5 fl (80-96); MEAN PLT VOLUME 7.8 fl (7.5-11.1); PLATELET COUNT 130 K/MM3 (134-434); RDW 18.2 % (11.6-15.6)
[2016-11-27 15:50] VITALS: BP 111/72; PULSE 81
[2016-11-27 16:24] LABS: WHITE BLOOD COUNT 0.9 K/mm3 (4.0-10.0)
== END 2016-11-27 15:46 | disposition home or self-care (01) ==
LOC: JONCBLOOD 07:37 → J7W 10:04 → JONCBLOOD 15:46
PROVIDERS: ATTEND Internal Medicine Hematology & Oncology
PROC: 30233R1 Transfusion of Nonautologous Platelets into Peripheral Vein, Percutaneous Approach (ICD-10-PCS; principal; 2016-11-27)
DX: C90.00 Multiple myeloma not having achieved remission (principal)
CPT/HCPCS: 36415; 36430; 80053; 85027; 86850; 86900; 86901; P9034; P9038

== ENCOUNTER 2016-11-30 23:45 | Inpatient (IN) | payer BC ==
[~2016-11-30 23:45] MED LIST: IMIPENEM/CILASTATIN SODIUM 250 MG in SODIUM CHLORIDE 100 ML IVPB SCH
[2016-11-30] MEDS ORDERED: VANCOMYCIN 1,000 MG in DEXTROSE 5%-WATER - 250 ML IVPB ONE (23:48)
--- NOTE | 2016-12-01 00:07 | PDOC ---
History of Present Illness - General History Source: Patient Exam Limitations: No Limitations - History of Present Illness Initial Comments: 12/01/16 00:42 The patient is a 61 year old female with a significant past medical history of multiple myeloma (on chemotherapy and immunotherapy), peripheral neuropathy, anemia, s/p thyroid removal (on synthroid) who presents to the ED, sent by PMD for admission (Dr. Herrera), for fever. As per Dr. Herrera, the patient has an anterior chest wall port-a-cath in place. Dr. Herrera states there is an infiltrate in the right anterior chest and the area surrounding the port is infected. Patient was put on cipro for port infection but was sent to the ED for having a fever of 102 F at home earlier today. Patient states she recently received 2 units of blood transfusion on . Dr. Herrera request blood cultures, and cultures of the port line under fluoroscopy once admitted. Denies shortness of breath or cough. Denies abdominal pain, nausea, vomiting, or diarrhea. Denies dysuria or changes in urinary output. Denies any other symptoms. <Sue Wolff - Last Filed: 12/01/16 00:42> <Alesha Guy - Last Filed: 12/01/16 01:19> - General Stated Complaint: PCP SENT/EMPLOYEE Time Seen by Provider: 11/30/16 23:47 Past History <Sue Wolff - Last Filed: 12/01/16 00:42> - Past Medical History Anemia: Yes (IRON DEFICIENCY) Asthma: No Cancer: Yes Cardiac Disorders: No CVA: No COPD: No CHF: No Dementia: No Diabetes: No GI Disorders: No Disorders: No HTN: No Hypercholesterolemia: No Liver Disease: No Seizures: No Thyroid Disease: Yes (REMOVED) - Surgical History Abdominal Surgery: Yes Appendectomy: Yes Cardiac Surgery: No Cholecystectomy: Yes Lung Surgery: No Neurologic Surgery: No Orthopedic Surgery: No - Psycho/Social/Smoking Cessation Hx Suicidal Ideation: No Smoking Status: Yes Smoking History: Former smoker Have you smoked in the past 12 months: No Number of Cigarettes Smoked Daily: 0 'Breaking Loose' booklet given: 12/18/12 Hx Alcohol Use: No Drug/Substance Use Hx: No Substance Use Type: None Hx Substance Use Treatment: No <Alesha Guy - Last Filed: 12/01/16 01:19> - Past Medical History Allergies/Adverse Reactions: Allergies Allergy/AdvReac Type Severity Reaction Status Date / Time No Known Allergies Allergy Verified 11/30/16 23:55 Home Medications: Ambulatory Orders Levothyroxine [Synthroid -] 125 mcg PO DAILY 12/18/12 Allopurinol 300 mg PO DAILY 01/31/16 Carvedilol [Coreg] 3.125 mg PO BID 07/09/16 Lisinopril [Zestril] 2.5 mg PO DAILY 07/09/16 FENTANYL 12mcg PATCH 12 mcg TD Q72H 11/14/16 Hydrocodone/Acetaminophen [Vicodin 5-300 mg Tablet] 1 each PO QID PRN 12/01/16 Review of Systems - Review of Systems Able to Perform ROS?: Yes Comments:: 12/01/16 00:42 CONSTITUTIONAL: + fever Absent:, diaphoresis, generalized weakness, malaise, loss of appetite HEENT: Absent: rhinorrhea, nasal congestion, throat pain, throat swelling, difficulty swallowing, mouth swelling, ear pain, eye pain, visual Changes CARDIOVASCULAR: Absent: chest pain, syncope, palpitations, irregular heart rate, lightheadedness , peripheral edema RESPIRATORY: Absent: cough, shortness of breath, dyspnea with exertion, orthopnea, wheezing, stridor, hemoptysis GASTROINTESTINAL: Absent: abdominal pain, abdominal distension, nausea, vomiting, diarrhea, constipation, melena, hematochezia GENITOURINARY: Absent: dysuria, frequency, urgency, hesitancy, hematuria, flank pain, genital pain MUSCULOSKELETAL: Absent: myalgia, arthralgia, joint swelling SKIN: + chest port infection Absent: rash, itching, pallor HEMATOLOGIC/IMMUNOLOGIC: Absent: easy bleeding, easy bruising, lymphadenopathy, frequent infections ENDOCRINE: Absent: unexplained weight gain, unexplained weight loss, heat intolerance, cold intolerance NEUROLOGIC: Absent: headache, focal weakness or paresthesias, dizziness, unsteady gait, seizure, mental status changes, bladder or bowel incontinence PSYCHIATRIC: Absent: anxiety, depression, suicidal or homicidal ideation, hallucinations. All Other Systems: Reviewed and Negative <Sue Wolff - Last Filed: 12/01/16 00:42> *Physical Exam - Vital Signs Last Vital Signs Temp Pulse Resp BP Pulse Ox 98.6 F 109 H 18 134/81 98 11/30/16 23:52 11/30/16 23:52 11/30/16 23:52 11/30/16 23:52 11/30/16 23:52 - Physical Exam Comments: 12/01/16 00:42 GENERAL: Well developed, well nourished. Awake and alert. No acute distress. HEENT: Normocephalic, atraumatic. PERRLA, EOMI. No conjunctival pallor. Sclera are non- icteric. Moist mucous membranes. Oropharynx is clear. NECK: Supple. Full ROM. No JVD. Carotid pulses 2+ and symmetric, without bruits. No thyromegaly. NCo lymphadenopathy. CARDIOVASCULAR: Regular rate and rhythm. No murmurs, rubs, or gallops. Distal pulses are 2+ and symmetric. PULMONARY: No evidence of respiratory distress. Lungs clear to auscultation bilaterally. No wheezing, rales or rhonchi. ABDOMINAL: Soft. Non-tender. Non-distended. No rebound or guarding. No organomegaly. Normoactive bowel sounds. MUSCULOSKELETAL Normal range of motion at all joints. No bony deformities or tenderness. No CVA tenderness. EXTREMITIES: No cyanosis. No clubbing. No edema. No calf tenderness. SKIN: + Right anterior upper chest wall, port-a-cath in place, now infected, red , hot, swollen, tender. dry. Normal capillary refill. No rashes. No jaundice. NEUROLOGICAL: Alert, awake, appropriate. Cranial nerves 2-12 intact. No deficits to light touch and temperature in face, upper extremities and lower extremities. No motor deficits in the in face, upper extremities and lower extremities. Normoreflexic in the upper and lower extremities. Normal speech. Toes are down- going bilaterally. Gait is normal without ataxia. PSYCHIATRIC: Cooperative. Good eye contact. Appropriate mood and affect. <Sue Wolff - Last Filed: 12/01/16 00:42> ED Treatment Course - LABORATORY CBC & Chemistry Diagram: 12/01/16 00:15 12/01/16 00:15 - ADDITIONAL ORDERS Additional order review: 12/01/16 00:15 RBC 2.14 L MCV 99.9 H MCHC 32.8 RDW 19.1 H MPV 9.5 D Neutrophils % Y Lymphocytes % Y <Sue Wolff - Last Filed: 12/01/16 00:42> - LABORATORY CBC & Chemistry Diagram: 12/01/16 00:15 12/01/16 00:15 <Alesha Guy - Last Filed: 12/01/16 01:19> Medical Decision Making - Medical Decision Making 12/01/16 00:50 Pt was diagnosed with multiple myeloma 10 years ago. SHe underwent chemo and radiation. Recently she had a portacath placed in the right anterior chest wall. It has not been working well and now appears infected. Bright red, hot, tender, swollen. pt had been taking cipro prescribed by her oncologist Javier, but despite this she spoked a fever and she has anemia recently. Pt is on neupogen to stimulate WBC count in her body and she recently received platelet transfusion for her low platelet count. Pt will be admitted today for fever and sepsis. She will have the portacath removed vs cultured under fluoroscopy when she is admitted. Pt is to be admitted to Hospitalist. 12/01/16 01:19 EKG: NSR; inferior flat flipped t waves <Alesha Guy - Last Filed: 12/01/16 01:19> *DC/Admit/Observation/Transfer - Attestations Scribe Attestion: 12/01/16 00:42 Documentation prepared by Sue Wolff, acting as medical claims analyst for Alesha Guy MD <Sue Wolff - Last Filed: 12/01/16 00:42> - Discharge Dispostion Admit: Yes <Alesha Guy - Last Filed: 12/01/16 01:19> Diagnosis at time of Disposition: Anemia, Infected blister of chest wall, Infection due to port-a-cath, Fever, Multiple myeloma - Referrals Referrals: Juventino Herrera MD [Primary Care Provider] -
[2016-12-01 00:23] LABS: MCH 32.8 pg (25.7-33.7); MCHC 32.8 g/dl (32.0-36.0); MEAN CELL VOLUME 99.9 fl (80-96); MEAN PLT VOLUME 9.5 fl (7.5-11.1); PLATELET COUNT 62 K/MM3 (134-434); RDW 19.1 % (11.6-15.6); WHITE BLOOD COUNT 3.5 K/mm3 (4.0-10.0)
[2016-12-01] MEDS ORDERED: VANCOMYCIN 1 GRAM (PRE-DOCKED) 250 ML IVPB ONE (00:25)
[2016-12-01 00:49] LABS: ANION GAP 11 (8-16); BILIRUBIN,TOTAL 0.4 mg/dL (0.2-1.0); CALCIUM 7.8 mg/dL (8.5-10.1); CO2 23 mmol/L (21-32); CREATININE 0.4 mg/dL (0.55-1.02); GLUCOSE,RANDOM 92 mg/dL (74-106); SGPT/ALT 22 U/L (12-78); TOT PROT 6.5 g/dl (6.4-8.2)
[2016-12-01 00:50] LABS: ALK PHOS 300 U/L (45-117)
[2016-12-01 00:58] LABS: SGOT/AST 43 U/L (15-37)
[2016-12-01 01:20] LABS: PLATELET ESTIMATE SLT DECREASED (NORMAL)
[2016-12-01 01:21] LABS: ANISOCYTOSIS 1+
--- NOTE | 2016-12-01 01:58 | HP ---
CHIEF COMPLAINT: Fever, Pain, Redness and Swelling to R- Chest Wall Port PCP: Dr. Herrera HISTORY OF PRESENT ILLNESS: This is a pleasant 61 y/o woman with a significant medical history of Multiple Myeloma (Chemo/Radiation), Hypothyroid. Who present to the ED sent in by her PMD for admission for R- Port Removal secondary to possible infection. Patient reports having recent sx for port placement. She reports having chemo 4 days ago , noting subjective fever at home 102-104. Patient reports pain, erythema, induration to r- port site, receiving Rocephin daily without improvement. Patient denies cough, dizziness, SOB, AP, N/V, constipation, dysuria. Patient denies sick contacts. ER course was notable for: (1) H/H 7.0/2.6 (2) Plts 62 (3) Chest Xray- image reviewed, no pleural effusion, no infiltrate Recent Travel: None See HPI PAST MEDICAL HISTORY: See HPI PAST SURGICAL HISTORY: Port a Cath to RCW Social History: Smoking: Former Alcohol: None Drugs: None Family History: Non-Contributory Allergies No Known Allergies Allergy (Verified 11/30/16 23:55) HOME MEDICATIONS: Home Medications Medication Instructions Recorded Levothyroxine [Synthroid -] 125 mcg PO DAILY 12/18/12 Allopurinol 300 mg PO DAILY 01/31/16 Carvedilol [Coreg] 3.125 mg PO BID 07/09/16 Lisinopril [Zestril] 2.5 mg PO DAILY 07/09/16 FENTANYL 12mcg PATCH 12 mcg TD Q72H 11/14/16 Hydrocodone/Acetaminophen [Vicodin 1 each PO QID PRN 12/01/16 5-300 mg Tablet] REVIEW OF SYSTEMSL CONSTITUTIONAL: fever Absent: chills, diaphoresis, generalized weakness, malaise, loss of appetite, weight change HEENT: Absent: rhinorrhea, nasal congestion, throat pain, throat swelling, difficulty swallowing, mouth swelling, ear pain, eye pain, visual changes CARDIOVASCULAR: Absent: chest pain, syncope, palpitations, irregular heart rate, lightheadedness , peripheral edema RESPIRATORY: Absent: cough, shortness of breath, dyspnea with exertion, orthopnea, wheezing, stridor, hemoptysis GASTROINTESTINAL: Absent: abdominal pain, abdominal distension, nausea, vomiting, diarrhea, constipation, melena, hematochezia GENITOURINARY: Absent: dysuria, frequency, urgency, hesitancy, hematuria, flank pain, genital pain MUSCULOSKELETAL: Absent: myalgia, arthralgia, joint swelling, back pain, neck pain SKIN: Erythema and warmth to RCW Absent: rash, itching, pallor HEMATOLOGIC/IMMUNOLOGIC: Absent: easy bleeding, easy bruising, lymphadenopathy, frequent infections ENDOCRINE: Absent: unexplained weight gain, unexplained weight loss, heat intolerance, cold intolerance NEUROLOGIC: Absent: headache, focal weakness or paresthesias, dizziness, unsteady gait, seizure, mental status changes, bladder or bowel incontinence PSYCHIATRIC: Absent: anxiety, depression, suicidal or homicidal ideation, hallucinations. PHYSICAL EXAMINATION Vital Signs - 24 hr 12/01/16 01:52 Pulse Rate [ 87 Left] Respiratory 16 Rate Blood Pressure 110/59 [Left Arm] O2 Sat by Pulse 98 Oximetry (%) GENERAL: Awake, alert, and fully oriented, in no acute distress. HEAD: Normal with no signs of trauma. EYES: Pupils equal, round and reactive to light, extraocular movements intact, sclera anicteric, conjunctiva clear. No lid lag. EARS, NOSE, THROAT: Ears normal, nares patent, oropharynx clear without exudates. Moist mucous membranes. NECK: Normal range of motion, supple without lymphadenopathy, JVD, or masses. LUNGS: Breath sounds equal, clear to auscultation bilaterally. No wheezes, and no crackles. No accessory muscle use. HEART: Regular rate and rhythm, normal S1 and S2 without murmur, rub or gallop. ABDOMEN: Soft, nontender, not distended, normoactive bowel sounds, no guarding, no rebound, no masses. No hepatomegaly or splenomegaly. MUSCULOSKELETAL: Normal range of motion at all joints. No bony deformities or tenderness. No CVA tenderness. UPPER EXTREMITIES: 2+ pulses, warm, well-perfused. No cyanosis. No clubbing. No peripheral edema. LOWER EXTREMITIES: 2+ pulses, warm, well-perfused. No calf tenderness. No peripheral edema. NEUROLOGICAL: Cranial nerves II-XII intact. Normal speech. gait not oberved PSYCHIATRIC: Cooperative. Good eye contact. Appropriate mood and affect. SKIN: +Gross erythematous, induration, warmth, tenderness/pain to palpation to R - chest wall port site noted. Warm, dry, normal turgor, no rashes. normal capillary refill. ASSESSMENT/PLAN: This is a pleasant 61 y/o woman with a PMHx of Multiple Myeloma (on chemo, radiation). Admitted for Fever, Cellulitis of RCW for further evaluation of their emergent condition. Plan: 1. ID: Cellulitis of Right Chest Wall// R- Port Catheter Infection// Fever - Likely secondary to infected Port - Blood Cultures-pending - Given Vancomycin, Erapenenem in ED - Continue Empiric ABX - Appreciate ID Consult - Monitor vitals - Appreciate IR Consult 2. Heme/Oncology: Multiple Myeloma//Anemia//Thrombocytopenia - On Chemo - Appreciate Oncology Consult - Hgb baseline 7.4-11 - Will transfuse if Hgb < 7.0 - Repeat CBC in am - Continue Fentanyl Patch 3. Cardiology: Hypertension - Monitor BP - Continue Coreg/Zestril with parameters 4. Endo: Hypothyroidism - Continue Levothyroxine - TSH in am 5. FEN - Tolerates PO Fluids - Replete lytes prn - Regular Diet 6. DVT Prophylaxis - SCD to R- leg - OOB - Hold AC 2/2 Anemia Dispo: Requires Inpatient Care Problem List - Problem (1) Fever Code(s): R50.9 - FEVER, UNSPECIFIED (2) Infection due to port-a-cath Code(s): T80.219A - UNSP INFECTION DUE TO CENTRAL VENOUS CATHETER, INIT ENCNTR Qualifiers: Encounter type: initial encounter Qualified Code(s): T80.219A - Unspecified infection due to central venous catheter, initial encounter (3) Infected blister of chest wall Code(s): S20.329A - BLISTER (NONTHERMAL) OF UNSP FRONT WALL OF THORAX, INIT L08.9 - LOCAL INFECTION OF THE SKIN AND SUBCUTANEOUS TISSUE, UNSP (4) Anemia Code(s): D64.9 - ANEMIA, UNSPECIFIED (5) Multiple myeloma Code(s): C90.00 - MULTIPLE MYELOMA NOT HAVING ACHIEVED REMISSION Qualifiers: Multiple myeloma remission status: unspecified (6) Antineoplastic chemotherapy induced anemia Code(s): D64.81 - ANEMIA DUE TO ANTINEOPLASTIC CHEMOTHERAPY (7) DVT prophylaxis Code(s): URS2918 - Visit type - Emergency Visit Emergency Visit: Yes ED Registration Date: 12/01/16 Care time: The patient presented to the Emergency Department on the above date and was hospitalized for further evaluation of their emergent condition. - New Patient This patient is new to me today: Yes Date on this admission: 12/01/16 - Critical Care Critical Care patient: No
[2016-12-01 02:21] VITALS: BMI 20.2
[2016-12-01] MEDS ORDERED: IMIPENEM/CILASTATIN SODIUM 250 MG in SODIUM CHLORIDE 100 ML IVPB SCH (03:00)
[2016-12-01] MEDS: LEVOTHYROXINE NA 125 MCG TABLET (FP) PO SCH (06:51)
[2016-12-01 08:16] LABS: BASOPHIL 0.2 % (0-2.0); EOSINOPHIL 0.6 % (0-4.5); MCH 33.7 pg (25.7-33.7); MCHC 34.1 g/dl (32.0-36.0); MEAN PLT VOLUME 8.7 fl (7.5-11.1); NEUTROPHILS 85.4 % (42.8-82.8); RDW 18.6 % (11.6-15.6); WHITE BLOOD COUNT 2.8 K/mm3 (4.0-10.0)
[2016-12-01 08:26] LABS: PLATELET COUNT 44 K/MM3 (134-434)
[2016-12-01 09:05] LABS: CALCIUM 7.6 mg/dL (8.5-10.1); COCKROFT - GAULT 128.707; CREATININE 0.4 mg/dL (0.55-1.02)
--- NOTE | 2016-12-01 09:29 | CONSULT ---
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: Peripheral Neuropathy Cardio/Vascular: Yes: Hyperlipdemia ...: No Heme/Onc: Yes: Anemia, Current Chemotherapy, Current Radiation Therapy, Thrombocytopenia Musculoskeletal: Yes: Chronic low back pain, Other (left foot fracture, back , shoulder, hip pain) Endocrine: Yes: Hypothyroidism - Past Surgical History Additional Surgical History: throidectomy for thyroid ca - Alcohol/Substance Use Hx Alcohol Use: No - Smoking History Smoking history: Former smoker Have you smoked in the past 12 months: No Aproximately how many cigarettes per day: 0 - Social History ADL: Independent History of Recent Travel: No Home Medications - Allergies Allergies/Adverse Reactions: Allergies Allergy/AdvReac Type Severity Reaction Status Date / Time No Known Allergies Allergy Verified 11/30/16 23:55 - Home Medications Home Medications: Ambulatory Orders Levothyroxine [Synthroid -] 125 mcg PO DAILY 12/18/12 Allopurinol 300 mg PO DAILY 01/31/16 Carvedilol [Coreg] 3.125 mg PO BID 07/09/16 Lisinopril [Zestril] 2.5 mg PO DAILY 07/09/16 FENTANYL 12mcg PATCH 12 mcg TD Q72H 11/14/16 Hydrocodone/Acetaminophen [Vicodin 5-300 mg Tablet] 1 each PO QID PRN 12/01/16 Family Disease History - Family Disease History Family Disease History: CA: Brother (thyroid ca) Review of Systems - Review of Systems Constitutional: reports: Fever, Unintentional Wgt. Loss, Weakness Eyes: denies: Double Vision, Recent Change in Vision HENT: denies: Difficult Swallowing, Epistaxis Neck: reports: Tenderness. denies: Decreased ROM, Pain on Movement Cardiovascular: reports: Other (right anterior chest wall discomfort secondary to induration , infiltration, of skin). denies: Chest Pain, Shortness of Breath Respiratory: reports: SOB on Exertion Gastrointestinal: reports: Bloating, Other (anorexia). denies: Diarrhea, Nausea , Vomiting Genitourinary: reports: No Symptoms. denies: Dysuria, Flank Pain, Frequency Breasts: reports: No Symptoms Reported, Skin Changes Musculoskeletal: reports: Extremity Pain, Muscle Pain, Other (hips, shoulders, back foot) Integumentary: reports: Erythema, Other (port site- erythema, indurationchest wall area 10 x 6) Neurological: reports: Numbness Endocrine: reports: No Symptoms Hematology/Lymphatic: reports: Easily Bruised. denies: Swollen Glands Psychiatric: reports: No Symptoms Physical Exam Vital Signs: Vital Signs Temperature 98.4 F 12/01/16 07:45 Pulse Rate 86 12/01/16 07:45 Respiratory Rate 18 12/01/16 07:45 Blood Pressure 98/55 12/01/16 07:45 O2 Sat by Pulse Oximetry (%) 97 12/01/16 08:49 Constitutional: Yes: Moderate Distress Eyes: Yes: EOM Intact, PERRL. No: Diplopia, Ptosis HENT: Yes: Atraumatic, Normocephalic. No: Epistaxis, Hoarseness, Pharyngeal Erythema, Tonsillar Exudate Neck: Yes: Trachea Midline, Other (s/p thyrodectomy). No: Lymphadenopathy Cardiovascular: Yes: Regular Rate and Rhythm Respiratory: Yes: Diminished, Rhonchi, Other (scattered rhonchi) Gastrointestinal: Yes: Normal Bowel Sounds, Soft, Distention. No: Hepatomegaly , Palpable Mass, Splenomegaly ...Rectal Exam: No: Other Renal/: No: Anuria Breast(s): Yes: WNL Musculoskeletal: Yes: Back Pain, Muscle Pain Extremities: Yes: Other (right foot metatarsal met). No: Calf Tenderness Edema: No Integumentary: Yes: Erythema, Other (right anterior chest wall erythema, edema , induration,) Wound/Incision: Yes: Reddened (port site), Other Neurological: Yes: Paresthesia ...Motor Strength: WNL Psychiatric: Yes: WNL Labs: CBC, BMP 12/01/16 07:20 12/01/16 07:20 Problem List - Problems (1) Anemia Assessment/Plan: Secondary to chemotherapy and myeloma Plan- transfusion Code(s): D64.9 - ANEMIA, UNSPECIFIED (2) Fever Assessment/Plan: On chemotherapy, recent cytopenias requiring Neulasta and neupogen .Temp to 100.5 max For culturing and antibiotics per I.D. Code(s): R50.9 - FEVER, UNSPECIFIED (3) Infection due to port-a-cath Assessment/Plan: Induration, erythema port site with area of erythema 10 x 6 cm ?? hematoma, infection, extravasation all possible. At current time , port will not be used and may need to be removed. Will get I.R. to re-assess. Code(s): T80.219A - UNSP INFECTION DUE TO CENTRAL VENOUS CATHETER, INIT ENCNTR (4) Multiple myeloma Assessment/Plan: Under treatment for greater than 10 years. S/P stem cell transplant with progression. Multiple chemotherapy regimens, immunotherapy regimens, and multiple sites of RT in past. Recently--November 15,,,,, , --continuous infusion of cytoxan, cis-[place], etoposide, and 4 days of decadron 40 mg daily . Has received Neulasta on 11/20 and 4 days of neupogen past week. Code(s): C90.00 - MULTIPLE MYELOMA NOT HAVING ACHIEVED REMISSION Qualifiers: (5) Fracture of 3rd metatarsal Code(s): S92.333A - DISP FX OF THIRD METATARSAL BONE, UNSP FOOT, INIT Qualifiers: Encounter type: initial encounter Fracture type: closed Fracture alignment: nondisplaced Laterality: left Qualified Code(s): S92.335A - Nondisplaced fracture of third metatarsal bone, left foot, initial encounter for closed fracture (6) Neutropenia Assessment/Plan: Secondary to chemotherapy- on neupogen and s/p- neulasta Code(s): D70.9 - NEUTROPENIA, UNSPECIFIED Qualifiers: Neutropenia type: secondary to cancer chemotherapy Qualified Code(s) : D70.1 - Agranulocytosis secondary to cancer chemotherapy (7) Thrombocytopenia Assessment/Plan: Secondary to chemotherapy . Transfusion prn Code(s): D69.6 - THROMBOCYTOPENIA, UNSPECIFIED Assessment/Plan Since DCEP chemotherapy, anorexia, poor p.o. intake, hypotensive requiring saline and transfusion. Has also had problems with hypocalcemia, hypokalemia, hypomagnesemia during this time frame. Need to monitor chems and lytes in addition to CBC.
--- NOTE | 2016-12-01 10:04 | PN ---
Progress Note (short form) - Note Progress Note: ID consult dictated imp/reccd 61 year old female with MM for over 10 years, s/p stem cell 2007, recent port placement 11/15, s/p chemothrapy for 4 days discharged on 11/19- port deaccessed when she left, she was given cipro on discharge after port was placed there was difficulty accessing medial port, she had serous drainage throught the admission and erythema- no fevers she has had erythema and a burning intense pain since then at the port site last nigh she felt unwell, took her temp and had persistent lowgrade fever of 100.2 to 100.5 no nausea or vomiting no respiratory symptoms she has had chronic intermittent diarrhea for years that is unchanged port infection versus extravasaton at port site given leukopenia and low grade fever agree with cultues no history of resistant organisms vanco/zosyn whould be adequate surgical evalustion of port, ?port removal MM- progressing s/p chemo history hypothyroidism d/w Dr Herrera
[2016-12-01] MEDS: CARVEDILOL 3.125 MG TABLET (FP) PO SCH ×3 (10:06→22:00)
[2016-12-01] MEDS: ALLOPURINOL 300 MG TABLET (FP) PO SCH (10:13)
[2016-12-01] MEDS: PIPERACILLIN/TAZOB 3.375 GM/50 ML PRE-DOCKED IVPB SCH ×2 (10:29→17:55)
[2016-12-01] MEDS: LISINOPRIL 5 MG TABLET (FP) PO SCH (10:29)
[2016-12-01] MEDS: VANCOMYCIN 750 MG in DEXTROSE 5%-WATER - 250 ML IVPB SCH (11:46)
[2016-12-01] MEDS: MAGNESIUM OXIDE 400 MG TABLET (FP) PO SCH ×2 (13:29→22:34)
--- NOTE | 2016-12-01 13:45 | CONS ---
DATE OF CONSULTATION: 12/01/2016 This is a 61-year-old woman with a history of multiple myeloma. She has been diagnosed more than 10 years ago. She is status post stem cell transplant in 2007. She has progressive disease with involvement of multiple bones. She recently had a fracture of her left foot and is receiving some radiation to her foot. She has had multiple bouts of radiation to various bones for bony pain. As well, she has been on multiple courses of treatment including immunotherapy and is failing. She was recently admitted on November 15. She had a port placed by Interventional Radiology. She was started on 4 days of chemotherapy including Decadron, Cytoxan, LAWN TECHNICIAN-16. She received cisplatin as well. During the entire time, there was difficulty with the port. The medial port was difficult to be accessed. She had serous drainage from that port. She ended up using a sort of compression dressing throughout the chemotherapy course. At discharge, she was placed on Cipro for localized infection. After discharge, she was treated with Neupogen. As well, she had, on , platelets transfusion. Yesterday evening, she did not feel well, she felt warm. She had no rigors or chills. She took her temperature, it was 100.2. She took it again later, it was 100.6, and she was advised to come to the emergency room. She was evaluated in the emergency room and started on vancomycin and imipenem. I am asked to see her for further recommendations. She describes that the erythema is persistent but unchanged since her discharge home. She has been taking Cipro twice a day. She reports severe burning pain in the area that is also persistent. She denies any nausea, vomiting, abdominal pain, or otherwise chest pain. She has chronic bone pain, and she has intermittent diarrhea, which she states she has had for years and is unchanged. Her past medical history is notable for relapsed multiple myeloma. She has a history of stem cell transplant. She has a history of thyroidectomy for thyroid cancer many years ago and is on thyroid replacement. She has a history of peripheral neuropathy, which she reports is mild. She has no known drug allergies. Her medications at home include Synthroid, allopurinol. She takes acyclovir 400 mg daily, and she was recently started on the Synthroid 500 b.i.d. She uses a fentanyl patch and takes some p.r.n. Vicodin. She is on Coreg and lisinopril as well. SOCIAL HISTORY: She lives alone. 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 Her review of systems is as per HPI. There is no recent travel. She has chronic pain, mainly bony, but it has been tolerable until this episode happened. She has no headache. She has no trouble swallowing. There is no nausea vomiting. She has no abdominal pain. She has no dysuria. PHYSICAL EXAMINATION: Vital Signs: Her temperature is 98.4, pulse of 86, blood pressure is 98/55, respiratory rate is 18. She weighs 120 pounds. HEENT: Normocephalic. Her eyes are anicteric. She has no thrush. Neck: Supple. Chest: Her right chest, she has Steri-Strips at the site of the port. There is surrounding erythema about 8 x 10 inches. The area is very tender to touch. There is no fluctuance. It is warm. Heart: Regular rate and rhythm. Lungs: Clear to auscultation. Abdomen: Soft, nontender. Extremities: Without edema. She has, on her left foot, markings for radiation. Her white count is 2.8, hemoglobin is 6.6, platelets are 44,000. INR is 1.1. BUN 8, creatinine 0.4. Blood cultures are pending. She had stool studies done on her last admission that were negative. In summary, this is a 61-year-old woman with progressing multiple myeloma presenting with low-grade fever, erythema, and discomfort at the site of her port. Differential diagnosis would include port infection versus extravasation of the port site. Given her leukopenia and low-grade fever, broad-spectrum antibiotics are certainly reasonable at this time. She has no history of resistant organisms. Vancomycin/Zosyn should be adequate. As well, should have a surgical evaluation of the port to see if we need to consider port removal. The patient is aware of this plan and is agreeable to further evaluation. Number 2, multiple myeloma, status post chemotherapy. Number 3, history of hypothyroidism. Case was discussed at length with Dr. Herrera. MATTHEW MARTINI M.D. YOUSIF/[id number]
--- NOTE | 2016-12-01 15:32 | EKG ---
Test Reason : Blood Pressure : / mmHG Vent. Rate : 089 BPM Atrial Rate : 089 BPM P-R Int : 112 ms QRS Dur : 076 ms QT Int : 380 ms P-R-T Axes : 004 -19 -18 degrees QTc Int : 462 ms NORMAL SINUS RHYTHM VOLTAGE CRITERIA FOR LEFT VENTRICULAR HYPERTROPHY NONSPECIFIC ST AND T WAVE ABNORMALITY ABNORMAL ECG WHEN COMPARED WITH ECG OF 27-JUN-2008 12:41, T WAVE INVERSION NOW EVIDENT IN INFERIOR LEADS NONSPECIFIC T WAVE ABNORMALITY NOW EVIDENT IN LATERAL LEADS CLINICAL CORRELATION IS RECOMMENDED Confirmed by AUTUMN SWEENEY, MONTEZ ([id number]) on 12/01/2016 3:32:50 PM Referred By: Confirmed By:MONTEZ LEYVA MD
[2016-12-01] MEDS ORDERED: FUROSEMIDE 40 MG/4 ML INJECTABLE VIAL IVPUSH ONE (16:57)
[2016-12-01] MEDS: HYDROCODONE PO PRN ×2 (17:52→22:34)
[2016-12-01] MEDS: IBUPROFEN PO PRN ×2 (17:52→22:34)
[2016-12-01] MEDS ORDERED: FUROSEMIDE 40 MG TABLET (FP) PO ONE (18:02)
[2016-12-01] MEDS: FUROSEMIDE 20 MG TABLET (FP) PO SCH (18:23)
[2016-12-02] MEDS ORDERED: PT OWN MED DRAWER 7, Y5N ONE ×3 (00:39→23:11)
[2016-12-02] MEDS: VANCOMYCIN 750 MG in DEXTROSE 5%-WATER - 250 ML IVPB SCH ×3 (01:07→23:16)
[2016-12-02] MEDS: PIPERACILLIN/TAZOB 3.375 GM/50 ML PRE-DOCKED IVPB SCH ×3 (02:32→18:33)
[2016-12-02] MEDS: IBUPROFEN PO PRN ×5 (02:50→19:54)
[2016-12-02] MEDS: HYDROCODONE PO PRN ×5 (02:50→19:54)
[2016-12-02] MEDS: LEVOTHYROXINE NA 125 MCG TABLET (FP) PO SCH (06:45)
[2016-12-02 07:57] LABS: MCH 32.4 pg (25.7-33.7); MCHC 34.4 g/dl (32.0-36.0); MEAN CELL VOLUME 94.2 fl (80-96); MEAN PLT VOLUME 8.1 fl (7.5-11.1); RDW 19.1 % (11.6-15.6); WHITE BLOOD COUNT 3.2 K/mm3 (4.0-10.0)
[2016-12-02 08:36] LABS: PLATELET COUNT 32 K/MM3 (134-434)
[2016-12-02 08:38] LABS: ALBUMIN 2.8 g/dl (3.4-5.0); ALK PHOS 285 U/L (45-117); ANION GAP 8 (8-16); BILIRUBIN,TOTAL 1.8 mg/dL (0.2-1.0); CALCIUM 7.3 mg/dL (8.5-10.1); CO2 27 mmol/L (21-32); COCKROFT - GAULT 102.9605; CREATININE 0.5 mg/dL (0.55-1.02); GLUCOSE,RANDOM 82 mg/dL (74-106); MAGNESIUM 2.1 mg/dL (1.8-2.4); SGOT/AST 26 U/L (15-37); SGPT/ALT 15 U/L (12-78); TOT PROT 5.7 g/dl (6.4-8.2)
--- NOTE | 2016-12-02 09:25 | CONSULT ---
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 Cardio/Vascular: Yes: Hyperlipdemia ...: No Musculoskeletal: Yes: Chronic low back pain, Other (left foot fracture, back , shoulder, hip pain) Endocrine: Yes: Hypothyroidism - Past Surgical History Additional Surgical History: throidectomy for thyroid ca - Alcohol/Substance Use Hx Alcohol Use: No - Smoking History Smoking history: Former smoker Have you smoked in the past 12 months: No Aproximately how many cigarettes per day: 0 - Social History ADL: Independent History of Recent Travel: No Home Medications - Allergies Allergies/Adverse Reactions: Allergies Allergy/AdvReac Type Severity Reaction Status Date / Time No Known Allergies Allergy Verified 11/30/16 23:55 - Home Medications Home Medications: Ambulatory Orders Levothyroxine [Synthroid -] 125 mcg PO DAILY 12/18/12 Allopurinol 300 mg PO DAILY 01/31/16 Carvedilol [Coreg] 3.125 mg PO BID 07/09/16 Lisinopril [Zestril] 2.5 mg PO DAILY 07/09/16 FENTANYL 12mcg PATCH 12 mcg TD Q72H 11/14/16 Hydrocodone/Ibuprofen [Hydrocodone-Ibuprofen 7.5-200] QID PRN 12/01/16 Family Disease History - Family Disease History Family Disease History: CA: Brother (thyroid ca) Review of Systems - Review of Systems Constitutional: denies: Chills, Fever HENT: denies: No Symptoms Neck: denies: No Symptoms Cardiovascular: denies: Chest Pain Respiratory: denies: Cough Gastrointestinal: denies: Abdominal Pain Integumentary: reports: Erythema, Other (+ tendernees at port site) Neurological: denies: Change in LOC Pain Intensity: 5 Physical Exam Vital Signs: Vital Signs Temperature 98.5 F 12/02/16 06:00 Pulse Rate 79 12/02/16 06:00 Respiratory Rate 20 12/02/16 06:00 Blood Pressure 129/71 12/02/16 06:00 O2 Sat by Pulse Oximetry (%) 97 12/01/16 21:00 Constitutional: Yes: Well Nourished, Calm HENT: Yes: WNL Neck: Yes: Supple Cardiovascular: Yes: Regular Rate and Rhythm Respiratory: Yes: Regular Gastrointestinal: Yes: Soft Integumentary: Yes: Other (+ redness and tenderness at port site on right chest wall Redness extends for approximately 5cm x 7cm No drainage) Labs: CBC, BMP 12/02/16 05:38 12/02/16 05:38 Problem List - Problems (1) Infection due to port-a-cath Code(s): T80.219A - UNSP INFECTION DUE TO CENTRAL VENOUS CATHETER, INIT ENCNTR Qualifiers: Encounter type: initial encounter Qualified Code(s): T80.219A - Unspecified infection due to central venous catheter, initial encounter (2) Multiple myeloma Code(s): C90.00 - MULTIPLE MYELOMA NOT HAVING ACHIEVED REMISSION Qualifiers: Multiple myeloma remission status: unspecified Assessment/Plan 61 female with redness and tenderness at port site placed by IR Possible infection vs chemo burn To be evaluated by Dr Herrera and Dr Willis for possible removal
[2016-12-02] MEDS: fentaNYL 12mcg/hr PATCH.TD72 TD SCH (09:46)
[2016-12-02] MEDS: ALLOPURINOL 300 MG TABLET (FP) PO SCH (09:46)
[2016-12-02] MEDS: LISINOPRIL 5 MG TABLET (FP) PO SCH (09:46)
[2016-12-02] MEDS: MAGNESIUM OXIDE 400 MG TABLET (FP) PO SCH ×2 (09:47→21:25)
[2016-12-02] MEDS: CARVEDILOL 3.125 MG TABLET (FP) PO SCH ×2 (09:47→21:25)
[2016-12-02] MEDS: FUROSEMIDE 20 MG TABLET (FP) PO SCH (09:49)
[2016-12-02] MEDS: FENTANYL PATCH WASTE MC PRN (09:50)
[2016-12-02 10:38] LABS: ANISOCYTOSIS 1+; PLATELET ESTIMATE MARKEDLY DECREASED (NORMAL)
--- NOTE | 2016-12-02 12:33 | PN ---
Progress Note, Physician Chief Complaint: ID Vancomycin Zosyn No chills Fever resolved - Current Medication List Current Medications: Active Medications Allopurinol (Zyloprim -) 300 mg PO DAILY [facility] Last Admin: 12/02/16 09:46 Dose: 300 mg Carvedilol (Coreg -) 3.125 mg PO BID [facility] Last Admin: 12/02/16 09:47 Dose: 3.125 mg Fentanyl (Duragesic 12mcg Patch -) 1 patch TD Q72H [facility] Stop: 12/08/16 03:00 Last Admin: 12/02/16 09:46 Dose: 1 patch Furosemide (Lasix -) 20 mg PO DAILY [facility] Last Admin: 12/02/16 09:49 Dose: Not Given Hydrocodone Bitartrate/Ibuprofen (Vicoprofen 7.5/200 Mg [Nf Medication]) 1 tab PO Q4H PRN Last Admin: 12/02/16 11:20 Dose: 1 tab Vancomycin HCl 750 mg/ (Dextrose) 250 mls @ 250 mls/hr IVPB Q12H [facility] PRN Reason: Protocol Last Admin: 12/02/16 01:07 Dose: 250 mls/hr Levothyroxine Sodium (Synthroid -) 125 mcg PO DAILY@0700 [facility] Last Admin: 12/02/16 06:45 Dose: 125 mcg Lisinopril (Prinivil) 2.5 mg PO DAILY [facility] Last Admin: 12/02/16 09:46 Dose: 2.5 mg Magnesium Oxide (Mag-Ox -) 400 mg PO BID [facility] Last Admin: 12/02/16 09:47 Dose: 400 mg Miscellaneous (Duragesic Patch Waste) 1 each MC PRN PRN PRN Reason: PAIN Last Admin: 12/02/16 09:50 Dose: 1 each Piperacillin Sod/Tazobactam Sod (Zosyn 3.375gm Ivpb (Pre-Docked)) 3.375 gm IVPB Q8H-IV TANIYA PRN Reason: Protocol Last Admin: 12/02/16 09:47 Dose: 3.375 gm - Objective Vital Signs: Vital Signs Temperature 97.6 F 12/02/16 10:00 Pulse Rate 93 H 12/02/16 10:00 Respiratory Rate 20 12/02/16 10:00 Blood Pressure 138/64 12/02/16 10:00 O2 Sat by Pulse Oximetry (%) 97 12/01/16 21:00 Constitutional: Yes: No Distress HENT: No: Thrush Cardiovascular: Yes: Regular Rate and Rhythm, S1, S2 Respiratory: Yes: WNL, Regular, CTA Bilaterally Gastrointestinal: Yes: WNL, Normal Bowel Sounds, Soft. No: Palpable Mass Extremities: No: Cold, Cool, Cyanosis Integumentary: Yes: Other (Chest port indurated erythema very tender) Labs: CBC, BMP 12/02/16 05:38 12/02/16 05:38 Assessment/Plan Microbiology 12/01/16 00:30 Blood - Peripheral Venous Blood Culture - Preliminary NO GROWTH OBTAINED AFTER 24 HOURS, INCUBATION TO CONTINUE FOR 4 DAYS. 12/01/16 00:15 Blood - Peripheral Venous Blood Culture - Preliminary NO GROWTH OBTAINED AFTER 24 HOURS, INCUBATION TO CONTINUE FOR 4 DAYS. Laboratory Tests 12/02/16 12/02/16 05:38 05:38 WBC 3.2 L Hgb 9.0 L D Hct 26.3 L D Plt Count 32 L* D BUN 9 Creatinine 0.5 L D Assessment Clinically picture consistent with port infection Plan Port should be removed Continue antibiotic as ordered Culture port for c/s fungus and AFB upon removal Aubrey SWEENEY
--- NOTE | 2016-12-02 16:50 | PN ---
Physical Exam: SUBJECTIVE: Patient seen and examined at bedside. Significant amount of pain at port site. Lengthy discussion about pain management. Patient wants to stay with vicoprofen and low dose fentanyl patch. Does not want IV meds for breakthrough. Does not want anti-anxiolytics. OBJECTIVE: Vital Signs Period Temp Pulse Resp BP Sys/Menendez Pulse Ox Last 24 Hr 97.6 F-98.5 F 79-93 18-20 107-138/64-71 97 GENERAL: The patient is awake, alert, and fully oriented, in moderate stress secondary to pain HEAD: Normal with no signs of trauma. EYES: PERRL, extraocular movements intact, sclera anicteric, conjunctiva clear. No ptosis. LUNGS: Breath sounds equal, clear to auscultation bilaterally, no wheezes, no crackles, no accessory muscle use. Upper left chest area of erythema, induration , severe inflammation surrounding mediport 10cm x 6cm; exquisitely tender HEART: Regular rate and rhythm, S1, S2 without murmur, rub or gallop. ABDOMEN: Soft, nontender, nondistended, normoactive bowel sounds, no guarding, no rebound EXTREMITIES: 2+ pulses, warm, well-perfused, no edema NEUROLOGICAL: Cranial nerves II through XII grossly intact. Normal speech, gait not observed. Laboratory Results - last 24 hr 12/01/16 12/02/16 12/02/16 09:17 05:38 05:38 WBC 3.2 L RBC 2.79 L D Hgb 9.0 L D Hct 26.3 L D MCV 94.2 MCHC 34.4 RDW 19.1 H Plt Count 32 L* D MPV 8.1 Neutrophils % 67.0 D Lymphocytes % 10.0 D Monocytes % 6.0 Eosinophils % 2.0 D Basophils % 0.0 Band Neutrophils 15.0 H D Differential Comment Manual diff done Platelet Estimate Markedly decreased Anisocytosis 1+ Sodium 142 Potassium 4.0 Chloride 107 Carbon Dioxide 27 Anion Gap 8 BUN 9 Creatinine 0.5 L D Creat Clearance w eGFR > 60 Random Glucose 82 Calcium 7.3 L Magnesium 2.1 D Total Bilirubin 1.8 H D AST 26 D ALT 15 D Alkaline Phosphatase 285 H Total Protein 5.7 L Albumin 2.8 L Blood Type A NEGATIVE Antibody Screen Negative Crossmatch See Detail CBCD WBC 3.2 K/mm3 (4.0-10.0) L 12/02/16 05:38 RBC 2.79 M/mm3 (3.60-5.2) L D 12/02/16 05:38 Hgb 9.0 GM/dL (10.7-15.3) L D 12/02/16 05:38 Hct 26.3 % (32.4-45.2) L D 12/02/16 05:38 MCV 94.2 fl (80-96) 12/02/16 05:38 MCHC 34.4 g/dl (32.0-36.0) 12/02/16 05:38 RDW 19.1 % (11.6-15.6) H 12/02/16 05:38 Plt Count 32 K/MM3 (134-434) L* D 12/02/16 05:38 MPV 8.1 fl (7.5-11.1) 12/02/16 05:38 Current Medications Generic Name Dose Route Start Last Admin Trade Name Freq PRN Reason Stop Dose Admin Acyclovir 400 mg 12/02/16 17:30 Zovirax - PO DAILY TANIYA Allopurinol 300 mg 12/01/16 10:00 12/02/16 09:46 Zyloprim - PO 300 mg DAILY TANIYA Administration Carvedilol 3.125 mg 12/01/16 10:00 12/02/16 09:47 Coreg - PO 3.125 mg BID TANIYA Administration Enoxaparin Sodium 40 mg 12/03/16 10:00 Lovenox - SQ DAILY TANIYA Fentanyl 1 patch 12/02/16 10:00 12/02/16 09:46 Duragesic 12mcg Patch - TD 12/08/16 03:00 1 patch Q72H TANIYA Administration Hydrocodone Bitartrate/Ibuprofen 1 tab 12/01/16 13:04 12/02/16 15:38 Vicoprofen 7.5/200 Mg [Nf Medication] PO 1 tab Q4H PRN Administration Vancomycin HCl 750 mg/ 250 mls @ 250 mls/hr 12/01/16 11:00 12/02/16 12:29 Dextrose IVPB 250 mls/hr Q12H TANIYA Administration Protocol Sodium Chloride 1,000 mls @ 50 mls/hr 12/02/16 17:15 Normal Saline - IV 12/03/16 17:14 ASDIR TANIYA Levothyroxine Sodium 125 mcg 12/01/16 07:00 12/02/16 06:45 Synthroid - PO 125 mcg DAILY@0700 TANIYA Administration Lisinopril 2.5 mg 12/01/16 10:00 12/02/16 09:46 Prinivil PO 2.5 mg DAILY TANIYA Administration Magnesium Oxide 400 mg 12/01/16 10:30 12/02/16 09:47 Mag-Ox - PO 400 mg BID TANIYA Administration Miscellaneous 1 each 12/01/16 02:59 12/02/16 09:50 Duragesic Patch Waste MC 1 each PRN PRN Administration PAIN Piperacillin Sod/Tazobactam Sod 3.375 gm 12/01/16 10:30 12/02/16 09:47 Zosyn 3.375gm Ivpb (Pre-Docked) IVPB 3.375 gm Q8H-IV TANIYA Administration Protocol ASSESSMENT/PLAN 61 year-old woman with a significant PMH of multiple myeloma x 10 years. Admitted for infected mediport. Infection due to port-a-cath --area is severely inflamed and painful, skin at high risk for necrosis; likely combination of infection and extravasation of chemotherapeutic drugs --Dr. Willis to assess today for port removal but platelets down to 38k; discussed with Drs. Herrera and La; since no bleeding issues at moment, hold platelet transfusion, possible CT chest w/contrast later today --per ID continue Vanc (day #2) and Zosyn (day #2); continue home prophylactic acyclovir Multiple myeloma Thrombocytopenia Anemia --multiple chemotherapy, immunotherapy, and multiple sites of RT in past --pathologic fracture of 3rd metatarsal --from 11/15-11/19, received continuous infusion of of cytoxan, cis-[place], etoposide, and 4 days of decadron PO daily --12/01 transfused 2 units PRBC for Hgb 6.6 with good response -->9 --platelets 38k, no transfusion for now Hypothyroidism --continue levothyroxine Pain --vicoprofen q4h PRN --fentanyl 12mcg q72h F/E/N Fluids: NS @ 50mL/hr Electrolytes: replete as indicated Nutrition: regular diet DVT prophylaxis: lovenox, oob, ambulation Dispo: continues to require inpatient care. Full Code. Visit type - Emergency Visit Emergency Visit: Yes ED Registration Date: 12/01/16 Care time: The patient presented to the Emergency Department on the above date and was hospitalized for further evaluation of their emergent condition. - New Patient This patient is new to me today: Yes Date on this admission: 12/02/16 - Critical Care Critical Care patient: No
[2016-12-02] MEDS ORDERED: SODIUM CHLORIDE 1,000 ML IV SCH (17:15)
[2016-12-02] MEDS: ACYCLOVIR 400 MG TABLET PO SCH (17:37)
--- NOTE | 2016-12-02 17:46 | PN ---
Progress Note (short form) - Note Progress Note: Patient seen and examined burning ,and pruritus at the port site Last Vital Signs Temp Pulse Resp BP Pulse Ox 97.9 F 85 20 138/64 97 12/02/16 14:00 12/02/16 14:00 12/02/16 14:00 12/02/16 10:00 12/01/16 21:00 Cor: RSR, No murmurs, No gallops Lungs: Clear to P&A Chest --erythema at port site, induration Abd: Soft, Normal bowel sounds, No organomegaly Ext:No significant edema Abnormal Lab Results 12/01/16 12/02/16 12/02/16 09:17 05:38 05:38 WBC 3.2 L RBC 2.79 L D Hgb 9.0 L D Hct 26.3 L D RDW 19.1 H Plt Count 32 L* D Band Neutrophils 15.0 H D Creatinine 0.5 L D Calcium 7.3 L Total Bilirubin 1.8 H D Alkaline Phosphatase 285 H Total Protein 5.7 L Albumin 2.8 L Crossmatch See Detail Home Medication List Medication Instructions Recorded Confirmed Type Levothyroxine [Synthroid -] 125 mcg PO DAILY 12/18/12 12/01/16 History Allopurinol 300 mg PO DAILY 01/31/16 12/01/16 History Carvedilol [Coreg] 3.125 mg PO BID 07/09/16 12/01/16 History Lisinopril [Zestril] 2.5 mg PO DAILY 07/09/16 12/01/16 History FENTANYL 12mcg PATCH 12 mcg TD Q72H 11/14/16 12/01/16 History Hydrocodone/Ibuprofen QID PRN 12/01/16 History [Hydrocodone-Ibuprofen 7.5-200] Active Medications Generic Name Dose Route Start Last Admin Trade Name Freq PRN Reason Stop Dose Admin Acyclovir 400 mg 12/02/16 17:30 12/02/16 17:37 Zovirax - PO Not Given DAILY TANIYA Allopurinol 300 mg 12/01/16 10:00 12/02/16 09:46 Zyloprim - PO 300 mg DAILY TANIYA Administration Carvedilol 3.125 mg 12/01/16 10:00 12/02/16 09:47 Coreg - PO 3.125 mg BID TANIYA Administration Enoxaparin Sodium 40 mg 12/03/16 10:00 Lovenox - SQ DAILY [facility] Escitalopram Oxalate 20 mg 12/02/16 17:45 Lexapro - PO DAILY TANIYA Fentanyl 1 patch 12/02/16 10:00 12/02/16 09:46 Duragesic 12mcg Patch - TD 12/08/16 03:00 1 patch Q72H TANIYA Administration Hydrocodone Bitartrate/Ibuprofen 1 tab 12/01/16 13:04 12/02/16 15:38 Vicoprofen 7.5/200 Mg [Nf Medication] PO 1 tab Q4H PRN Administration Vancomycin HCl 750 mg/ 250 mls @ 250 mls/hr 12/01/16 11:00 12/02/16 12:29 Dextrose IVPB 250 mls/hr Q12H TANIYA Administration Protocol Sodium Chloride 1,000 mls @ 50 mls/hr 12/02/16 17:15 Normal Saline - IV 12/03/16 17:14 ASDIR TANIYA Levothyroxine Sodium 125 mcg 12/01/16 07:00 12/02/16 06:45 Synthroid - PO 125 mcg DAILY@0700 TANIYA Administration Lisinopril 2.5 mg 12/01/16 10:00 12/02/16 09:46 Prinivil PO 2.5 mg DAILY TANIYA Administration Magnesium Oxide 400 mg 12/01/16 10:30 12/02/16 09:47 Mag-Ox - PO 400 mg BID TANIYA Administration Miscellaneous 1 each 12/01/16 02:59 12/02/16 09:50 Duragesic Patch Waste MC 1 each PRN PRN Administration PAIN Piperacillin Sod/Tazobactam Sod 3.375 gm 12/01/16 10:30 12/02/16 09:47 Zosyn 3.375gm Ivpb (Pre-Docked) IVPB 3.375 gm Q8H-IV TANIYA Administration Protocol A/P 61 y/o patient with myeloma, C1 D13 DCEP s/p neulasta/neupogen WBC improving Platelets in 30,000s will transfuse monodonor platelets discussed with Dr. Burgos, Dr. Ansari will check CT chest -- to r/o collections on antibiotics, pain control
[2016-12-02] MEDS ORDERED: ESCITALOPRAM OXALATE 10 MG TABLET (FP) ONE (18:23)
[2016-12-02] MEDS: ESCITALOPRAM OXALATE 20 MG TABLET (FP) PO SCH (18:35)
[2016-12-03] MEDS: IBUPROFEN PO PRN ×3 (00:13→19:01)
[2016-12-03] MEDS: HYDROCODONE PO PRN ×3 (00:13→19:01)
[2016-12-03] MEDS: PIPERACILLIN/TAZOB 3.375 GM/50 ML PRE-DOCKED IVPB SCH ×3 (02:05→18:14)
[2016-12-03] MEDS: LEVOTHYROXINE NA 125 MCG TABLET (FP) PO SCH (06:19)
[2016-12-03 07:59] LABS: MCH 32.6 pg (25.7-33.7); MCHC 34.7 g/dl (32.0-36.0); MEAN PLT VOLUME 7.9 fl (7.5-11.1); PLATELET COUNT 108 K/MM3 (134-434); RDW 18.8 % (11.6-15.6); WHITE BLOOD COUNT 4.7 K/mm3 (4.0-10.0)
[2016-12-03 08:14] LABS: ALBUMIN 3.1 g/dl (3.4-5.0); ANION GAP 8 (8-16); CALCIUM 7.7 mg/dL (8.5-10.1); CO2 26 mmol/L (21-32); COCKROFT - GAULT 102.9605; CREATININE 0.5 mg/dL (0.55-1.02); GLUCOSE,RANDOM 90 mg/dL (74-106); MAGNESIUM 2.2 mg/dL (1.8-2.4); SGOT/AST 30 U/L (15-37); SGPT/ALT 18 U/L (12-78)
[2016-12-03 08:16] LABS: ALK PHOS 287 U/L (45-117); BILIRUBIN,TOTAL 0.6 mg/dL (0.2-1.0)
[2016-12-03 08:27] LABS: INR 1.12 (0.82-1.09); PROTHROMBIN TIME (PATIENT) 12.4 SEC (9.98-11.88)
[2016-12-03 08:30] LABS: ACTIVATED PTT 28.1 SECONDS (26.9-34.4)
[2016-12-03] MEDS ORDERED: ESCITALOPRAM OXALATE 10 MG TABLET (FP) ONE (09:18)
[2016-12-03] MEDS: LISINOPRIL 5 MG TABLET (FP) PO SCH (09:35)
[2016-12-03] MEDS: MAGNESIUM OXIDE 400 MG TABLET (FP) PO SCH ×2 (09:36→21:51)
[2016-12-03] MEDS: ACYCLOVIR 400 MG TABLET PO SCH (09:37)
[2016-12-03] MEDS: ALLOPURINOL 300 MG TABLET (FP) PO SCH (09:37)
[2016-12-03] MEDS: CARVEDILOL 3.125 MG TABLET (FP) PO SCH ×2 (09:38→21:51)
[2016-12-03] MEDS: ESCITALOPRAM OXALATE 20 MG TABLET (FP) PO SCH (09:38)
[2016-12-03] MEDS: ENOXAPARIN NA (PORCINE) 40 MG/0.4 ML DISP.SYRIN SQ SCH (10:06)
[2016-12-03 10:38] LABS: PLATELET ESTIMATE ADEQUATE (NORMAL)
[2016-12-03] MEDS: VANCOMYCIN 750 MG in DEXTROSE 5%-WATER - 250 ML IVPB SCH ×2 (11:02→22:57)
--- NOTE | 2016-12-03 11:24 | PN ---
Physical Exam: SUBJECTIVE: Patient seen and examined. She is in a lot of pain and discomfort to her RCW. Light clothing is sensitive to skin. Denies fever, chills, sob. OBJECTIVE: Vital Signs Period Temp Pulse Resp BP Sys/Menendez Pulse Ox Last 24 Hr 97.9 F-99.1 F 76-85 18-21 125-141/75-87 97 PE Gen: mild-mod distress d/t pain Neuro: alert, awake, cn 2-12intact Pulm: CTAB CV: s1 s2 rrr no mrg Abd: s nt nd +bs Ext: warm, no le edema Skin: port site: RCW hematoma, warm, erythema, +++tenderness, port incision with steri strips and induration Laboratory Results - last 24 hr 12/01/16 12/03/16 12/03/16 09:17 06:35 06:35 WBC 4.7 D RBC 2.83 L Hgb 9.2 L Hct 26.6 L MCV 94.0 MCHC 34.7 RDW 18.8 H Plt Count 108 L D MPV 7.9 Neutrophils % 83.0 H D Lymphocytes % 4.0 L D Monocytes % 10.0 Eosinophils % 1.0 Band Neutrophils 2.0 D Platelet Estimate Adequate INR 1.12 PTT (Actin FS) 28.1 Fibrinogen 478.0 Sodium Potassium Chloride Carbon Dioxide Anion Gap BUN Creatinine Creat Clearance w eGFR Random Glucose Calcium Magnesium Total Bilirubin AST ALT Alkaline Phosphatase Total Protein Albumin Crossmatch See Detail 12/03/16 06:35 WBC RBC Hgb Hct MCV MCHC RDW Plt Count MPV Neutrophils % Lymphocytes % Monocytes % Eosinophils % Band Neutrophils Platelet Estimate INR PTT (Actin FS) Fibrinogen Sodium 143 Potassium 4.2 Chloride 109 H Carbon Dioxide 26 Anion Gap 8 BUN 8 Creatinine 0.5 L Creat Clearance w eGFR > 60 Random Glucose 90 Calcium 7.7 L Magnesium 2.2 Total Bilirubin 0.6 D AST 30 ALT 18 Alkaline Phosphatase 287 H Total Protein 6.0 L Albumin 3.1 L Crossmatch Active Medications Generic Name Dose Route Start Last Admin Trade Name Freq PRN Reason Stop Dose Admin Acyclovir 400 mg 12/02/16 17:30 12/03/16 09:37 Zovirax - PO 400 mg DAILY TANIYA Administration Allopurinol 300 mg 12/01/16 10:00 12/03/16 09:37 Zyloprim - PO 300 mg DAILY TANIYA Administration Carvedilol 3.125 mg 12/01/16 10:00 12/03/16 09:38 Coreg - PO 3.125 mg BID TANIYA Administration Enoxaparin Sodium 40 mg 12/03/16 10:00 12/03/16 10:06 Lovenox - SQ Not Given DAILY TANIYA Escitalopram Oxalate 20 mg 12/02/16 17:45 12/03/16 09:38 Lexapro - PO Not Given DAILY TANIYA Fentanyl 1 patch 12/02/16 10:00 12/02/16 09:46 Duragesic 12mcg Patch - TD 12/08/16 03:00 1 patch Q72H TANIYA Administration Hydrocodone Bitartrate/Ibuprofen 1 tab 12/01/16 13:04 12/03/16 06:19 Vicoprofen 7.5/200 Mg [Nf Medication] PO 1 tab Q4H PRN Administration Vancomycin HCl 750 mg/ 250 mls @ 250 mls/hr 12/01/16 11:00 12/03/16 11:02 Dextrose IVPB 250 mls/hr Q12H TANIYA Administration Protocol Sodium Chloride 1,000 mls @ 50 mls/hr 12/02/16 17:15 12/02/16 18:25 Normal Saline - IV 12/03/16 17:14 50 mls/hr ASDIR TANIYA Administration Levothyroxine Sodium 125 mcg 12/01/16 07:00 12/03/16 06:19 Synthroid - PO 125 mcg DAILY@0700 TANIYA Administration Lisinopril 2.5 mg 12/01/16 10:00 12/03/16 09:35 Prinivil PO 2.5 mg DAILY TANIYA Administration Magnesium Oxide 400 mg 12/01/16 10:30 12/03/16 09:36 Mag-Ox - PO 400 mg BID TANIYA Administration Miscellaneous 1 each 12/01/16 02:59 12/02/16 09:50 Duragesic Patch Waste MC 1 each PRN PRN Administration PAIN Piperacillin Sod/Tazobactam Sod 3.375 gm 12/01/16 10:30 12/03/16 09:39 Zosyn 3.375gm Ivpb (Pre-Docked) IVPB 3.375 gm Q8H-IV TANIYA Administration Protocol Assessment: 61 year old female with a significant PMH of multiple myeloma x 10 years admitted with possible infected mediport. Plan: 1. Chemo related burn over port site vs infection - Infection/abscess ruled out on repeat CT scan, only inflammatory changes about the port site noted - For port removal today with IR - Pain management, as below, for severely painful site - Continue Vanc (day 3) zosyn (day 3) - Empiric Acyclovir daily 2. Multiple myeloma - s/p multiple chemotherapy, immunotherapy, and multiple sites of RT in past - 11/15-11/19, s/p continuous cytoxan, cis-[place], etoposide, w/ 4 days of decadron PO daily - Pathologic fracture of 3rd metatarsal 3. Acute blood loss anemia - s/p 2uprbc 12/01 - Monitor hgb; improved today 4. Thrombocytopenia - Due to MM, several rounds of chemo/RT - Received 2 units platelets last night for today port removal 5. Hypothyroidism - Daily levothyroxine 6. Pain - Vicoprofen q4h PRN - Fentanyl 12mcg q72h 7. DVT ppx - Lovenox sq Dispo: continues to require inpatient care. Full Code. Visit type - Emergency Visit Emergency Visit: Yes ED Registration Date: 12/01/16 Care time: The patient presented to the Emergency Department on the above date and was hospitalized for further evaluation of their emergent condition. - New Patient This patient is new to me today: Yes Date on this admission: 12/03/16 - Critical Care Critical Care patient: No
[2016-12-03] MEDS ORDERED: SUCCINYLCHOLINE CHLORIDE 200 MG/10 ML VIAL ONE (12:41)
[2016-12-03] MEDS ORDERED: MIDAZOLAM HCL 2 MG/2 ML SINGLE DOSE VIAL ONE (12:41)
[2016-12-03] MEDS ORDERED: PROPOFOL 20 ML ONE ×2 (12:41)
[2016-12-03] MEDS ORDERED: DEXAMETHASONE SOD PHOSPHATE 4 MG/1 ML VIAL ONE (12:42)
[2016-12-03] MEDS ORDERED: LIDOCAINE HCL/PF 2% SDV 5ML VIAL ONE (12:45)
[2016-12-03] MEDS ORDERED: LIDOCAINE HCL 1%, 10 MG/ML (20ML VIAL) ONE (12:54)
[2016-12-03] MEDS ORDERED: LIDOCAINE HCL 2% JELLY (5 ML/TUBE) ONE (13:14)
[2016-12-03] MEDS ORDERED: LIDOCAINE HCL 1%, 10 MG/ML (20ML VIAL) IJ ONE (13:21)
[2016-12-03] MEDS ORDERED: ONDANSETRON 4 MG/2 ML VIAL IVPUSH PRN (14:34)
[2016-12-03] MEDS ORDERED: LACTATED RINGERS SOLUTION 1,000 ML IV SCH (14:45)
--- NOTE | 2016-12-03 15:20 | EKG ---
Test Reason : Blood Pressure : / mmHG Vent. Rate : 079 BPM Atrial Rate : 079 BPM P-R Int : 122 ms QRS Dur : 090 ms QT Int : 406 ms P-R-T Axes : -06 -32 -07 degrees QTc Int : 465 ms NORMAL SINUS RHYTHM LEFT AXIS DEVIATION MINIMAL VOLTAGE CRITERIA FOR LVH, MAY BE NORMAL VARIANT ABNORMAL ECG WHEN COMPARED WITH ECG OF 01-DEC-2016 00:45, T WAVE VARIATION Confirmed by ERIK SWEENEY, JAN ([id number]) on 12/03/2016 3:20:03 PM Referred By: Kale SHEN Confirmed By:JAN VALENCIA MD
--- NOTE | 2016-12-03 18:44 | PN ---
Progress Note (short form) - Note Progress Note: Patient seen and examined. S/p port removal under anesthesia- Continuing on antibiotics per I.D. Last Vital Signs Temp Pulse Resp BP Pulse Ox 98.1 F 78 18 130/74 99 12/03/16 15:53 12/03/16 15:53 12/03/16 15:53 12/03/16 15:53 12/03/16 15:48 HEENT: MELANY, EOM Intact Oropharynx: No thrush, No mucositis, dry mucous membranes chest wall -port site -some receding of induration and erythema Cor: RSR, No murmurs, No gallops Lungs: Clear to P&A Abd: Soft, Normal bowel sounds, No organomegaly Ext:No significant edema Skin: No rashes, Integument intact CBC, BMP 12/03/16 06:35 12/03/16 06:35 Current Medications Generic Name Dose Route Start Last Admin Trade Name Freq PRN Reason Stop Dose Admin Acyclovir 400 mg 12/02/16 17:30 12/03/16 09:37 Zovirax - PO 400 mg DAILY TANIYA Administration Allopurinol 300 mg 12/01/16 10:00 12/03/16 09:37 Zyloprim - PO 300 mg DAILY TANIYA Administration Carvedilol 3.125 mg 12/01/16 10:00 12/03/16 09:38 Coreg - PO 3.125 mg BID TANIYA Administration Enoxaparin Sodium 40 mg 12/03/16 10:00 12/03/16 10:06 Lovenox - SQ Not Given DAILY TANIYA Escitalopram Oxalate 20 mg 12/02/16 17:45 12/03/16 09:38 Lexapro - PO Not Given DAILY TANIYA Fentanyl 1 patch 12/02/16 10:00 12/02/16 09:46 Duragesic 12mcg Patch - TD 12/08/16 03:00 1 patch Q72H TANIYA Administration Hydrocodone Bitartrate/Ibuprofen 1 tab 12/01/16 13:04 12/03/16 06:19 Vicoprofen 7.5/200 Mg [Nf Medication] PO 1 tab Q4H PRN Administration Vancomycin HCl 750 mg/ 250 mls @ 250 mls/hr 12/01/16 11:00 12/03/16 11:02 Dextrose IVPB 250 mls/hr Q12H TANIYA Administration Protocol Levothyroxine Sodium 125 mcg 12/01/16 07:00 12/03/16 06:19 Synthroid - PO 125 mcg DAILY@0700 TANIYA Administration Lisinopril 2.5 mg 12/01/16 10:00 12/03/16 09:35 Prinivil PO 2.5 mg DAILY TANIYA Administration Magnesium Oxide 400 mg 12/01/16 10:30 12/03/16 09:36 Mag-Ox - PO 400 mg BID TANIYA Administration Miscellaneous 1 each 12/01/16 02:59 12/02/16 09:50 Duragesic Patch Waste MC 1 each PRN PRN Administration PAIN Ondansetron HCl 4 mg 12/03/16 14:34 Zofran Injection IVPUSH 12/03/16 20:35 Q6H PRN NAUSEA AND/OR VOMITING Piperacillin Sod/Tazobactam Sod 3.375 gm 12/01/16 10:30 12/03/16 18:14 Zosyn 3.375gm Ivpb (Pre-Docked) IVPB 3.375 gm Q8H-IV TANIYA Administration Protocol Impression: S/P port removal ?Extravasation of chemotherapy causing chest wall infiltration, erythema C1, d18 s/p chemotherapy with cytoxan, etoposide, cis [place] Myeloma not in remission Cytopenias secondary to chemotherapy Paln: Continuing with antibiotics per ID Port site/lines -cultured ( but patient had been on antibiotics) Pain management -Fentanyl and vicodan Anxiety- declines meds Lovenox added- monitor cbc carefully as patient may develop thrombocytopenia and lovenox may not be appropriate. Monitor chems and CBC on antibiotics. Problem List - Problems (1) Anemia Code(s): D64.9 - ANEMIA, UNSPECIFIED (2) Fever Code(s): R50.9 - FEVER, UNSPECIFIED (3) Infection due to port-a-cath Code(s): T80.219A - UNSP INFECTION DUE TO CENTRAL VENOUS CATHETER, INIT ENCNTR Qualifiers: Encounter type: initial encounter Qualified Code(s): T80.219A - Unspecified infection due to central venous catheter, initial encounter (4) Multiple myeloma Code(s): C90.00 - MULTIPLE MYELOMA NOT HAVING ACHIEVED REMISSION Qualifiers: Multiple myeloma remission status: unspecified (5) Fracture of 3rd metatarsal Code(s): S92.333A - DISP FX OF THIRD METATARSAL BONE, UNSP FOOT, INIT Qualifiers: Encounter type: initial encounter Fracture type: closed Fracture alignment: nondisplaced Laterality: left Qualified Code(s): S92.335A - Nondisplaced fracture of third metatarsal bone, left foot, initial encounter for closed fracture (6) Neutropenia Code(s): D70.9 - NEUTROPENIA, UNSPECIFIED Qualifiers: Neutropenia type: secondary to cancer chemotherapy Qualified Code(s) : D70.1 - Agranulocytosis secondary to cancer chemotherapy (7) Thrombocytopenia Code(s): D69.6 - THROMBOCYTOPENIA, UNSPECIFIED
[2016-12-04] MEDS: IBUPROFEN PO PRN ×5 (01:45→23:21)
[2016-12-04] MEDS: HYDROCODONE PO PRN ×5 (01:45→23:21)
[2016-12-04] MEDS: PIPERACILLIN/TAZOB 3.375 GM/50 ML PRE-DOCKED IVPB SCH ×3 (01:46→17:22)
[2016-12-04] MEDS: LEVOTHYROXINE NA 125 MCG TABLET (FP) PO SCH (06:44)
[2016-12-04 08:43] LABS: BASOPHIL 0.6 % (0-2.0); EOSINOPHIL 0.7 % (0-4.5); MCH 32.8 pg (25.7-33.7); MCHC 34.4 g/dl (32.0-36.0); MEAN CELL VOLUME 95.2 fl (80-96); MEAN PLT VOLUME 8.1 fl (7.5-11.1); NEUTROPHILS 83.2 % (42.8-82.8); PLATELET COUNT 80 K/MM3 (134-434); RDW 18.6 % (11.6-15.6); WHITE BLOOD COUNT 4.4 K/mm3 (4.0-10.0)
[2016-12-04 09:12] LABS: CALCIUM 7.7 mg/dL (8.5-10.1); COCKROFT - GAULT 128.707; CREATININE 0.4 mg/dL (0.55-1.02)
[2016-12-04] MEDS ORDERED: ESCITALOPRAM OXALATE 10 MG TABLET (FP) ONE (10:15)
[2016-12-04] MEDS ORDERED: PT OWN MED DRAWER 7, Y5N ONE (10:16)
[2016-12-04] MEDS: ACYCLOVIR 400 MG TABLET PO SCH (10:24)
[2016-12-04] MEDS: ALLOPURINOL 300 MG TABLET (FP) PO SCH (10:24)
[2016-12-04] MEDS: LISINOPRIL 5 MG TABLET (FP) PO SCH (10:24)
[2016-12-04] MEDS: MAGNESIUM OXIDE 400 MG TABLET (FP) PO SCH ×2 (10:24→21:08)
[2016-12-04] MEDS: CARVEDILOL 3.125 MG TABLET (FP) PO SCH ×2 (10:25→21:08)
[2016-12-04] MEDS: ENOXAPARIN NA (PORCINE) 40 MG/0.4 ML DISP.SYRIN SQ SCH (10:25)
[2016-12-04] MEDS: ESCITALOPRAM OXALATE 20 MG TABLET (FP) PO SCH (10:25)
[2016-12-04] MEDS: VANCOMYCIN 750 MG in DEXTROSE 5%-WATER - 250 ML IVPB SCH (13:25)
--- NOTE | 2016-12-04 13:56 | PN ---
Progress Note (short form) - Note Progress Note: feels well much less pain port removed yesterday feels much better Vital Signs Period Temp Pulse Resp BP Sys/Menendez Pulse Ox Last 24 Hr 97.8 F-99.5 F 77-98 16-20 113-158/65-92 97-100 cor-rrr lungs clear less erythema of right anterior chest wall abd soft,nt ext no edema CBC, BMP 12/04/16 06:52 12/04/16 06:52 Microbiology 12/01/16 00:30 Blood - Peripheral Venous Blood Culture - Preliminary NO GROWTH OBTAINED AFTER 72 HOURS, INCUBATION TO CONTINUE FOR 2 DAYS. 12/01/16 00:15 Blood - Peripheral Venous Blood Culture - Preliminary NO GROWTH OBTAINED AFTER 72 HOURS, INCUBATION TO CONTINUE FOR 2 DAYS. cultures and gram stain from port pending a/p port infection versus extravasaton at port site s/p port removal continue vanco/zosyn awaiting port gramstain ?po keflex when ready to go home MM- progressing s/p chemo history hypothyroidism
--- NOTE | 2016-12-04 15:00 | PN ---
Physical Exam: SUBJECTIVE: Patient seen and examined. She is oob to chair doing very well. States she is no longer feeling like her skin is burning and coming out of her chest. OBJECTIVE: Vital Signs Period Temp Pulse Resp BP Sys/Menendez Pulse Ox Last 24 Hr 97.8 F-99.5 F 78-98 18-20 119-158/65-92 97-100 PE Gen: calm Neuro: alert, awake, cn 2-12intact Pulm: CTAB CV: s1 s2 rrr no mrg Abd: s nt nd +bs Ext: warm, no le edema Skin: port site: RCW hematoma- improved, erythema- less, mild induration, dressing CDI Laboratory Results - last 24 hr 12/01/16 12/04/16 12/04/16 09:17 06:52 06:52 WBC 4.4 RBC 2.82 L Hgb 9.2 L Hct 26.8 L MCV 95.2 MCHC 34.4 RDW 18.6 H Plt Count 80 L D MPV 8.1 Neutrophils % 83.2 H Lymphocytes % 5.7 L D Monocytes % 9.8 Eosinophils % 0.7 Basophils % 0.6 D Sodium 142 Potassium 4.2 Chloride 108 H Carbon Dioxide 28 Anion Gap 6 L BUN 5 L D Creatinine 0.4 L Random Glucose 82 Calcium 7.7 L Vancomycin Pre-Dose Blood Type A NEGATIVE Antibody Screen Negative Crossmatch See Detail 12/04/16 10:30 Vancomycin Pre-Dose 7.926 Active Medications Generic Name Dose Route Start Last Admin Trade Name Freq PRN Reason Stop Dose Admin Acyclovir 400 mg 12/02/16 17:30 12/04/16 10:24 Zovirax - PO 400 mg DAILY TANIYA Administration Allopurinol 300 mg 12/01/16 10:00 12/04/16 10:24 Zyloprim - PO 300 mg DAILY TANIYA Administration Carvedilol 3.125 mg 12/01/16 10:00 12/04/16 10:25 Coreg - PO 3.125 mg BID TANIYA Administration Enoxaparin Sodium 40 mg 12/03/16 10:00 12/04/16 10:25 Lovenox - SQ Not Given DAILY TANIYA Fentanyl 1 patch 12/02/16 10:00 12/02/16 09:46 Duragesic 12mcg Patch - TD 12/08/16 03:00 1 patch Q72H TANIYA Administration Hydrocodone Bitartrate/Ibuprofen 1 tab 12/01/16 13:04 12/04/16 12:32 Vicoprofen 7.5/200 Mg [Nf Medication] PO 1 tab Q4H PRN Administration Levothyroxine Sodium 125 mcg 12/01/16 07:00 12/04/16 06:44 Synthroid - PO 125 mcg DAILY@0700 TANIYA Administration Lisinopril 2.5 mg 12/01/16 10:00 12/04/16 10:24 Prinivil PO 2.5 mg DAILY TANIYA Administration Magnesium Oxide 400 mg 12/01/16 10:30 12/04/16 10:24 Mag-Ox - PO 400 mg BID TANIYA Administration Miscellaneous 1 each 12/01/16 02:59 12/02/16 09:50 Duragesic Patch Waste MC 1 each PRN PRN Administration PAIN Piperacillin Sod/Tazobactam Sod 3.375 gm 12/01/16 10:30 12/04/16 10:25 Zosyn 3.375gm Ivpb (Pre-Docked) IVPB 3.375 gm Q8H-IV TANIYA Administration Protocol Vancomycin HCl 1,000 mg 12/04/16 22:00 Vancomycin (Pre-Docked) IVPB BID [facility] Protocol Imaging: - CT Chest 12/02: Infection/abscess ruled out on repeat CT scan, only inflammatory changes about the port site noted Assessment: 61 year old female with a significant PMH of multiple myeloma x 10 years [facility] Plan: 1. Chemo related burn over port site with hematoma - Port removed in IR 12/03 - Continue Vanc (day 4) zosyn (day 4) - Empiric Acyclovir daily - ID to transition to PO once final micro in/onc clearance 2. Multiple myeloma - s/p multiple chemotherapy, immunotherapy, and multiple sites of RT in past - 11/15-11/19, s/p continuous cytoxan, cis-[place], etoposide, w/ 4 days of decadron PO daily - Pathologic fracture of 3rd metatarsal 3. Acute blood loss anemia - s/p 2uprbc 12/01 - Hgb stable 4. Thrombocytopenia - Due to MM, several rounds of chemo/RT - 2Uplts 12/02 last night for today port removal 5. Hypothyroidism - Daily levothyroxine 6. Pain - Vicoprofen q4h PRN - Fentanyl 12mcg q72h 7. DVT ppx - OOB- ambulation, stop lovenox Visit type - Emergency Visit Emergency Visit: Yes ED Registration Date: 12/01/16 Care time: The patient presented to the Emergency Department on the above date and was hospitalized for further evaluation of their emergent condition. - New Patient This patient is new to me today: No - Critical Care Critical Care patient: No
--- NOTE | 2016-12-04 16:56 | PN ---
Progress Note (short form) - Note Progress Note: Port a cath removed by Dr Villasenor Pain at site improved Vital Signs Period Temp Pulse Resp BP Sys/Menendez Pulse Ox Last 24 Hr 97.8 F-99.5 F 78-98 18-20 134-158/69-92 97-97 Right chest wall- Wound dressed, erythema improved CBC, BMP 12/04/16 06:52 12/04/16 06:52 Continue current management Wound care Problem List - Problems (1) Infection due to port-a-cath Code(s): T80.219A - UNSP INFECTION DUE TO CENTRAL VENOUS CATHETER, INIT ENCNTR Qualifiers: Encounter type: initial encounter Qualified Code(s): T80.219A - Unspecified infection due to central venous catheter, initial encounter (2) Multiple myeloma Code(s): C90.00 - MULTIPLE MYELOMA NOT HAVING ACHIEVED REMISSION Qualifiers: Multiple myeloma remission status: unspecified
--- NOTE | 2016-12-04 19:41 | CONSULT ---
Consult - text type - Consultation Consultation Note: Previously seen after she had a Port placed in Radiology with swelling and pain around port pocket. The pain and discoloration have persisted and worsened and the port was removed yesterday. SHe is concerned about possible healing problems due to prior radiation therapy to chest. Port site dressing is clean and dry with multiple steristrips covering wound. There is skin tenderness, no erythema. At this point there is no evidence for infection. No procedure note is available to review findings at time of removal. Rec: Keep wound clean and dry. Antibiotics for empiric coverage. I will follow in my office..
[2016-12-04] MEDS: VANCOMYCIN 1 GRAM (PRE-DOCKED) 1,000 MG/250 ML BAG IVPB SCH (21:08)
--- NOTE | 2016-12-04 21:33 | PN ---
Progress Note (short form) - Note Progress Note: Patient seen and examined pain and erythema improved AFVSS Cor: RSR, No murmurs, No gallops Lungs: Clear to P&A Chest --erythema at port site, induration Abd: Soft, Normal bowel sounds, No organomegaly Ext:No significant edema Labs/meds reviewed A/P 61 y/o patient with myeloma, C1 D 20 DCEP s/p neulasta/neupogen WBC improved s/p port-a-cath removal On antibiotics will request consult with dr. feldman for wound care
[2016-12-05] MEDS: PIPERACILLIN/TAZOB 3.375 GM/50 ML PRE-DOCKED IVPB SCH ×2 (02:54→09:45)
[2016-12-05] MEDS: IBUPROFEN PO PRN ×3 (05:33→13:55)
[2016-12-05] MEDS: HYDROCODONE PO PRN ×3 (05:33→13:55)
[2016-12-05] MEDS: LEVOTHYROXINE NA 125 MCG TABLET (FP) PO SCH (06:42)
[2016-12-05 07:19] LABS: MCH 32.6 pg (25.7-33.7); MCHC 34.3 g/dl (32.0-36.0); MEAN PLT VOLUME 8.2 fl (7.5-11.1); PLATELET COUNT 68 K/MM3 (134-434); RDW 18.6 % (11.6-15.6); WHITE BLOOD COUNT 4.7 K/mm3 (4.0-10.0)
[2016-12-05 07:46] LABS: ALBUMIN 2.8 g/dl (3.4-5.0); ANION GAP 7 (8-16); CO2 26 mmol/L (21-32); COCKROFT - GAULT 102.9605; CREATININE 0.5 mg/dL (0.55-1.02); GLUCOSE,RANDOM 87 mg/dL (74-106); SGOT/AST 30 U/L (15-37); SGPT/ALT 16 U/L (12-78)
[2016-12-05 07:49] LABS: ALK PHOS 307 U/L (45-117); BILIRUBIN,TOTAL 0.4 mg/dL (0.2-1.0)
[2016-12-05] MEDS ORDERED: PT OWN MED DRAWER 7, Y5N ONE (09:30)
[2016-12-05] MEDS: ALLOPURINOL 300 MG TABLET (FP) PO SCH (09:34)
[2016-12-05] MEDS: MAGNESIUM OXIDE 400 MG TABLET (FP) PO SCH (09:34)
[2016-12-05] MEDS: CARVEDILOL 3.125 MG TABLET (FP) PO SCH (09:34)
[2016-12-05] MEDS: LISINOPRIL 5 MG TABLET (FP) PO SCH (09:34)
[2016-12-05] MEDS: ACYCLOVIR 400 MG TABLET PO SCH (09:35)
[2016-12-05] MEDS: fentaNYL 12mcg/hr PATCH.TD72 TD SCH (09:38)
[2016-12-05] MEDS: FENTANYL PATCH WASTE MC PRN (09:39)
[2016-12-05] MEDS: VANCOMYCIN 1 GRAM (PRE-DOCKED) 1,000 MG/250 ML BAG IVPB SCH (09:45)
--- NOTE | 2016-12-05 10:08 | PN ---
Progress Note, Physician Chief Complaint: ID Doing well NO fever or chills Chest feels better - Current Medication List Current Medications: Active Medications Acyclovir (Zovirax -) 400 mg PO DAILY [facility] Last Admin: 12/05/16 09:35 Dose: 400 mg Allopurinol (Zyloprim -) 300 mg PO DAILY [facility] Last Admin: 12/05/16 09:34 Dose: 300 mg Carvedilol (Coreg -) 3.125 mg PO BID [facility] Last Admin: 12/05/16 09:34 Dose: 3.125 mg Fentanyl (Duragesic 12mcg Patch -) 1 patch TD Q72H [facility] Stop: 12/08/16 03:00 Last Admin: 12/05/16 09:38 Dose: 1 patch Hydrocodone Bitartrate/Ibuprofen (Vicoprofen 7.5/200 Mg [Nf Medication]) 1 tab PO Q4H PRN Last Admin: 12/05/16 09:33 Dose: 1 tab Levothyroxine Sodium (Synthroid -) 125 mcg PO DAILY@0700 [facility] Last Admin: 12/05/16 06:42 Dose: 125 mcg Lisinopril (Prinivil) 2.5 mg PO DAILY [facility] Last Admin: 12/05/16 09:34 Dose: 2.5 mg Magnesium Oxide (Mag-Ox -) 400 mg PO BID [facility] Last Admin: 12/05/16 09:34 Dose: 400 mg Miscellaneous (Duragesic Patch Waste) 1 each MC PRN PRN PRN Reason: PAIN Last Admin: 12/05/16 09:39 Dose: 1 each Piperacillin Sod/Tazobactam Sod (Zosyn 3.375gm Ivpb (Pre-Docked)) 3.375 gm IVPB Q8H-IV [facility] PRN Reason: Protocol Last Admin: 12/05/16 09:45 Dose: Not Given Vancomycin HCl (Vancomycin (Pre-Docked)) 1,000 mg IVPB BID [facility] PRN Reason: Protocol Last Admin: 12/05/16 09:45 Dose: Not Given - Objective Vital Signs: Vital Signs Temperature 98.3 F 12/05/16 09:04 Pulse Rate 82 12/05/16 09:04 Respiratory Rate 20 12/05/16 09:04 Blood Pressure 140/85 12/05/16 09:04 O2 Sat by Pulse Oximetry (%) 97 12/04/16 21:00 Constitutional: Yes: Well Nourished, No Distress Cardiovascular: Yes: Other (Chest Catheter area erythema subsiding much less angry red and swollen) Labs: CBC, BMP 12/05/16 06:20 12/05/16 06:20 INR, PTT INR 1.12 (0.82-1.09) 12/03/16 06:35 Fibrinogen 478.0 mg/dL (238-498) 12/03/16 06:35 Assessment/Plan Microbiology 12/03/16 13:30 Wound-Other Gram Stain - Final 12/01/16 00:30 Blood - Peripheral Venous Blood Culture - Preliminary NO GROWTH OBTAINED AFTER 96 HOURS, INCUBATION TO CONTINUE FOR 1 DAYS. 12/01/16 00:15 Blood - Peripheral Venous Blood Culture - Preliminary NO GROWTH OBTAINED AFTER 96 HOURS, INCUBATION TO CONTINUE FOR 1 DAYS. Laboratory Tests 12/05/16 12/05/16 06:20 06:20 WBC 4.7 Hgb 9.3 L Hct 27.0 L Plt Count 68 L BUN 7 D Creatinine 0.5 L D Assessment Cultures no growth Patient much better Can be discharged Plan stop IV antibiotics Cefodoxime 400mg bid 5-7 days Discussed oncology Aubrey SWEENEY
--- NOTE | 2016-12-05 12:41 | DS ---
Physical Examination Vital Signs: Vital Signs Temperature 98.3 F 12/05/16 09:04 Pulse Rate 82 12/05/16 09:04 Respiratory Rate 20 12/05/16 09:04 Blood Pressure 140/85 12/05/16 09:04 O2 Sat by Pulse Oximetry (%) 97 12/05/16 09:00 Labs: CBC, BMP 12/05/16 06:20 12/05/16 06:20 Discharge Summary Reason For Visit: INFECTION DUE TO PORTACATH,MULTIPLE MYELOMA Current Active Problems Anemia (Acute) DVT prophylaxis (Acute) Fever (Acute) Infected blister of chest wall (Acute) Infection due to port-a-cath (Acute) Multiple myeloma (Acute) Thrombocytopenia (Acute) Condition: Improved - Instructions Diet, Activity, Other Instructions: Please return to the ED with new, persistent, or worsening symptoms. Please follow-up with providers as indicated Keep right chest wall wound clean and dry. Complete full course of Cefpodoxime 400mg by mouth twice a day Referrals: Juventino Herrera MD [Staff Physician] - 1 Week Agustin Murphy MD [Staff Physician] - (Please follow-up with Dr. Murphy within 2-3 days for further evaluation of your right chest wall port site) Lesvia Manning MD [Staff Physician] - 1 Week () Disposition: HOME - Home Medications Comprehensive Discharge Medication List: Ambulatory Orders Levothyroxine [Synthroid -] 125 mcg PO DAILY 12/18/12 Allopurinol 300 mg PO DAILY 01/31/16 Carvedilol [Coreg] 3.125 mg PO BID 07/09/16 Lisinopril [Zestril] 2.5 mg PO DAILY 07/09/16 FENTANYL 12mcg PATCH 12 mcg TD Q72H 11/14/16 Hydrocodone/Ibuprofen [Hydrocodone-Ibuprofen 7.5-200] QID PRN 12/01/16 Acyclovir [Zovirax -] 400 mg PO DAILY #30 tablet 12/05/16 Cefpodoxime Proxetil [Vantin -] 400 mg PO Q12H #28 tablet 12/05/16 Magnesium Oxide [Mag-Ox -] 400 mg PO BID #60 tablet 12/05/16
--- NOTE | 2016-12-05 14:36 | PN ---
Progress Note (short form) - Note Progress Note: Patient seen and examined pain and erythema improved Last Vital Signs Temp Pulse Resp BP Pulse Ox 98.3 F 84 20 145/89 97 12/05/16 14:00 12/05/16 14:00 12/05/16 14:00 12/05/16 14:00 12/05/16 09:00 Cor: RSR, No murmurs, No gallops Lungs: Clear to P&A Chest --erythema at port site, induration Abd: Soft, Normal bowel sounds, No organomegaly Ext:No significant edema Labs/meds reviewed A/P 61 y/o patient with myeloma, C1 D 20 DCEP s/p neulasta/neupogen WBC improved s/p port-a-cath removal On antibiotics will request consult with dr. feldman for wound care
[2016-12-05 15:56] VITALS: BP 151/84; PULSE 79; TEMP 98.5
== END 2016-12-05 17:18 | disposition home or self-care (01) | DRG 315 ==
LOC: JER 23:45 → JERBED 12-01 00:38 → J6S 12-01 02:17
PROVIDERS: ADMIT Internal Medicine; ATTEND Registered Nurse
PROC: 30233N1 Transfusion of Nonautologous Red Blood Cells into Peripheral Vein, Percutaneous Approach (ICD-10-PCS; 2016-12-01)
PROC: 0WP803Z Removal of Infusion Device from Chest Wall, Open Approach (ICD-10-PCS; principal; 2016-12-03 12:30)
PROC: 30233R1 Transfusion of Nonautologous Platelets into Peripheral Vein, Percutaneous Approach (ICD-10-PCS; 2016-12-05)
DX: T80.219A Unspecified infection due to central venous catheter, initial encounter (principal); C90.00 Multiple myeloma not having achieved remission; D62 Acute posthemorrhagic anemia; Y83.8 Other surgical procedures as the cause of abnormal reaction of the patient, or of later complication, without mention of misadventure at the time of the procedure; Y92.9 Unspecified place or not applicable; G62.9 Polyneuropathy, unspecified; I10 Essential (primary) hypertension; E03.9 Hypothyroidism, unspecified; D69.59 Other secondary thrombocytopenia; T45.1X5A Adverse effect of antineoplastic and immunosuppressive drugs, initial encounter; D70.1 Agranulocytosis secondary to cancer chemotherapy
CPT/HCPCS: 36415; 36430; 36590; 71010-TC; 71260-TC; 76098-TC; 77001-TC; 80048; 80053; 83605; 83735; 85025; 85384; 85610; 85730; 86850; 86900; 86901; 86922; 87040; 87070; 87075; 87205; 87899; 93005; 93010; 94010; 94760; 99282-25; G0480; P9034; P9038; P9058

== ENCOUNTER 2017-02-05 09:25 | Day surgery (SDC) | payer BC ==
[2017-02-05] MEDS ORDERED: SODIUM CHLORIDE 500 ML IV ONE ×2 (10:00→15:00)
[2017-02-05 11:26] LABS: EOSINOPHIL 1.4 % (0-4.5); MCH 34.9 pg (25.7-33.7); MCHC 34.2 g/dl (32.0-36.0); MEAN CELL VOLUME 102.1 fl (80-96); MEAN PLT VOLUME 7.6 fl (7.5-11.1); NEUTROPHILS 90.7 % (42.8-82.8); PLATELET COUNT 79 K/MM3 (134-434); WHITE BLOOD COUNT 6.3 K/mm3 (4.0-10.0)
[2017-02-05 11:50] LABS: ALBUMIN 3.3 g/dl (3.4-5.0); ALK PHOS 107 U/L (45-117); ANION GAP 7 (8-16); BILIRUBIN,TOTAL 0.5 mg/dL (0.2-1.0); CALCIUM 11.4 mg/dL (8.5-10.1); CO2 28 mmol/L (21-32); CREATININE 0.6 mg/dL (0.55-1.02); GLUCOSE,RANDOM 88 mg/dL (74-106); SGOT/AST 74 U/L (15-37); SGPT/ALT 34 U/L (12-78); TOT PROT 8.5 g/dl (6.4-8.2)
[2017-02-05] MEDS ORDERED: FUROSEMIDE 40 MG TABLET (FP) PO ONE (12:00)
[2017-02-05] MEDS ORDERED: POTASSIUM CHLORIDE TABS 20 MEQ TABLET.ER (FP) PO ONE (12:00)
[2017-02-05] MEDS ORDERED: ZOLEDRONIC ACID 4 MG in SODIUM CHLORIDE 100 ML IVPB ONE (14:00)
--- NOTE | 2017-02-05 15:12 | HP ---
[facility]ellite [facility] - Chief Complaint History of Present Illness: MM , on Pomalyst/Cytoxan. Here for PRBC transfusions. Seen and examined. Denies any complains. - Past Medical History Allergies/Adverse Reactions: Allergies Allergy/AdvReac Type Severity Reaction Status Date / Time No Known Allergies Allergy Verified 11/30/16 23:55 DINKEY SKINNER: Yes: Peripheral Neuropathy Cardiovascular: Yes: Hyperlipdemia Heme/Onc: Yes: Anemia, Current Chemotherapy, Current Radiation Therapy, Thrombocytopenia Musculoskeletal: Yes: Chronic low back pain, Other (left foot fracture, back , shoulder, hip pain) Endocrine: Yes: Hypothyroidism - Current Medications Current Medications: Home Medications Medication Instructions Recorded Levothyroxine [Synthroid -] 125 mcg PO DAILY 12/18/12 Allopurinol 300 mg PO DAILY 01/31/16 Carvedilol [Coreg] 3.125 mg PO BID 07/09/16 Lisinopril [Zestril] 2.5 mg PO DAILY 07/09/16 FENTANYL 12mcg PATCH 12 mcg TD Q72H 11/14/16 Hydrocodone/Ibuprofen QID PRN 12/01/16 [Hydrocodone-Ibuprofen 7.5-200] Acyclovir [Zovirax -] 400 mg PO DAILY #30 tablet 12/05/16 Cefpodoxime Proxetil [Vantin -] 400 mg PO Q12H #28 tablet 12/05/16 Magnesium Oxide [Mag-Ox -] 400 mg PO BID #60 tablet 12/05/16 Satellite Physical Exam - Physical Examination Vital Signs: Vital Signs Period Temp Pulse Resp BP Sys/Menendez Pulse Ox Last 24 Hr 98.4 F 97 14 120/60 General Appearance: Well Nourished, Well Developed, Alert & Oriented x3 ENT: No Discharge, No masses Heart: Regular rate & rhythm, Normal S1, Normal S2 Abdomen: No tenderness Extremities: No edema Satellite Impression/Plan - Impression/Plan Impression: 2 U PRBC ( lasix in between). HyperCa, cannot give zometa ( due to dental issues). will give IVF for hyper ca.
[2017-02-05 17:03] VITALS: TEMP 98.6
[2017-02-05 20:54] VITALS: BP 126/73; PULSE 95
[2017-02-05 21:34] LABS: MCH 33.5 pg (25.7-33.7); MCHC 34.6 g/dl (32.0-36.0); MEAN CELL VOLUME 97.1 fl (80-96); MEAN PLT VOLUME 7.7 fl (7.5-11.1); PLATELET COUNT 73 K/MM3 (134-434); RDW 21.6 % (11.6-15.6); WHITE BLOOD COUNT 4.8 K/mm3 (4.0-10.0)
[2017-02-05 22:18] LABS: ANISOCYTOSIS 2+; HYPOCHROMIA 1+; PLATELET ESTIMATE DECREASED (NORMAL)
== END 2017-02-05 21:05 | disposition home or self-care (01) ==
LOC: JONCCHEMO 09:25 → J7W 10:47 → JONCCHEMO 21:05
PROVIDERS: ATTEND Internal Medicine Hematology & Oncology
PROC: 30233N1 Transfusion of Nonautologous Red Blood Cells into Peripheral Vein, Percutaneous Approach (ICD-10-PCS; principal; 2017-02-05)
DX: C90.00 Multiple myeloma not having achieved remission (principal); C79.51 Secondary malignant neoplasm of bone; E78.5 Hyperlipidemia, unspecified; E03.9 Hypothyroidism, unspecified; G62.9 Polyneuropathy, unspecified; J45.909 Unspecified asthma, uncomplicated; D69.0 Allergic purpura
CPT/HCPCS: 36415; 36430; 80053; 85025; 85027; 86850; 86900; 86901; 86922; P9038; P9058

== ENCOUNTER 2017-05-29 07:21 | Day surgery (SDC) | payer BC ==
[2017-05-29] MEDS ORDERED: DEXAMETHASONE INJECTION 20 MG, DIPHENHYDRAMINE 50 MG in SODIUM CHLORIDE 100 ML IVPB ONE (08:00)
[2017-05-29] MEDS ORDERED: ACETAMINOPHEN 325 MG TABLET (FP) PO ONE (08:00)
[2017-05-29] MEDS ORDERED: SODIUM CHLORIDE IVPB ONE (08:30)
[2017-05-29] MEDS ORDERED: DARATUMUMAB IVPB ONE (08:30)
[2017-05-29 09:37] LABS: BASOPHIL 0.2 % (0-2.0); EOSINOPHIL 3.9 % (0-4.5); MCH 36.9 pg (25.7-33.7); MCHC 33.3 g/dl (32.0-36.0); MEAN CELL VOLUME 110.8 fl (80-96); MEAN PLT VOLUME 8.8 fl (7.5-11.1); NEUTROPHILS 53.8 % (42.8-82.8); PLATELET COUNT 112 K/MM3 (134-434); RDW 17.5 % (11.6-15.6); WHITE BLOOD COUNT 5.4 K/mm3 (4.0-10.0)
[2017-05-29 10:01] LABS: ALBUMIN 3.2 g/dl (3.4-5.0); ALK PHOS 106 U/L (45-117); ANION GAP 6 (8-16); BILIRUBIN,TOTAL 0.7 mg/dL (0.2-1.0); CALCIUM 10.4 mg/dL (8.5-10.1); CO2 29 mmol/L (21-32); CREATININE 0.6 mg/dL (0.55-1.02); GLUCOSE,RANDOM 84 mg/dL (74-106); MAGNESIUM 1.7 mg/dL (1.8-2.4); SGOT/AST 39 U/L (15-37); SGPT/ALT 20 U/L (12-78); TOT PROT 6.7 g/dl (6.4-8.2)
[2017-05-29 10:15] LABS: ALBUMIN 3.3 g/dl (3.4-5.0); BILIRUBIN,DIRECT 0.2 mg/dL (0.0-0.2); BILIRUBIN,TOTAL 0.8 mg/dL (0.2-1.0); TOT PROT 6.7 g/dl (6.4-8.2)
[2017-05-29] MEDS ORDERED: MAGNESIUM SULFATE 2 GM in DEXTROSE 5%-WATER - 100 ML IVPB ONE (16:30)
[2017-05-29] MEDS ORDERED: MAGNESIUM SULF 50% (8.12 MEQ/2 ML-1 GM VIAL) IVPB ONE (16:45)
[2017-05-29 19:08] VITALS: BP 131/70; PULSE 81; TEMP 98.7
== END 2017-05-29 19:05 | disposition home or self-care (01) ==
LOC: JONCCHEMO 07:21 → J7W 09:55 → JONCCHEMO 19:05
PROVIDERS: ATTEND Internal Medicine Hematology & Oncology
PROC: 3E03305 Introduction of Other Antineoplastic into Peripheral Vein, Percutaneous Approach (ICD-10-PCS; principal; 2017-05-29)
PROC: 3E033GC Introduction of Other Therapeutic Substance into Peripheral Vein, Percutaneous Approach (ICD-10-PCS; 2017-05-29)
DX: Z51.11 Encounter for antineoplastic chemotherapy (principal); C90.00 Multiple myeloma not having achieved remission
CPT/HCPCS: 36415; 80053; 80076; 83735; 85025; 96365; 96367; 96413; 96415; 96417; J9145

== ENCOUNTER 2017-06-14 13:33 | Observation (INO) | payer BC ==
[2017-06-14 13:43] VITALS: BMI 18.3
--- NOTE | 2017-06-14 13:59 | PDOC ---
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 Herrera for 2 units of platelet transfusion. Patient states she had 4 consecutive days of chemotherapy for her multiple myeloma. Patient denies any dizziness, lightheadedness, headaches, visual disturbance, neck pain/stiffness, back pains, chest pain, shortness of breath, abdominal pains, urinary symptoms, flank pains, urinary extremity numbness or tingling sensation. Patient states her only complaint is she has generalized weakness which is not unusual and is not new. Patient states she spoke to her oncologist earlier today who informed her that the results of her platelets came in this morning and it was 26,000. Patient states she has a PICC line and wishes it to be accessed when she is admitted to the floor. Patient refuses chest x-ray, blood work. Patient states she had blood work done this morning. Past History - Past Medical History Allergies/Adverse Reactions: Allergies Allergy/AdvReac Type Severity Reaction Status Date / Time No Known Allergies Allergy Verified 06/14/17 13:35 Home Medications: Ambulatory Orders Levothyroxine [Synthroid -] 125 mcg PO DAILY 12/18/12 Allopurinol 300 mg PO DAILY 01/31/16 Carvedilol [Coreg] 3.125 mg PO BID 07/09/16 Lisinopril [Zestril] 2.5 mg PO DAILY 07/09/16 FENTANYL 12mcg PATCH 50 mcg TD Q72H 11/14/16 Hydrocodone/Ibuprofen [Hydrocodone-Ibuprofen 7.5-200] QID PRN 12/01/16 Acyclovir [Zovirax -] 400 mg PO DAILY #30 tablet 12/05/16 Cytoxan - 05/29/17 Decadron - 20 mg 05/29/17 Pomalyst 05/29/17 Anemia: Yes (IRON DEFICIENCY) Asthma: No Cancer: Yes (Multiple Myoloma) Cardiac Disorders: No CVA: No COPD: No CHF: No DVT: No Dementia: No Diabetes: No GI Disorders: No Disorders: No HTN: No Hypercholesterolemia: No Liver Disease: No Seizures: No Thyroid Disease: Yes (REMOVED(Hypo)) - Surgical History Abdominal Surgery: Yes Appendectomy: Yes Cardiac Surgery: No Cholecystectomy: Yes Lung Surgery: No Neurologic Surgery: No Orthopedic Surgery: No - Immunization History Immunization Up to Date: Yes - Suicide/Smoking/Psychosocial Hx Smoking Status: Yes Smoking History: Former smoker Have you smoked in the past 12 months: No Number of Cigarettes Smoked Daily: 0 If you are a former smoker, when did you quit?: 40yrs Information on smoking cessation initiated: No 'Breaking Loose' booklet given: 12/18/12 Hx Alcohol Use: No Drug/Substance Use Hx: No Substance Use Type: None Hx Substance Use Treatment: No Review of Systems - Review of Systems Able to Perform ROS?: Yes Comments:: 06/14/17 13:57 CONSTITUTIONAL: generalized weakness/"nothing new" Absent: fever, chills, diaphoresis, malaise, loss of appetite HEENT: Absent: rhinorrhea, nasal congestion, throat pain, throat swelling, difficulty swallowing, mouth swelling, ear pain, eye pain, visual Changes CARDIOVASCULAR: Absent: chest pain, loss of consciousness, palpitations, irregular heart rate, peripheral edema RESPIRATORY: Absent: cough, shortness of breath, dyspnea with exertion, orthopnea, wheezing, stridor, hemoptysis GASTROINTESTINAL: Absent: abdominal pain, abdominal distension, nausea, vomiting, diarrhea, constipation, melena, hematochezia GENITOURINARY: Absent: dysuria, frequency, urgency, hesitancy, hematuria, flank pain, genital pain MUSCULOSKELETAL: Absent: myalgia, arthralgia, joint swelling SKIN: Absent: rash, itching, pallor HEMATOLOGIC/IMMUNOLOGIC: Absent: easy bleeding, easy bruising, lymphadenopathy, frequent infections ENDOCRINE: Absent: unexplained weight gain, unexplained weight loss, heat intolerance, cold intolerance NEUROLOGIC: Absent: headache, focal weakness or paresthesias, dizziness, unsteady gait, seizure, mental status changes, bladder or bowel incontinence Is the patient limited Frisian proficient: No *Physical Exam - Vital Signs Last Vital Signs Temp Pulse Resp BP Pulse Ox 97.7 F 106 H 15 138/91 100 06/14/17 13:37 06/14/17 13:37 06/14/17 13:37 06/14/17 13:37 06/14/17 13:37 - Physical Exam Comments: 06/14/17 13:57 GENERAL: Well developed, well nourished. Awake and alert. No acute distress. HEENT: Normocephalic, atraumatic. PERRLA, EOMI. No conjunctival pallor. Sclera are non- icteric. Moist mucous membranes. Oropharynx is clear. NECK: Supple. Full ROM. No JVD. Carotid pulses 2+ and symmetric, without bruits. No thyromegaly. No lymphadenopathy. CARDIOVASCULAR: Regular rate and rhythm. No murmurs, rubs, or gallops. Distal pulses are 2+ and symmetric. PULMONARY: No evidence of respiratory distress. Lungs clear to auscultation bilaterally. No wheezing, rales or rhonchi. ABDOMINAL: Soft. Non-tender. Non-distended. No rebound or guarding. No organomegaly. Normoactive bowel sounds. MUSCULOSKELETAL Normal range of motion at all joints. No bony deformities or tenderness. No CVA tenderness. EXTREMITIES: No cyanosis. No clubbing. No edema. No calf tenderness. SKIN: Warm and dry. Normal capillary refill. No rashes. No jaundice. NEUROLOGICAL: Alert, awake, appropriate. Cranial nerves 2-12 intact. No deficits to light touch and temperature in face, upper extremities and lower extremities. No motor deficits in the in face, upper extremities and lower extremities. Normoreflexic in the upper and lower extremities. Normal speech. Toes are down- going bilaterally. Gait is normal without ataxia. PSYCHIATRIC: Cooperative. Good eye contact. Appropriate mood and affect. *DC/Admit/Observation/Transfer Diagnosis at time of Disposition: Thrombocytopenia Multiple myeloma Qualifiers: Multiple myeloma remission status: unspecified Qualified Code(s): C90.00 - Multiple myeloma not having achieved remission - Discharge Dispostion Condition at time of disposition: Guarded Admit: Yes - Referrals Referrals: Juventino Herrera MD [Primary Care Provider] - - Patient Instructions - Post Discharge Activity Progress Note - Progress Note Progress Note: 0203hrs: Dr. Herrera called/Pt's oncologist 0205hrs: Dr. Boateng answered/will see pt in the ER 0218hrs: Pt seen by Dr. Boateng. He was advised pt does not want b/w, cxr/ ekg. Dr. Boateng says it's fine. He will put in for 2U platlets. Admit to hospitalist 0220hrs: Microblogged Hospitalist
--- NOTE | 2017-06-14 15:34 | HP ---
Admitting History and Physical - Admission Chief Complaint: thrombocytopenia History of Present Illness: HPI: This is a 61 year old female with Multiple Myeloma x10 years s/p 4 days of chemo , hypothyroidism sent from ED for thrombocytopenia and 2 units of platelets. Per ED record pt wants to use her PICC line and wishes it to be accessed when she is admitted to the floor. Patient refuses chest x-ray, blood work. Patient states she had blood work done this morning. Denies sob, chest pain, abd pain, nausea, vomiting. She says she feels tired, but overall better than she did during this time last year when she had chemo. 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 Cardiovascular: Yes: Hyperlipdemia Heme/Onc: Yes: Anemia, Current Chemotherapy, Current Radiation Therapy, Thrombocytopenia Musculoskeletal: Yes: Chronic low back pain, Other (left foot fracture, back , shoulder, hip pain) Endocrine: Yes: Hypothyroidism - Smoking History Smoking history: Former smoker Have you smoked in the past 12 months: No Aproximately how many cigarettes per day: 0 If you are a former smoker, when did you quit?: 40yrs - Alcohol/Substance Use Hx Alcohol Use: No - Social History ADL: Independent History of Recent Travel: No Home Medications - Allergies Allergies/Adverse Reactions: Allergies Allergy/AdvReac Type Severity Reaction Status Date / Time No Known Allergies Allergy Verified 06/14/17 13:35 - Home Medications Home Medications: Ambulatory Orders Levothyroxine [Synthroid -] 125 mcg PO DAILY 12/18/12 Allopurinol 300 mg PO DAILY 01/31/16 Carvedilol [Coreg] 3.125 mg PO BID 07/09/16 Lisinopril [Zestril] 2.5 mg PO DAILY 07/09/16 FENTANYL 12mcg PATCH 50 mcg TD Q72H 11/14/16 Hydrocodone/Ibuprofen [Hydrocodone-Ibuprofen 7.5-200] QID PRN 12/01/16 Acyclovir [Zovirax -] 400 mg PO DAILY #30 tablet 12/05/16 Family Disease History - Family Disease History Family Disease History: CA: Brother (thyroid ca) Review of Systems - Review of Systems Constitutional: reports: Weakness Eyes: reports: No Symptoms HENT: reports: No Symptoms Neck: reports: No Symptoms Cardiovascular: reports: No Symptoms Respiratory: reports: No Symptoms Gastrointestinal: reports: No Symptoms Genitourinary: reports: No Symptoms Musculoskeletal: reports: No Symptoms Integumentary: reports: No Symptoms Neurological: reports: No Symptoms Endocrine: reports: No Symptoms Hematology/Lymphatic: reports: No Symptoms Psychiatric: reports: No Symptoms Physical Examination Vital Signs: Vital Signs Temperature 97.7 F 06/14/17 13:37 Pulse Rate 106 H 06/14/17 13:37 Respiratory Rate 15 06/14/17 13:37 Blood Pressure 138/91 06/14/17 13:37 O2 Sat by Pulse Oximetry (%) 100 06/14/17 14:25 Constitutional: Yes: Calm Eyes: Yes: Conjunctiva Clear HENT: Yes: Atraumatic Neck: Yes: Supple Cardiovascular: Yes: Regular Rate and Rhythm, S1, S2 Respiratory: Yes: Regular, CTA Bilaterally Gastrointestinal: Yes: Normal Bowel Sounds, Soft Musculoskeletal: Yes: WNL Edema: No Neurological: Yes: Alert, Oriented, Cran Nerves II-XII Intact Problem List - Problems (1) Multiple myeloma Code(s): C90.00 - MULTIPLE MYELOMA NOT HAVING ACHIEVED REMISSION Qualifiers: Multiple myeloma remission status: unspecified Qualified Code(s): C90.00 - Multiple myeloma not having achieved remission (2) Thrombocytopenia Code(s): D69.6 - THROMBOCYTOPENIA, UNSPECIFIED Assessment/Plan 61 year old female admitted with MM sent in for platelet transfusion. Plan: 1. Thrombocytopenia - Give 2 units platelets - Type and screen - CBC 20 mins post infusion - Outpt follow up next Friday w/ dr chase Visit type - Emergency Visit Emergency Visit: Yes ED Registration Date: 06/14/17 Care time: The patient presented to the Emergency Department on the above date and was hospitalized for further evaluation of their emergent condition. - New Patient This patient is new to me today: Yes Date on this admission: 06/14/17 - Critical Care Critical Care patient: No
[2017-06-14 17:12] VITALS: TEMP 98.7
[2017-06-14 20:08] VITALS: BP 122/84; PULSE 98
--- NOTE | 2017-06-15 18:02 | DS ---
Physical Exam: SUBJECTIVE: Patient seen and examined, see h and p. OBJECTIVE: Vital Signs Period Temp Pulse Resp BP Sys/Menendez Pulse Ox Last 24 Hr 98.7 F 98 18 122/84 PE See H & P Laboratory Results - last 24 hr 06/14/17 16:21 Blood Type A NEGATIVE Antibody Screen Positive H Prewarmed Antibody Srcn Negative Antibody Identification No Result Required. Antigen Identification No Result Required. HOSPITAL COURSE: Date of Admission:06/14/17 Date of Discharge: 06/15/17 Minutes to complete discharge: 37 Discharge Summary Reason For Visit: THROMBOCYTOPENIA Hospital Course: 61 year old female with Multiple Myeloma x10 years s/p 4 days of chemo, hypothyroidism sent from ED for thrombocytopenia and 2 units of platelets. Per ED record pt wants to use her PICC line to which platelets were transfused. Transfusion well tolerated, dc home with follow up next Friday. Condition: Guarded - Instructions Referrals: Juventino Herrera MD [Primary Care Provider] - Disposition: HOME - Home Medications Comprehensive Discharge Medication List: Ambulatory Orders Levothyroxine [Synthroid -] 125 mcg PO DAILY 12/18/12 Allopurinol 300 mg PO DAILY 01/31/16 Carvedilol [Coreg] 3.125 mg PO BID 07/09/16 Lisinopril [Zestril] 2.5 mg PO DAILY 07/09/16 FENTANYL 12mcg PATCH 50 mcg TD Q72H 11/14/16 Hydrocodone/Ibuprofen [Hydrocodone-Ibuprofen 7.5-200] QID PRN 12/01/16 Acyclovir [Zovirax -] 400 mg PO DAILY #30 tablet 12/05/16 Problem List - Problems (1) Multiple myeloma Code(s): C90.00 - MULTIPLE MYELOMA NOT HAVING ACHIEVED REMISSION Qualifiers: Multiple myeloma remission status: unspecified Qualified Code(s): C90.00 - Multiple myeloma not having achieved remission (2) Thrombocytopenia Code(s): D69.6 - THROMBOCYTOPENIA, UNSPECIFIED This patient is new to me today: No Emergency Visit: Yes ED Registration Date: 06/14/17 Care time: The patient presented to the Emergency Department on the above date and was hospitalized for further evaluation of their emergent condition. Critical Care patient: No - Discharge Referral Referred to [facility] No
== END 2017-06-14 20:00 | disposition home or self-care (01) ==
LOC: JER 13:33 → JERBED 14:36 → J7W 15:10
PROVIDERS: ADMIT Hospitalist; ATTEND Nurse Practitioner Acute Care
PROC: 30243R1 Transfusion of Nonautologous Platelets into Central Vein, Percutaneous Approach (ICD-10-PCS; principal; 2017-06-14)
DX: C90.00 Multiple myeloma not having achieved remission (principal); D50.9 Iron deficiency anemia, unspecified; E89.0 Postprocedural hypothyroidism; D69.6 Thrombocytopenia, unspecified
CPT/HCPCS: 36430; 36511; 86850; 86870; 86900; 86901; 86902; 99282-25; G0378; P9034; P9038

== ENCOUNTER → 2017-06-18 | Day surgery (SDC) | payer BC ==
--- NOTE | 2017-06-17 10:52 | PN ---
Progress Note (short form) - Note Progress Note: 06/07 CBC today reviewed spoke to would need PRBCs will see pt in the office on 06/18 and will arrange for PRBC
[2017-06-18 10:18] VITALS: BP 127/84; PULSE 85; TEMP 98.2
[2017-06-18 10:36] LABS: BASO % 0.6 % (0-2.0); EOS % 1.6 % (0-4.5); HEMATOCRIT 21.9 % (32.4-45.2); HEMOGLOBIN 7.2 GM/dL (10.7-15.3); LYMPH % 2.4 % (8-40); MCH 36.6 pg (25.7-33.7); MCHC 32.9 g/dl (32.0-36.0); MEAN CELL VOLUME 111.1 fl (80-96); MEAN PLT VOLUME 8.7 fl (7.5-11.1); MONO % 5.7 % (3.8-10.2); NEUT % 89.7 % (42.8-82.8); PLATELET COUNT 39 K/MM3 (134-434); RBC 1.97 M/mm3 (3.60-5.2); RDW 17.5 % (11.6-15.6); WHITE BLOOD COUNT 2.6 K/mm3 (4.0-10.0)
[2017-06-18 10:40] LABS: ADD RBC MORPHOLOGY YES
[2017-06-18 11:08] LABS: ALBUMIN 2.8 g/dl (3.4-5.0); ANION GAP 6 (8-16); BILIRUBIN,DIRECT < 0.2 mg/dL (0.0-0.2); BLOOD UREA NITROGEN 9 mg/dL (7-18); CALCIUM 7.2 mg/dL (8.5-10.1); CHLORIDE 105 mmol/L (98-107); CO2 28 mmol/L (21-32); CREATININE 0.4 mg/dL (0.55-1.02); GLUCOSE,RANDOM 95 mg/dL (74-106); MAGNESIUM 1.7 mg/dL (1.8-2.4); POTASSIUM 4.2 mmol/L (3.5-5.1); SGOT/AST 19 U/L (15-37); SGPT/ALT 17 U/L (12-78); SODIUM 139 mmol/L (136-145)
[2017-06-18 11:09] LABS: ALK PHOS 405 U/L (45-117); BILIRUBIN,TOTAL 0.3 mg/dL (0.2-1.0); TOT PROT 5.1 g/dl (6.4-8.2)
[2017-06-18 14:30] LABS: ANISOCYTOSIS 1+; MACROCYTOSIS 0; OVALOCYTE 1+; PLATELET ESTIMATE DECREASED
== END | disposition home or self-care (01) ==
LOC: JONCNONCHE 07:35
PROVIDERS: ATTEND Internal Medicine Hematology & Oncology
PROC: 0JPVXVZ Removal of Infusion Pump from Upper Extremity Subcutaneous Tissue and Fascia, External Approach (ICD-10-PCS; principal; 2017-06-18)
DX: Z53.8 Procedure and treatment not carried out for other reasons (principal)
CPT/HCPCS: 36415; 80053; 80076; 83735; 85025

== ENCOUNTER 2017-06-20 07:52 | Day surgery (SDC) | payer BC ==
--- NOTE | 2017-06-20 10:40 | HP ---
Satellite H - Chief Complaint Chief Complaint: here for PRBC transfusion. 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: Peripheral Neuropathy Cardiovascular: Yes: Hyperlipdemia Heme/Onc: Yes: Anemia, Current Chemotherapy, Current Radiation Therapy, Thrombocytopenia Musculoskeletal: Yes: Chronic low back pain, Other (left foot fracture, back , shoulder, hip pain) Endocrine: Yes: Hypothyroidism - Current Medications Current Medications: Home Medications Medication Instructions Recorded Levothyroxine [Synthroid -] 125 mcg PO DAILY 12/18/12 Allopurinol 300 mg PO DAILY 01/31/16 Carvedilol [Coreg] 3.125 mg PO BID 07/09/16 Lisinopril [Zestril] 2.5 mg PO DAILY 07/09/16 FENTANYL 12mcg PATCH 50 mcg TD Q72H 11/14/16 Hydrocodone/Ibuprofen QID PRN 12/01/16 [Hydrocodone-Ibuprofen 7.5-200] Acyclovir [Zovirax -] 400 mg PO DAILY #30 tablet 12/05/16 Satellite Physical Exam - Physical Examination General Appearance: Well Nourished, Well Developed, Alert & Oriented x3 ENT: No Discharge Lung: Clear to auscultation Heart: Regular rate & rhythm, Normal S1 Extremities: No edema Satellite Impression/Plan - Impression/Plan Impression: CBC. PrBC today. will monitor
[2017-06-20 14:30] LABS: HEMATOCRIT 22.4 % (32.4-45.2); HEMOGLOBIN 7.4 GM/dL (10.7-15.3); MCH 36.3 pg (25.7-33.7); MCHC 32.9 g/dl (32.0-36.0); MEAN CELL VOLUME 110.2 fl (80-96); MEAN PLT VOLUME 8.7 fl (7.5-11.1); RBC 2.03 M/mm3 (3.60-5.2); RDW 17.7 % (11.6-15.6); WHITE BLOOD COUNT 2.6 K/mm3 (4.0-10.0)
[2017-06-20 14:32] LABS: PLATELET COUNT 28 K/MM3 (134-434)
[2017-06-20 14:58] LABS: ALBUMIN 3.1 g/dl (3.4-5.0); ALK PHOS 495 U/L (45-117); ANION GAP 5 (8-16); BILIRUBIN,TOTAL 0.3 mg/dL (0.2-1.0); BLOOD UREA NITROGEN 11 mg/dL (7-18); CHLORIDE 105 mmol/L (98-107); CO2 28 mmol/L (21-32); CREATININE 0.6 mg/dL (0.55-1.02); GLUCOSE,RANDOM 121 mg/dL (74-106); MAGNESIUM 1.8 mg/dL (1.8-2.4); POTASSIUM 3.9 mmol/L (3.5-5.1); SGOT/AST 18 U/L (15-37); SGPT/ALT 16 U/L (12-78); SODIUM 138 mmol/L (136-145); TOT PROT 5.6 g/dl (6.4-8.2)
[2017-06-20 15:16] LABS: ANISOCYTOSIS 1+; MACROCYTOSIS 2+
[2017-06-20 15:17] LABS: OVALOCYTE 1+; PLATELET ESTIMATE DECREASED
[2017-06-20] MEDS ORDERED: MAGNESIUM SULF 50% (8.12 MEQ/2 ML-1 GM VIAL) IVPB ONE (15:31)
[2017-06-20 15:35] LABS: CALCIUM 6.9 mg/dL (8.5-10.1)
[2017-06-20 20:01] VITALS: BP 120/67; PULSE 85; TEMP 98.1
== END 2017-06-21 02:00 | disposition home or self-care (01) ==
LOC: JONCNONCHE 07:52 → J7W 10:13 → JONCNONCHE 06-21 02:00
PROVIDERS: ATTEND Internal Medicine Hematology & Oncology
PROC: 30243R1 Transfusion of Nonautologous Platelets into Central Vein, Percutaneous Approach (ICD-10-PCS; principal; 2017-06-20)
PROC: 3E043GC Introduction of Other Therapeutic Substance into Central Vein, Percutaneous Approach (ICD-10-PCS; 2017-06-20)
DX: C90.00 Multiple myeloma not having achieved remission (principal); D63.0 Anemia in neoplastic disease; D69.59 Other secondary thrombocytopenia
CPT/HCPCS: 36415; 36430; 36511; 80053; 83735; 85025; 86850; 86870; 86900; 86901; 86902; 86922; 96365; P9034; P9038

== ENCOUNTER 2017-07-01 07:35 | Day surgery (SDC) | payer BC ==
[2017-07-01] MEDS ORDERED: IRON SUCROSE INJECTION 200 MG in SODIUM CHLORIDE 100 ML IVPB ONE (10:00)
[2017-07-01] MEDS ORDERED: CYANOCOBALAMIN (VITAMIN B-12) 1000 MCG/1 ML VIAL IM ONE (10:00)
[2017-07-01] MEDS ORDERED: FOLIC ACID 1 MG TABLET (FP) PO ONE (10:00)
[2017-07-01 11:02] VITALS: TEMP 98.1
[2017-07-01 11:59] VITALS: BP 136/79; PULSE 66
[2017-07-01] MEDS ORDERED: EPOETIN ALFA 20,000 UNIT/1 ML VIAL SQ ONE (12:00)
== END 2017-07-01 11:50 | disposition home or self-care (01) ==
LOC: JONCNONCHE 07:35 → J7W 10:30 → JONCNONCHE 11:50
PROVIDERS: ATTEND Internal Medicine Hematology & Oncology
PROC: 3E033GC Introduction of Other Therapeutic Substance into Peripheral Vein, Percutaneous Approach (ICD-10-PCS; principal; 2017-07-01)
PROC: 3E013GC Introduction of Other Therapeutic Substance into Subcutaneous Tissue, Percutaneous Approach (ICD-10-PCS; 2017-07-01)
PROC: 3E023GC Introduction of Other Therapeutic Substance into Muscle, Percutaneous Approach (ICD-10-PCS; 2017-07-01)
DX: C90.00 Multiple myeloma not having achieved remission (principal)
CPT/HCPCS: 96365; 96372; 96375; 96401; J0885; J1756

== ENCOUNTER 2017-07-02 07:37 | Day surgery (SDC) | payer BC ==
[2017-07-02] MEDS ORDERED: IRON SUCROSE INJECTION 200 MG in SODIUM CHLORIDE 100 ML IVPB ONE (10:00)
[2017-07-02] MEDS ORDERED: FOLIC ACID 1 MG TABLET (FP) PO ONE (10:00)
[2017-07-02] MEDS ORDERED: CYANOCOBALAMIN (VITAMIN B-12) 1000 MCG/1 ML VIAL IM ONE (10:00)
[2017-07-02] MEDS ORDERED: EPOETIN ALFA 20,000 UNIT/1 ML VIAL SQ SCH (11:00)
[2017-07-02 12:27] VITALS: TEMP 97.7
[2017-07-02 12:35] VITALS: BP 120/88; PULSE 107
== END 2017-07-02 12:00 | disposition home or self-care (01) ==
LOC: JONCNONCHE 07:37 → J7W 10:19 → JONCNONCHE 12:00
PROVIDERS: ATTEND Internal Medicine Hematology & Oncology
PROC: 3E043GC Introduction of Other Therapeutic Substance into Central Vein, Percutaneous Approach (ICD-10-PCS; principal; 2017-07-02)
PROC: 3E013GC Introduction of Other Therapeutic Substance into Subcutaneous Tissue, Percutaneous Approach (ICD-10-PCS; 2017-07-02)
DX: C90.00 Multiple myeloma not having achieved remission (principal); D69.59 Other secondary thrombocytopenia; D70.1 Agranulocytosis secondary to cancer chemotherapy
CPT/HCPCS: 96365; 96372; J0885; J1756

== ENCOUNTER 2017-07-03 07:50 | Day surgery (SDC) | payer BC ==
[2017-07-03] MEDS ORDERED: FOLIC ACID 1 MG TABLET (FP) PO ONE (10:00)
[2017-07-03] MEDS ORDERED: CYANOCOBALAMIN (VITAMIN B-12) 1000 MCG/1 ML VIAL IM ONE (10:00)
[2017-07-03] MEDS ORDERED: IRON SUCROSE INJECTION 200 MG in SODIUM CHLORIDE 100 ML IVPB ONE (10:00)
[2017-07-03 10:35] LABS: HEMATOCRIT 23.4 % (32.4-45.2); HEMOGLOBIN 7.6 GM/dL (10.7-15.3); MCH 36.5 pg (25.7-33.7); MCHC 32.5 g/dl (32.0-36.0); MEAN CELL VOLUME 112.2 fl (80-96); MEAN PLT VOLUME 8.4 fl (7.5-11.1); PLATELET COUNT 114 K/MM3 (134-434); RBC 2.08 M/mm3 (3.60-5.2); RDW 20.3 % (11.6-15.6); WHITE BLOOD COUNT 2.4 K/mm3 (4.0-10.0)
[2017-07-03 11:03] LABS: ALBUMIN 3.7 g/dl (3.4-5.0); ALK PHOS 466 U/L (45-117); ANION GAP 6 (8-16); BILIRUBIN,DIRECT < 0.2 mg/dL (0.0-0.2); BILIRUBIN,TOTAL 0.3 mg/dL (0.2-1.0); BLOOD UREA NITROGEN 8 mg/dL (7-18); CALCIUM 8.1 mg/dL (8.5-10.1); CHLORIDE 109 mmol/L (98-107); CO2 25 mmol/L (21-32); CREATININE 0.5 mg/dL (0.55-1.02); GLUCOSE,RANDOM 81 mg/dL (74-106); MAGNESIUM 2.1 mg/dL (1.8-2.4); SGOT/AST 23 U/L (15-37); SGPT/ALT 14 U/L (12-78); SODIUM 140 mmol/L (136-145)
[2017-07-03 11:57] LABS: ANISOCYTOSIS 2+; MACROCYTOSIS 3+; PLATELET ESTIMATE DECREASED; TARGET CELLS 1+; TEAR DROP CELLS 2+
[2017-07-03] MEDS ORDERED: EPOETIN ALFA 20,000 UNIT/1 ML VIAL SQ ONE (12:00)
[2017-07-03] MEDS ORDERED: TBO-FILGRASTIM 300 MCG/0.5 ML DISP.SYRINGE SQ ONE (12:00)
[2017-07-03 12:38] VITALS: BP 122/78; PULSE 95; TEMP 98.6
== END 2017-07-03 12:30 | disposition home or self-care (01) ==
LOC: JONCNONCHE 07:50 → J7W 11:23 → JONCNONCHE 12:30
PROVIDERS: ATTEND Internal Medicine Hematology & Oncology
PROC: 3E043GC Introduction of Other Therapeutic Substance into Central Vein, Percutaneous Approach (ICD-10-PCS; principal; 2017-07-03)
PROC: 3E013NZ Introduction of Analgesics, Hypnotics, Sedatives into Subcutaneous Tissue, Percutaneous Approach (ICD-10-PCS; 2017-07-03)
DX: C90.00 Multiple myeloma not having achieved remission (principal); D69.59 Other secondary thrombocytopenia; D70.1 Agranulocytosis secondary to cancer chemotherapy
CPT/HCPCS: 36415; 80053; 80076; 83735; 85025; 96365; 96372; J0885; J1447; J1756

== ENCOUNTER 2017-07-09 07:33 | Day surgery (SDC) | payer BC ==
--- NOTE | 2017-07-09 10:36 | HP ---
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: Peripheral Neuropathy Cardiovascular: Yes: Hyperlipdemia Heme/Onc: Yes: Anemia, Current Chemotherapy, Current Radiation Therapy, Thrombocytopenia Musculoskeletal: Yes: Chronic low back pain, Other (left foot fracture, back , shoulder, hip pain) Endocrine: Yes: Hypothyroidism - Current Medications Current Medications: Home Medications Medication Instructions Recorded Levothyroxine [Synthroid -] 125 mcg PO DAILY 12/18/12 Allopurinol 300 mg PO DAILY 01/31/16 Carvedilol [Coreg] 3.125 mg PO BID 07/09/16 Lisinopril [Zestril] 2.5 mg PO DAILY 07/09/16 FENTANYL 12mcg PATCH 50 mcg TD Q72H 11/14/16 Hydrocodone/Ibuprofen QID PRN 12/01/16 [Hydrocodone-Ibuprofen 7.5-200] Acyclovir [Zovirax -] 400 mg PO DAILY #30 tablet 12/05/16 Satellite Physical Exam - Physical Examination General Appearance: Well Nourished, Well Developed, Alert & Oriented x3 Lung: Clear to auscultation Heart: Regular rate & rhythm Abdomen: Soft Satellite Impression/Plan - Impression/Plan Impression: Relpased/refractory MM. Here for PRBC transfusion. she is aware for f/u at the office
[2017-07-09 11:19] LABS: BASO % 1.8 % (0-2.0); EOS % 1.1 % (0-4.5); HEMATOCRIT 24.8 % (32.4-45.2); LYMPH % 8.4 % (8-40); MCH 37.1 pg (25.7-33.7); MCHC 32.2 g/dl (32.0-36.0); MEAN CELL VOLUME 115.5 fl (80-96); MEAN PLT VOLUME 8.5 fl (7.5-11.1); MONO % 20.3 % (3.8-10.2); NEUT % 68.4 % (42.8-82.8); PLATELET COUNT 152 K/MM3 (134-434); RBC 2.15 M/mm3 (3.60-5.2); RDW 25.1 % (11.6-15.6); WHITE BLOOD COUNT 3.2 K/mm3 (4.0-10.0)
[2017-07-09 13:33] LABS: ALBUMIN 3.2 g/dl (3.4-5.0); ANION GAP 8 (8-16); BLOOD UREA NITROGEN 10 mg/dL (7-18); CALCIUM 8.1 mg/dL (8.5-10.1); CHLORIDE 110 mmol/L (98-107); CO2 26 mmol/L (21-32); GLUCOSE,RANDOM 100 mg/dL (74-106); MAGNESIUM 1.8 mg/dL (1.8-2.4); POTASSIUM 3.3 mmol/L (3.5-5.1); SODIUM 144 mmol/L (136-145)
[2017-07-09 13:36] LABS: ALK PHOS 301 U/L (45-117); BILIRUBIN,TOTAL 0.4 mg/dL (0.2-1.0); CREATININE 0.4 mg/dL (0.55-1.02); SGOT/AST 22 U/L (15-37); SGPT/ALT 14 U/L (12-78); TOT PROT 5.3 g/dl (6.4-8.2)
[2017-07-09 22:59] LABS: HEMATOCRIT 30.5 % (32.4-45.2); HEMOGLOBIN 10.2 GM/dL (10.7-15.3); MCHC 33.6 g/dl (32.0-36.0); PLATELET COUNT 109 K/MM3 (134-434); RBC 2.93 M/mm3 (3.60-5.2); RDW 27.9 % (11.6-15.6); WHITE BLOOD COUNT 3.2 K/mm3 (4.0-10.0)
[2017-07-10 01:08] VITALS: BP 140/90; PULSE 86; TEMP 98
== END 2017-07-09 23:00 | disposition home or self-care (01) ==
LOC: JONCBLOOD 07:33 → J7W 10:26 → JONCBLOOD 23:00
PROVIDERS: ATTEND Internal Medicine Hematology & Oncology
PROC: 30233N1 Transfusion of Nonautologous Red Blood Cells into Peripheral Vein, Percutaneous Approach (ICD-10-PCS; principal; 2017-07-09)
DX: C90.00 Multiple myeloma not having achieved remission (principal); D69.59 Other secondary thrombocytopenia; D70.1 Agranulocytosis secondary to cancer chemotherapy
CPT/HCPCS: 36415; 36430; 80053; 83735; 85025; 85027; 86850; 86870; 86880; 86900; 86901; 86902; 86922; P9038; P9058

== ENCOUNTER 2017-07-30 07:18 | Day surgery (SDC) | payer BC ==
[2017-07-30] MEDS ORDERED: SODIUM CHLORIDE 250 ML IV ONE ×2 (08:00→09:10)
[2017-07-30] MEDS ORDERED: DEXAMETHASONE INJECTION 20 MG, DIPHENHYDRAMINE 50 MG in SODIUM CHLORIDE 100 ML IVPB ONE (08:30)
[2017-07-30] MEDS ORDERED: ACETAMINOPHEN 325 MG TABLET (FP) PO ONE (08:30)
[2017-07-30] MEDS ORDERED: WATER IV ONE (09:00)
[2017-07-30] MEDS ORDERED: DEXTROSE 5% IV ONE (09:00)
[2017-07-30] MEDS ORDERED: CARFILZOMIB IV ONE (09:00)
[2017-07-30] MEDS ORDERED: SODIUM CHLORIDE IVPB ONE (09:40)
[2017-07-30] MEDS ORDERED: DARATUMUMAB IVPB ONE (09:40)
[2017-07-30 13:30] LABS: BASO % 1.2 % (0-2.0); EOS % 2.2 % (0-4.5); HEMATOCRIT 36.1 % (32.4-45.2); HEMOGLOBIN 11.6 GM/dL (10.7-15.3); LYMPH % 11.6 % (8-40); MCH 33.9 pg (25.7-33.7); MCHC 32.2 g/dl (32.0-36.0); MEAN CELL VOLUME 105.3 fl (80-96); MEAN PLT VOLUME 8.4 fl (7.5-11.1); MONO % 13.3 % (3.8-10.2); NEUT % 71.7 % (42.8-82.8); PLATELET COUNT 182 K/MM3 (134-434); RBC 3.43 M/mm3 (3.60-5.2); RDW 21.8 % (11.6-15.6); WHITE BLOOD COUNT 4.8 K/mm3 (4.0-10.0)
[2017-07-30 13:43] LABS: ANION GAP 10 (8-16); BLOOD UREA NITROGEN 12 mg/dL (7-18); CALCIUM 9.1 mg/dL (8.5-10.1); CHLORIDE 110 mmol/L (98-107); CO2 23 mmol/L (21-32); CREATININE 0.6 mg/dL (0.55-1.02); GLUCOSE,RANDOM 84 mg/dL (74-106); MAGNESIUM 1.9 mg/dL (1.8-2.4); POTASSIUM 4.1 mmol/L (3.5-5.1); SODIUM 143 mmol/L (136-145)
[2017-07-30 18:36] VITALS: TEMP 98.3
[2017-07-30 20:00] VITALS: BP 131/84; PULSE 86
== END 2017-07-30 20:38 | disposition home or self-care (01) ==
LOC: JONCCHEMO 07:18 → J7W 14:50 → JONCCHEMO 20:38
PROVIDERS: ATTEND Internal Medicine Hematology & Oncology
DX: Z51.11 Encounter for antineoplastic chemotherapy (principal); C90.00 Multiple myeloma not having achieved remission; D69.59 Other secondary thrombocytopenia; D70.1 Agranulocytosis secondary to cancer chemotherapy
CPT/HCPCS: 36415; 80048; 83735; 85025; 96361; 96367; 96375; 96411; 96413; 96415; 96417; J1100; J9047; J9145

== ENCOUNTER 2017-07-31 07:26 | Day surgery (SDC) | payer BC ==
[2017-07-31] MEDS ORDERED: SODIUM CHLORIDE 250 ML IV ONE ×2 (08:00→09:30)
[2017-07-31] MEDS ORDERED: DEXAMETHASONE INJECTION 20 MG in SODIUM CHLORIDE 100 ML IVPB ONE (08:30)
[2017-07-31] MEDS ORDERED: WATER IV ONE (09:00)
[2017-07-31] MEDS ORDERED: DEXTROSE 5% IV ONE (09:00)
[2017-07-31] MEDS ORDERED: CARFILZOMIB IV ONE (09:00)
[2017-07-31 18:26] VITALS: BP 143/89; PULSE 79
[2017-07-31 18:27] VITALS: TEMP 97.6
== END 2017-07-31 18:27 | disposition home or self-care (01) ==
LOC: JONCCHEMO 07:26 → J7W 15:15 → JONCCHEMO 18:27
PROVIDERS: ATTEND Internal Medicine Hematology & Oncology
DX: Z51.11 Encounter for antineoplastic chemotherapy (principal); C90.00 Multiple myeloma not having achieved remission; D69.59 Other secondary thrombocytopenia; D70.1 Agranulocytosis secondary to cancer chemotherapy
CPT/HCPCS: 96367; 96375; 96413; J1100; J9047

== ENCOUNTER 2017-08-06 07:31 | Day surgery (SDC) | payer BC ==
[2017-08-06] MEDS ORDERED: SODIUM CHLORIDE 250 ML IV ONE ×2 (08:00→09:10)
[2017-08-06] MEDS ORDERED: DEXAMETHASONE INJECTION 20 MG, DIPHENHYDRAMINE 50 MG in SODIUM CHLORIDE 100 ML IVPB ONE (08:30)
[2017-08-06] MEDS ORDERED: ACETAMINOPHEN 325 MG TABLET (FP) PO ONE (08:30)
[2017-08-06] MEDS ORDERED: CARFILZOMIB IV ONE (09:00)
[2017-08-06] MEDS ORDERED: WATER IV ONE (09:00)
[2017-08-06] MEDS ORDERED: DEXTROSE 5% IV ONE (09:00)
[2017-08-06] MEDS ORDERED: SODIUM CHLORIDE IVPB ONE (10:00)
[2017-08-06] MEDS ORDERED: DARATUMUMAB IVPB ONE (10:00)
[2017-08-06 10:25] LABS: BASO % 0.5 % (0-2.0); EOS % 1.6 % (0-4.5); HEMATOCRIT 35.1 % (32.4-45.2); HEMOGLOBIN 11.6 GM/dL (10.7-15.3); LYMPH % 5.2 % (8-40); MCH 33.7 pg (25.7-33.7); MCHC 32.9 g/dl (32.0-36.0); MEAN CELL VOLUME 102.4 fl (80-96); MONO % 13.3 % (3.8-10.2); NEUT % 79.4 % (42.8-82.8); PLATELET COUNT 143 K/MM3 (134-434); RBC 3.43 M/mm3 (3.60-5.2); RDW 20.8 % (11.6-15.6); WHITE BLOOD COUNT 5.7 K/mm3 (4.0-10.0)
[2017-08-06 10:54] LABS: ANION GAP 11 (8-16); BILIRUBIN,DIRECT 0.2 mg/dL (0.0-0.2); BLOOD UREA NITROGEN 8 mg/dL (7-18); CALCIUM 8.7 mg/dL (8.5-10.1); CHLORIDE 108 mmol/L (98-107); CO2 21 mmol/L (21-32); CREATININE 0.6 mg/dL (0.55-1.02); GLUCOSE,RANDOM 107 mg/dL (74-106); MAGNESIUM 1.8 mg/dL (1.8-2.4); POTASSIUM 3.4 mmol/L (3.5-5.1); SGOT/AST 20 U/L (15-37); SGPT/ALT 16 U/L (12-78); SODIUM 140 mmol/L (136-145)
[2017-08-06 10:56] LABS: ALK PHOS 171 U/L (45-117); TOT PROT 6.2 g/dl (6.4-8.2)
[2017-08-06 14:31] VITALS: BP 118/68; PULSE 92; TEMP 98.5
== END 2017-08-06 22:19 | disposition home or self-care (01) ==
LOC: JONCCHEMO 07:31 → J7W 12:15 → JONCCHEMO 22:19
PROVIDERS: ATTEND Internal Medicine Hematology & Oncology
DX: Z51.11 Encounter for antineoplastic chemotherapy (principal); D69.59 Other secondary thrombocytopenia; D70.1 Agranulocytosis secondary to cancer chemotherapy
CPT/HCPCS: 36415; 80053; 80076; 83735; 85025; 96361; 96375; 96409; J1100; J9047

== ENCOUNTER 2017-08-07 07:37 | Day surgery (SDC) | payer BC ==
[2017-08-07] MEDS ORDERED: SODIUM CHLORIDE 250 ML IV ONE ×2 (08:00→09:10)
[2017-08-07] MEDS ORDERED: DEXAMETHASONE INJECTION 20 MG in SODIUM CHLORIDE 100 ML IVPB ONE (08:30)
[2017-08-07] MEDS ORDERED: CARFILZOMIB IV ONE (09:00)
[2017-08-07] MEDS ORDERED: DEXTROSE 5% IV ONE (09:00)
[2017-08-07] MEDS ORDERED: WATER IV ONE (09:00)
[2017-08-07 18:26] VITALS: TEMP 98
[2017-08-07 18:35] VITALS: BP 143/77; PULSE 90
== END 2017-08-07 18:00 | disposition home or self-care (01) ==
LOC: JONCCHEMO 07:37 → J7W 16:16 → JONCCHEMO 18:00
PROVIDERS: ATTEND Internal Medicine Hematology & Oncology
PROC: 3E03305 Introduction of Other Antineoplastic into Peripheral Vein, Percutaneous Approach (ICD-10-PCS; principal; 2017-08-07)
PROC: 3E033GC Introduction of Other Therapeutic Substance into Peripheral Vein, Percutaneous Approach (ICD-10-PCS; 2017-08-07)
PROC: 3E033GC Introduction of Other Therapeutic Substance into Peripheral Vein, Percutaneous Approach (ICD-10-PCS; 2017-08-07)
DX: Z51.11 Encounter for antineoplastic chemotherapy (principal); C90.00 Multiple myeloma not having achieved remission; D69.59 Other secondary thrombocytopenia; D70.1 Agranulocytosis secondary to cancer chemotherapy
CPT/HCPCS: 96361; 96367; 96375; 96413; J1100; J9047

== ENCOUNTER 2017-08-14 07:38 | Day surgery (SDC) | payer BC ==
[2017-08-14] MEDS ORDERED: ZOLEDRONIC ACID 4 MG in SODIUM CHLORIDE 100 ML IVPB ONE (09:00)
[2017-08-14] MEDS ORDERED: SODIUM CHLORIDE 250 ML IV ONE ×2 (09:00→11:00)
[2017-08-14] MEDS ORDERED: DEXAMETHASONE INJECTION 20 MG in SODIUM CHLORIDE 100 ML IVPB ONE (10:00)
[2017-08-14] MEDS ORDERED: CARFILZOMIB IV ONE (10:30)
[2017-08-14] MEDS ORDERED: DEXTROSE 5% IV ONE (10:30)
[2017-08-14] MEDS ORDERED: WATER IV ONE (10:30)
[2017-08-14 18:52] VITALS: TEMP 97.7
[2017-08-14 18:53] VITALS: BP 153/78; PULSE 81
== END 2017-08-14 18:55 | disposition home or self-care (01) ==
LOC: JONCCHEMO 07:38 → J7W 16:50 → JONCCHEMO 18:55
PROVIDERS: ATTEND Internal Medicine Hematology & Oncology
PROC: 3E03305 Introduction of Other Antineoplastic into Peripheral Vein, Percutaneous Approach (ICD-10-PCS; principal; 2017-08-14)
PROC: 3E033GC Introduction of Other Therapeutic Substance into Peripheral Vein, Percutaneous Approach (ICD-10-PCS; 2017-08-14)
DX: Z51.11 Encounter for antineoplastic chemotherapy (principal); C90.00 Multiple myeloma not having achieved remission; D69.59 Other secondary thrombocytopenia; D70.1 Agranulocytosis secondary to cancer chemotherapy
CPT/HCPCS: 96361; 96375; 96413; 96417; J1100; J3489; J9047

== ENCOUNTER 2017-08-20 07:38 | Day surgery (SDC) | payer BC ==
[2017-08-20] MEDS ORDERED: SODIUM CHLORIDE 250 ML IV ONE (09:00)
[2017-08-20] MEDS ORDERED: ACETAMINOPHEN 325 MG TABLET (FP) PO ONE (10:00)
[2017-08-20] MEDS ORDERED: DIPHENHYDRAMINE 50 MG, DEXAMETHASONE INJECTION 20 MG in SODIUM CHLORIDE 100 ML IVPB ONE (10:00)
[2017-08-20] MEDS ORDERED: SODIUM CHLORIDE IVPB ONE (10:30)
[2017-08-20] MEDS ORDERED: DARATUMUMAB IVPB ONE (10:30)
[2017-08-20 11:03] LABS: BASO % 0.5 % (0-2.0); EOS % 0.9 % (0-4.5); HEMOGLOBIN 10.5 GM/dL (10.7-15.3); LYMPH % 3.5 % (8-40); MCH 33.6 pg (25.7-33.7); MCHC 32.8 g/dl (32.0-36.0); MEAN CELL VOLUME 102.7 fl (80-96); MEAN PLT VOLUME 8.3 fl (7.5-11.1); NEUT % 76.1 % (42.8-82.8); PLATELET COUNT 38 K/MM3 (134-434); RBC 3.12 M/mm3 (3.60-5.2); RDW 19.6 % (11.6-15.6); WHITE BLOOD COUNT 3.5 K/mm3 (4.0-10.0)
[2017-08-20 11:37] LABS: ALBUMIN 3.4 g/dl (3.4-5.0); ANION GAP 11 (8-16); BILIRUBIN,DIRECT 0.2 mg/dL (0.0-0.2); BILIRUBIN,TOTAL 0.8 mg/dL (0.2-1.0); BLOOD UREA NITROGEN 8 mg/dL (7-18); CALCIUM 7.9 mg/dL (8.5-10.1); CHLORIDE 104 mmol/L (98-107); CO2 27 mmol/L (21-32); CREATININE 0.6 mg/dL (0.55-1.02); GLUCOSE,RANDOM 86 mg/dL (74-106); MAGNESIUM 2.2 mg/dL (1.8-2.4); SGOT/AST 27 U/L (15-37); SGPT/ALT 16 U/L (12-78); SODIUM 142 mmol/L (136-145); TOT PROT 6.2 g/dl (6.4-8.2)
[2017-08-20 11:38] LABS: ALK PHOS 124 U/L (45-117)
[2017-08-20 20:01] VITALS: TEMP 98
[2017-08-20 20:07] VITALS: PULSE 80
[2017-08-20 20:08] VITALS: BP 161/91
== END 2017-08-20 20:05 | disposition home or self-care (01) ==
LOC: JONCCHEMO 07:38 → J7W 13:21 → JONCCHEMO 20:05
PROVIDERS: ATTEND Internal Medicine Hematology & Oncology
PROC: 3E04305 Introduction of Other Antineoplastic into Central Vein, Percutaneous Approach (ICD-10-PCS; principal; 2017-08-20)
PROC: 3E043GC Introduction of Other Therapeutic Substance into Central Vein, Percutaneous Approach (ICD-10-PCS; 2017-08-20)
PROC: 3E0437Z Introduction of Electrolytic and Water Balance Substance into Central Vein, Percutaneous Approach (ICD-10-PCS; 2017-08-20)
DX: Z51.11 Encounter for antineoplastic chemotherapy (principal); C90.00 Multiple myeloma not having achieved remission
CPT/HCPCS: 36415; 80053; 80076; 83735; 85025; 96361; 96367; 96375; 96413; 96415; J1100; J9145

== ENCOUNTER 2017-09-05 15:00 | Day surgery (SDC) | payer BC ==
[2017-09-04 13:29] VITALS: BMI 18.9
[2017-09-05] MEDS ORDERED: ceFAZolin SODIUM 1 GM VIAL ONE (15:52)
[2017-09-05] MEDS ORDERED: PROMETHAZINE HCL 25 MG/1 ML VIAL IVPUSH PRN (16:56)
[2017-09-05] MEDS ORDERED: ONDANSETRON 4 MG/2 ML VIAL IVPUSH PRN (16:56)
[2017-09-05] MEDS ORDERED: LACTATED RINGERS SOLUTION 1,000 ML IV SCH (17:00)
[2017-09-05] MEDS ORDERED: PROPOFOL 20 ML ONE (17:05)
[2017-09-05] MEDS ORDERED: MIDAZOLAM HCL 2 MG/2 ML SINGLE DOSE VIAL ONE (17:05)
[2017-09-05] MEDS ORDERED: LIDOCAINE HCL/PF 2% SDV 5ML VIAL ONE (17:06)
[2017-09-05] MEDS ORDERED: SODIUM CHLORIDE 0.9% P/F 10 ML VIAL IJ ONE (17:06)
[2017-09-05] MEDS ORDERED: ceFAZolin SODIUM 1 GM VIAL IVPB ONE (17:14)
[2017-09-05] MEDS ORDERED: DEXAMETHASONE SOD PHOSPHATE 4 MG/1 ML VIAL ONE (17:17)
[2017-09-05] MEDS ORDERED: LIDOCAINE HCL 1%, 10 MG/ML (20ML VIAL) INF ONE ×2 (17:35)
[2017-09-05] MEDS ORDERED: KETOROLAC TROMETHAMINE 30 MG/1 ML VIAL ONE (18:19)
--- NOTE | 2017-09-05 18:26 | OP ---
Operative Note - Note: Operative Date: 09/05/17 Pre-Operative Diagnosis: Multiple Myeloma Operation: Placement Portacath Findings: Patent left external jugular vein Implants: Double lumen Portacath Post-Operative Diagnosis: Same as Pre-op Surgeon: Agustin Murphy Anesthesiologist/CARDIOLOGY NURSE PRACTITIONER: Eamon Lema Anesthesia: Fractional Estimated Blood Loss (mls): 20
[2017-09-05] MEDS ORDERED: oxyCODONE HCL 5 MG TABLET PO PRN (18:36)
[2017-09-05] MEDS ORDERED: ACETAMINOPHEN 325 MG TABLET (FP) PO PRN (18:36)
[2017-09-05 20:05] VITALS: BP 142/77; PULSE 68; TEMP 98.3
--- NOTE | 2017-09-06 11:32 | OP ---
DATE OF OPERATION: 09/05/2017 PROCEDURE: Placement of Port-A-Cath. PREOPERATIVE DIAGNOSIS: Multiple myeloma. POSTOPERATIVE DIAGNOSIS: Multiple myeloma. ANESTHESIA: Fractional. ANESTHESIOLOGIST: Eamon Lema MD OPERATIVE FINDINGS: The left external jugular vein was patent in the neck. No internal jugular was seen on the left side. OPERATIVE PROCEDURE: Following routine patient identification with side and site verification, intravenous sedation was established. The left neck and chest and upper abdomen was prepped with ChloraPrep. Then 1% lidocaine was infiltrated in the left neck. Using duplex imaging, the left external jugular vein was identified and was cannulated with a micropuncture needle through the skin under ultrasound guidance. A fine wire was passed proximally into the superior vena cava. The needle was exchanged for a 5-Albanian catheter. An angle-tipped guidewire was then advanced through the catheter and positioned in the inferior vena cava. Due to the patient's history of chest wall radiation, decision was made to place the port in an inframammary position. Then 1% lidocaine was infiltrated inferior to the left breast over the left ribs. A skin incision was made. Subcutaneous tissues were then divided using cautery for hemostasis. A pocket for a double-lumen port was then created. A middle internal security manager was then passed from the port incision towards the chest, and a small counter incision was made in the left upper chest wall. A double-lumen port catheter was attached to the tunneler and pulled through the tunnel and then was repassed from the counter incision up to the neck incision. When the internal security manager was removed, the tip of the catheter was seem to be visually damaged, and it had to be replaced with a new catheter from a separate kit. This was done over a stiff wire so as to not use the tunneler again. The introducer was then placed over the wire in the neck and advanced into the superior vena cava. The wire and the dilator were removed. The tip of the catheter was advanced through the introducer, which was peeled away. The catheter tip was positioned at the juncture at the superior vena cava and right atrium. The catheter was then trimmed and the port attached using the plastic attachment device. The port was then placed into the pocket, and each lumen was aspirated for blood and flushed with saline and heparin solution. The catheter tip was checked on x-ray and was found to be in good position. All incisions were then closed with interrupted sutures of 3-0 Vicryl and subcutaneous tissues, and the port incision was closed with a subcuticular suture of 4-0 Biosyn. A sterile dressing was applied to all incisions, and the patient was taken to the recovery room in stable condition. ROSSANA STRANGE M.D. [id number]
== END 2017-09-05 19:30 | disposition home or self-care (01) ==
LOC: JASU-SURG 15:00
PROVIDERS: ATTEND Surgery
PROC: B518ZZA Fluoroscopy of Superior Vena Cava, Guidance (ICD-10-PCS; 2017-09-05)
PROC: 02HV33Z Insertion of Infusion Device into Superior Vena Cava, Percutaneous Approach (ICD-10-PCS; principal; 2017-09-05 16:30)
DX: C90.00 Multiple myeloma not having achieved remission (principal)
CPT/HCPCS: 36561; 77001; C1751; 71045-TC-FY; 76000-TC-FY; 94760; J1644

== ENCOUNTER 2017-09-08 07:21 | Inpatient (IN) | payer BC ==
[~2017-09-08 07:21] MED LIST changes: -IMIPENEM/CILASTATIN SODIUM 250 MG in SODIUM CHLORIDE 100 ML IVPB SCH; +SODIUM CHLORIDE 1,000 ML IV SCH
[2017-09-08] MEDS ORDERED: DEXAMETHASONE IVPB ONE (09:30)
[2017-09-08] MEDS ORDERED: SODIUM CHLORIDE IVPB ONE ×2 (09:30→10:00)
[2017-09-08] MEDS ORDERED: ONDANSETRON IVPB ONE (09:30)
[2017-09-08] MEDS ORDERED: DOXORUBICIN HCL IVPB ONE (10:00)
[2017-09-08] MEDS ORDERED: CISPLATIN IV ONE (10:00)
[2017-09-08] MEDS ORDERED: CYCLOPHOSPHAMIDE IVPB ONE (10:00)
[2017-09-08] MEDS ORDERED: ETOPOSIDE IV ONE (10:00)
[2017-09-08] MEDS ORDERED: SODIUM CHLORIDE IV ONE (10:00)
[2017-09-08] MEDS ORDERED: SODIUM CHLORIDE 500 ML IV ONE (16:15)
[2017-09-08 16:18] LABS: EOS % 0.1 % (0-4.5); HEMATOCRIT 30.7 % (32.4-45.2); HEMOGLOBIN 10.4 GM/dL (10.7-15.3); LYMPH % 3.2 % (8-40); MCH 35.8 pg (25.7-33.7); MCHC 33.8 g/dl (32.0-36.0); MEAN CELL VOLUME 105.8 fl (80-96); MEAN PLT VOLUME 8.6 fl (7.5-11.1); MONO % 14.9 % (3.8-10.2); NEUT % 81.8 % (42.8-82.8); PLATELET COUNT 109 K/MM3 (134-434); RDW 20.7 % (11.6-15.6); WHITE BLOOD COUNT 4.7 K/mm3 (4.0-10.0)
[2017-09-08 16:39] LABS: CHLORIDE 99 mmol/L (98-107); POTASSIUM 4.1 mmol/L (3.5-5.1); SODIUM 134 mmol/L (136-145)
[2017-09-08 17:07] LABS: ALBUMIN 3.2 g/dl (3.4-5.0); ALK PHOS 80 U/L (45-117); ANION GAP 7 (8-16); BILIRUBIN,TOTAL 0.5 mg/dL (0.2-1.0); BLOOD UREA NITROGEN 30 mg/dL (7-18); CALCIUM 8.7 mg/dL (8.5-10.1); CO2 28 mmol/L (21-32); CREATININE 0.5 mg/dL (0.55-1.02); GLUCOSE,RANDOM 90 mg/dL (74-106); SGOT/AST 47 U/L (15-37); SGPT/ALT 20 U/L (12-78); TOT PROT 6.7 g/dl (6.4-8.2)
[2017-09-08] MEDS: SODIUM CHLORIDE 1,000 ML IV SCH (18:04)
[2017-09-08] MEDS ORDERED: ACETAMINOPHEN 325 MG TABLET (FP) PO PRN (18:20)
[2017-09-08 19:23] VITALS: BMI 19.1
[2017-09-08] MEDS: CARVEDILOL 3.125 MG TABLET (FP) PO SCH (22:05)
--- NOTE | 2017-09-08 22:31 | HP ---
History and Physical History and Physical: Patient welll known to our service. 62 y/o with myeloma, who is here for elective chemotherapy with D-PACE. she has Lt. orbital pain and generalized body acches. No fever/chills/gi/gu/ resp. symptoms. She had abdominal port placed on Friday Last Vital Signs Temp Pulse Resp BP Pulse Ox 99 F 92 H 20 146/74 96 09/08/17 18:20 09/08/17 18:20 09/08/17 18:20 09/08/17 18:20 09/08/17 14:43 Cor: RSR, No murmurs, No gallops Lungs: Clear to P&A Abd: Soft, Normal bowel sounds, No organomegaly Ext:No significant edema Abnormal Lab Results 09/08/17 09/08/17 15:20 15:20 RBC 2.90 L Hgb 10.4 L D Hct 30.7 L MCV 105.8 H MCH 35.8 H RDW 20.7 H Plt Count 109 L Lymphocytes % 3.2 L D Monocytes % 14.9 H Sodium 134 L Anion Gap 7 L BUN 30 H Creatinine 0.5 L AST 47 H Albumin 3.2 L Home Medication List Medication Instructions Recorded Confirmed Type Levothyroxine [Synthroid -] 125 mcg PO DAILY 12/18/12 09/08/17 History Allopurinol 300 mg PO DAILY 01/31/16 09/08/17 History Carvedilol [Coreg] 3.125 mg PO BID 07/09/16 09/08/17 History Lisinopril [Zestril] 2.5 mg PO DAILY 07/09/16 09/08/17 History Hydrocodone/Ibuprofen 1 tab PO QID PRN 12/01/16 09/08/17 History [Hydrocodone-Ibuprofen 7.5-200] FENTANYL 25mcg PATCH [DURAGESIC 100 mcg TD Q72H 09/04/17 09/08/17 History 25mcg PATCH -] Ranitidine [Zantac -] 150 mg PO DAILY 09/08/17 09/08/17 History Active Medications Generic Name Dose Route Start Last Admin Trade Name Freq PRN Reason Stop Dose Admin Acetaminophen 650 mg 09/08/17 18:20 Tylenol - PO Q6H PRN PAIN 6-10 Acyclovir 400 mg 09/09/17 10:00 Zovirax - PO DAILY TANIYA Allopurinol 300 mg 09/09/17 10:00 Zyloprim - PO DAILY TANIYA Carvedilol 3.125 mg 09/08/17 22:00 09/08/17 22:05 Coreg - PO 3.125 mg BID TANIYA Administration Diphenhydramine HCl 25 mg 09/08/17 19:30 Benadryl Injection - IVPB Q6H PRN itching Cisplatin 16 mg/ Etoposide 45 1,018.25 mls @ 42.427 mls/hr 09/08/17 10:00 18:04 mg/ Sodium Chloride IV 09/09/17 09:59 42.427 mls/hr ONCE ONE Administration Cyclophosphamide 480 mg/ 1,030 mls @ 42.917 mls/hr 09/08/17 10:00 09/08/17 18 :02 Doxorubicin HCl 12 mg/ Sodium IVPB 09/09/17 09:59 42.917 mls/hr Chloride ONCE ONE Administration Cisplatin 16 mg/ Etoposide 45 1,018.25 mls @ 42.427 mls/hr 09/09/17 14:00 mg/ Sodium Chloride IV 09/10/17 13:59 ONCE ONE Cyclophosphamide 480 mg/ 1,030 mls @ 42.917 mls/hr 09/09/17 14:00 Doxorubicin HCl 12 mg/ Sodium IVPB 09/10/17 13:59 Chloride ONCE ONE Sodium Chloride 1,000 mls @ 60 mls/hr 09/08/17 18:15 09/08/17 18:04 Normal Saline - IV 60 mls/hr ASDIR [facility] Administration Levothyroxine Sodium 125 mcg 09/09/17 07:00 Synthroid - PO DAILY@0700 [facility] Lisinopril 2.5 mg 09/09/17 10:00 Prinivil PO DAILY [facility] Ondansetron HCl 8 mg 09/08/17 19:14 Zofran Injection IVPB Q12H PRN NAUSEA Oxycodone HCl 10 mg 09/08/17 18:20 Roxicodone - PO Q6H PRN PAIN 6-10 Ranitidine HCl 150 mg 09/09/17 10:00 Zantac - PO DAILY TANIYA a/p 62 y/o with myeloma s/p ivc port placement here for elective chemotherapy with D-PACE gentle hydration/allopurinol monitor CMP/LDH/uric acid acyclovir prophy will need bactrim or mepron at d/c neupogen support at d/c
[2017-09-09] MEDS: LEVOTHYROXINE NA 125 MCG TABLET (FP) PO SCH (06:05)
[2017-09-09] MEDS: oxyCODONE HCL 5 MG TABLET PO PRN (06:08)
[2017-09-09 08:09] LABS: URIC ACID 4.2 mg/dL (2.6-7.2)
[2017-09-09] MEDS ORDERED: ASPIRIN 81 MG CHEWABLE TABLETS PO SCH (10:00)
[2017-09-09] MEDS ORDERED: PT OWN MED DRAWER 7, Y5N ONE ×2 (10:09→15:58)
[2017-09-09] MEDS: ALLOPURINOL 300 MG TABLET (FP) PO SCH (10:11)
[2017-09-09] MEDS: CARVEDILOL 3.125 MG TABLET (FP) PO SCH ×2 (10:13→22:47)
[2017-09-09] MEDS: ONDANSETRON 4 MG/2 ML VIAL IVPB PRN (10:14)
[2017-09-09] MEDS: ACYCLOVIR 400 MG TABLET PO SCH (10:14)
[2017-09-09] MEDS: LISINOPRIL 5 MG TABLET (FP) PO SCH (10:14)
[2017-09-09] MEDS: RANITIDINE HCL 150 MG TABLET (FP) PO SCH (10:14)
[2017-09-09] MEDS ORDERED: FENTANYL PATCH WASTE TD PRN (13:10)
[2017-09-09] MEDS ORDERED: ETOPOSIDE IV ONE (14:00)
[2017-09-09] MEDS ORDERED: SODIUM CHLORIDE IV ONE (14:00)
[2017-09-09] MEDS ORDERED: CISPLATIN IV ONE (14:00)
[2017-09-09] MEDS ORDERED: CYCLOPHOSPHAMIDE IVPB ONE (14:00)
[2017-09-09] MEDS ORDERED: SODIUM CHLORIDE IVPB ONE (14:00)
[2017-09-09] MEDS ORDERED: DOXORUBICIN HCL IVPB ONE (14:00)
--- NOTE | 2017-09-09 15:55 | PN ---
Progress Note (short form) - Note Progress Note: Patient seen and examined Complains of pain diffusely Left orbital area raised and left eye closure Skull with bone lesions LE weakness L>R Last Vital Signs Temp Pulse Resp BP Pulse Ox 98 F 73 20 145/72 96 09/09/17 06:00 09/09/17 06:00 09/09/17 06:00 09/09/17 06:00 09/08/17 21:00 HEENT: skull lesions- 4 x 3.5 ; left eye-lid closure , erythema Oropharynx: No thrush, No mucositis Cor: RSR, No murmurs, No gallops Lungs: Clear to P&A; poor inspiratory effort Abd: Soft, Normal bowel sounds, No organomegaly, distended, ? fluid Ext:No significant edema distended, port in place abdominal wall Skin: numerous ecchymoses Neuro- reddy full to confrontation LLE weakness proximal and extensors CBC, BMP 09/08/17 15:20 09/08/17 15:20 Current Medications Generic Name Dose Route Start Last Admin Trade Name Freq PRN Reason Stop Dose Admin Acetaminophen 650 mg 09/08/17 18:20 Tylenol - PO Q6H PRN PAIN 6-10 Acyclovir 400 mg 09/09/17 10:00 09/09/17 10:14 Zovirax - PO 400 mg DAILY TANIYA Administration Allopurinol 300 mg 09/09/17 10:00 09/09/17 10:11 Zyloprim - PO 300 mg DAILY TANIYA Administration Carvedilol 3.125 mg 09/08/17 22:00 09/09/17 10:13 Coreg - PO 3.125 mg BID TANIYA Administration Diphenhydramine HCl 25 mg 09/08/17 19:30 Benadryl Injection - IVPB Q6H PRN itching Fentanyl 1 patch 09/09/17 13:15 Duragesic 100mcg Patch - TD 09/16/17 13:11 Q72H TANIYA Cisplatin 16 mg/ Etoposide 45 1,018.25 mls @ 42.427 mls/hr 09/09/17 14:00 mg/ Sodium Chloride IV 09/10/17 13:59 ONCE ONE Cyclophosphamide 480 mg/ 1,030 mls @ 42.917 mls/hr 09/09/17 14:00 Doxorubicin HCl 12 mg/ Sodium IVPB 09/10/17 13:59 Chloride ONCE ONE Sodium Chloride 1,000 mls @ 60 mls/hr 09/08/17 18:15 09/08/17 18:04 Normal Saline - IV 60 mls/hr ASDIR TANIYA Administration Cisplatin 16 mg/ Etoposide 45 1,018.25 mls @ 42.427 mls/hr 09/10/17 15:00 mg/ Sodium Chloride IV 09/11/17 14:59 ONCE ONE Cyclophosphamide 480 mg/ 1,030 mls @ 42.917 mls/hr 09/10/17 15:00 Doxorubicin HCl 12 mg/ Sodium IVPB 09/11/17 14:59 Chloride ONCE ONE Levothyroxine Sodium 125 mcg 09/09/17 07:00 09/09/17 06:05 Synthroid - PO 125 mcg DAILY@0700 TANIYA Administration Lisinopril 2.5 mg 09/09/17 10:00 09/09/17 10:14 Prinivil PO 2.5 mg DAILY TANIYA Administration Miscellaneous 1 each 09/09/17 13:10 Duragesic Patch Waste TD PRN PRN PAIN Ondansetron HCl 8 mg 09/08/17 19:14 09/09/17 10:14 Zofran Injection IVPB 8 mg Q12H PRN Administration NAUSEA Oxycodone HCl 10 mg 09/08/17 18:20 09/09/17 06:08 Roxicodone - PO 10 mg Q6H PRN Administration PAIN 6-10 Ranitidine HCl 150 mg 09/09/17 10:00 09/09/17 10:14 Zantac - PO 150 mg DAILY TANIYA Administration Impression : Myeloma- not in remission Infusional chemotherapy Decadron Analgesics Plan: Morphine Decadron RT Opthalmology Chemotherapy
[2017-09-09] MEDS ORDERED: morphine SULFATE 4 MG/ML VIAL IVPUSH PRN (15:58)
[2017-09-09] MEDS ORDERED: morphine SULFATE 4 MG/ML VIAL ONE (16:04)
[2017-09-09] MEDS ORDERED: DEXAMETHASONE SOD PHOSPHATE 10 MG/1 ML VIAL ONE (16:22)
[2017-09-09] MEDS: fentaNYL 100mcg/hr PATCH.TD72 TD SCH (18:12)
[2017-09-09] MEDS: SODIUM CHLORIDE 1,000 ML IV SCH (19:20)
[2017-09-09] MEDS: DEXAMETHASONE SOD PHOSPHATE 10 MG/1 ML VIAL IVPB SCH (22:47)
[2017-09-09] MEDS: SENNOSIDES/DOCUSATE COMBO (SENNA PLUS) TABLET (UD) PO SCH (22:47)
[2017-09-10] MEDS: oxyCODONE HCL 5 MG TABLET PO PRN (00:14)
[2017-09-10] MEDS: SODIUM CHLORIDE 1,000 ML IV SCH ×2 (01:48→18:35)
[2017-09-10] MEDS: LEVOTHYROXINE NA 125 MCG TABLET (FP) PO SCH (06:12)
--- NOTE | 2017-09-10 08:00 | PN ---
Progress Note (short form) - Note Progress Note: Patient seen and examined CC: Complains of pain in back of throat -->Thrush No bowel movements as yet Pain somewhat improved overall Left eye somewhat improved No chest pain or SOB Some back pains Last Vital Signs Temp Pulse Resp BP Pulse Ox 97.9 F 75 20 152/74 97 09/10/17 06:00 09/10/17 06:00 09/10/17 06:00 09/10/17 06:00 09/09/17 21:00 HEENT: Left eye closed ; skull lesion decrease to 36 x 25 Oropharynx: thrush, coated tongue Cor: RSR, No murmurs, No gallops Lungs: Clear to P&A, diminished breath sounds Abd: Soft, Normal bowel sounds, No organomegaly, distended Ext:No significant edema Skin: No rashes, Integument intact, numerous ecchymoses Port- left abdominal wall Labs pending Current Medications Generic Name Dose Route Start Last Admin Trade Name Freq PRN Reason Stop Dose Admin Acetaminophen 650 mg 09/08/17 18:20 Tylenol - PO Q6H PRN PAIN 6-10 Acyclovir 400 mg 09/09/17 10:00 09/09/17 10:14 Zovirax - PO 400 mg DAILY TANIYA Administration Allopurinol 300 mg 09/09/17 10:00 09/09/17 10:11 Zyloprim - PO 300 mg DAILY TANIYA Administration Carvedilol 3.125 mg 09/08/17 22:00 09/09/17 22:47 Coreg - PO 3.125 mg BID TANIYA Administration Dexamethasone Sodium Phosphate 20 mg 09/09/17 22:00 09/09/17 22:47 Decadron Injection - IVPB 20 mg BID TANIYA Administration Diphenhydramine HCl 25 mg 09/08/17 19:30 Benadryl Injection - IVPB Q6H PRN itching Fentanyl 1 patch 09/09/17 13:15 09/09/17 18:12 Duragesic 100mcg Patch - TD 09/16/17 13:11 1 patch Q72H TANIYA Administration Cisplatin 16 mg/ Etoposide 45 1,018.25 mls @ 42.427 mls/hr 09/09/17 14:00 18:08 mg/ Sodium Chloride IV 09/10/17 13:59 42.427 mls/hr ONCE ONE Administration Cyclophosphamide 480 mg/ 1,030 mls @ 42.917 mls/hr 09/09/17 14:00 09/09/17 18 :13 Doxorubicin HCl 12 mg/ Sodium IVPB 09/10/17 13:59 42.917 mls/hr Chloride ONCE ONE Administration Sodium Chloride 1,000 mls @ 60 mls/hr 09/08/17 18:15 09/10/17 01:48 Normal Saline - IV 60 mls/hr ASDIR TANIYA Administration Cisplatin 16 mg/ Etoposide 45 1,018.25 mls @ 42.427 mls/hr 09/10/17 15:00 mg/ Sodium Chloride IV 09/11/17 14:59 ONCE ONE Cyclophosphamide 480 mg/ 1,030 mls @ 42.917 mls/hr 09/10/17 15:00 Doxorubicin HCl 12 mg/ Sodium IVPB 09/11/17 14:59 Chloride ONCE ONE Levothyroxine Sodium 125 mcg 09/09/17 07:00 09/10/17 06:12 Synthroid - PO 125 mcg DAILY@0700 TANIYA Administration Lisinopril 2.5 mg 09/09/17 10:00 09/09/17 10:14 Prinivil PO 2.5 mg DAILY TANIYA Administration Miscellaneous 1 each 09/09/17 13:10 Duragesic Patch Waste TD PRN PRN PAIN Morphine Sulfate 2 mg 09/09/17 15:58 09/09/17 16:07 Morphine Sulfate IVPUSH 2 mg Q3H PRN Administration PAIN LEVEL 4 - 6 Ondansetron HCl 8 mg 09/08/17 19:14 09/09/17 10:14 Zofran Injection IVPB 8 mg Q12H PRN Administration NAUSEA Oxycodone HCl 10 mg 09/08/17 18:20 09/10/17 00:14 Roxicodone - PO 10 mg Q6H PRN Administration PAIN 6-10 Ranitidine HCl 150 mg 09/09/17 10:00 09/09/17 10:14 Zantac - PO 150 mg DAILY TANIYA Administration Senna/Docusate Sodium 1 tablet 09/09/17 22:00 09/09/17 22:47 Pericolace - PO 1 tablet BID TANIYA Administration Impression: Multiple myeloma--not in remission Chemotherapy Thrush Bone mets Ocular problem Plan: DVT prophylaxis Diflucan Miralax RT Opthalmology
[2017-09-10 08:05] LABS: HEMATOCRIT 27.5 % (32.4-45.2); HEMOGLOBIN 9.5 GM/dL (10.7-15.3); LYMPH % 1.6 % (8-40); MCHC 34.5 g/dl (32.0-36.0); MEAN CELL VOLUME 104.4 fl (80-96); MEAN PLT VOLUME 7.6 fl (7.5-11.1); MONO % 11.6 % (3.8-10.2); NEUT % 86.8 % (42.8-82.8); PLATELET COUNT 95 K/MM3 (134-434); RBC 2.63 M/mm3 (3.60-5.2); RDW 20.1 % (11.6-15.6)
[2017-09-10 08:19] LABS: CHLORIDE 99 mmol/L (98-107); POTASSIUM 4.2 mmol/L (3.5-5.1); SODIUM 135 mmol/L (136-145)
[2017-09-10 08:50] LABS: ALBUMIN 2.6 g/dl (3.4-5.0); ALK PHOS 69 U/L (45-117); ANION GAP 12 (8-16); BILIRUBIN,TOTAL 0.4 mg/dL (0.2-1.0); BLOOD UREA NITROGEN 21 mg/dL (7-18); CALCIUM 8.4 mg/dL (8.5-10.1); CO2 24 mmol/L (21-32); CREATININE 0.4 mg/dL (0.55-1.02); GLUCOSE,RANDOM 102 mg/dL (74-106); LDH 418 U/L (84-246); PHOSPHOROUS 3.7 mg/dL (2.5-4.9); SGOT/AST 46 U/L (15-37); SGPT/ALT 18 U/L (12-78); URIC ACID 4.6 mg/dL (2.6-7.2)
[2017-09-10] MEDS: ALLOPURINOL 300 MG TABLET (FP) PO SCH (09:35)
[2017-09-10] MEDS: RANITIDINE HCL 150 MG TABLET (FP) PO SCH (09:35)
[2017-09-10] MEDS: SENNOSIDES/DOCUSATE COMBO (SENNA PLUS) TABLET (UD) PO SCH ×2 (09:35→22:31)
[2017-09-10] MEDS: DEXAMETHASONE SOD PHOSPHATE 10 MG/1 ML VIAL IVPB SCH ×2 (09:36→22:30)
[2017-09-10] MEDS: POLYETHYLENE GLYCOL 3350 119 GM BTL PO SCH (09:36)
[2017-09-10] MEDS: FLUCONAZOLE 100 MG TABLET (UD) PO SCH (09:36)
[2017-09-10] MEDS: CARVEDILOL 3.125 MG TABLET (FP) PO SCH ×2 (09:36→22:30)
[2017-09-10] MEDS: LISINOPRIL 5 MG TABLET (FP) PO SCH (09:36)
[2017-09-10] MEDS: ENOXAPARIN NA (PORCINE) 30 MG/0.3 ML DISP.SYRIN SQ SCH (09:37)
[2017-09-10] MEDS: ONDANSETRON 4 MG/2 ML VIAL IVPB PRN ×2 (09:37→22:30)
[2017-09-10] MEDS ORDERED: NYSTATIN 500,000 UNITS TABLET PO SCH (10:00)
[2017-09-10] MEDS: ACYCLOVIR 400 MG TABLET PO SCH (11:52)
[2017-09-10] MEDS: NYSTATIN 500,000 UNITS/5 ML SUSPENSION PO SCH ×3 (14:24→22:31)
--- NOTE | 2017-09-10 14:34 | CONS ---
DATE OF CONSULTATION: 09/10/2017 REFERRING PHYSICIAN: Juventino Herrera MD REASON FOR CONSULTATION: Progressive myeloma with left orbital swelling and pain. HISTORY OF PRESENT ILLNESS: The patient is a 62-year-old lady well known to me with a long history of multiple myeloma since at least 2007. She has received multiple courses of palliative radiation therapy with good effect. She is currently receiving treatment at [place] and with Dr. Herrera locally. She has had most recently palliative radiation therapy to a right sphenoid mass with resolution of right facial paresthesia and diplopia. She completed that treatment in June. She has continued systemic therapy and was admitted on Friday to proceed with treatment with Dr. Herrera. She had an abdominal port placement recently. I was asked to see her because of interval increased swelling and pain of the left orbit associated with ptosis, blurred vision, as well as increased left calvarial masses associated with pain. Since starting her chemotherapy 2 days ago, the patient reports that the pain and swelling of the left eye have decreased significantly and similarly the left frontal scalp masses have decreased as well. She has had no nausea, vomiting, dizziness. She is tolerating the back pain which is unchanged. She is ambulatory and denies lower extremity pain. She had a PET-CT scan last week which showed numerous bone lesions largest in the left iliac near the SI joint with extramedullary extension into the soft tissues, multifocal expansile rib lesions, and a new lesion in the left lateral orbital wall with extramedullary extension demonstrating mass effect on the extraocular muscle and globe causing medial displacement of the left optic neurovascular bundle. 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 There are lesions in the mid-left femur and left femoral neck extending into the intertrochanteric region which may be at risk for pathologic fracture. PHYSICAL EXAMINATION: General: Well appearing, in no acute distress, her friend at the bedside. Vital signs: Temperature 97.9, blood pressure 152/74, pulse 75, respiratory rate 20, SaO2 of 97% on room air. HEENT: Mild left proptosis, minimal left ptosis and swelling along the left lateral orbit. Extraocular movements are intact. No field cut. The mucous membranes are moist without icterus. Multiple non tender soft-tissue masses on the left calvarium. Oral cavity mild candidiasis. Neck: Supple, no adenopathy. Lungs: Clear. Heart: Regular. Abdomen: Abdominal port is in place. Soft. Nontender. Nondistended. Extremities: No peripheral edema with normal range of motion. Musculoskeletal: No spine or paraspinal tenderness or mass. No hip or lower extremity tenderness or mass. Neurologic: As above, otherwise nnonfocal. RADIOLOGIC DATA: Outside PET-CT as noted above. LABORATORY DATA: WBC 5.0, hemoglobin 9.5, platelets 95,000. Electrolytes within normal limits. BUN 21, creatinine 0.4, calcium 8.4, magnesium 2.0, AST 46, ALT 18, alkaline phosphatase 69, LDH 418, albumin 2.6. IMPRESSION: A 62-year-old woman with progressive multiple myeloma on chemotherapy, status post mulitple palliative radiation therapy most recently to the right sphenoid, with some progression of disease in the left lateral orbit, calvarium, and femur. I discussed the option of palliative radiation or when disease or symptoms worsen as she is feeling much improved after starting chemotherapy again. She is hoping to get to her T-cell therapy at [place] in the near future. I recommended palliative radiation therapy to control pain and reduce further neurologic deficits including her vision and potentially to also consider treatment to the left frontal calvarial lesion which has completely eroded through the table of the cranium so that intracranial extension is certainly of concern though she is asymptomatic at this time. I would also consider treatment of the left femur to minimize the risk of pathological fracture where there may be compromise of the integrity of the cortical bone. There has been thecal sac impingement in the lumbar spine disease which seems to be controlled with by her systemic therapy at this time. She elects to have treatment to the left orbit, which is most bothersome and worrisome, and we should be able to provide a fairly localized treatment to minimize toxicity, in light of prior treatment of the right sphenoid region. PLAN: Continue with current chemotherapy plan. Palliative radiation therapy to the right orbit can be arranged upon her discharge. I appreciate the opportunity to see her again. CHAR MIDDLETON M.D. [id number] MTDD
[2017-09-10] MEDS ORDERED: SODIUM CHLORIDE IVPB ONE (15:00)
[2017-09-10] MEDS ORDERED: CYCLOPHOSPHAMIDE IVPB ONE (15:00)
[2017-09-10] MEDS ORDERED: DOXORUBICIN HCL IVPB ONE (15:00)
[2017-09-10] MEDS: CISPLATIN IV ONE ×2 (18:31→18:55)
[2017-09-10] MEDS: ETOPOSIDE IV ONE ×2 (18:31→18:55)
[2017-09-10] MEDS: SODIUM CHLORIDE IV ONE ×2 (18:31→18:55)
[2017-09-10] MEDS ORDERED: PT OWN MED DRAWER 7, Y5N ONE (20:29)
[2017-09-11] MEDS: LEVOTHYROXINE NA 125 MCG TABLET (FP) PO SCH (06:27)
[2017-09-11 07:49] LABS: HEMATOCRIT 28.9 % (32.4-45.2); MCH 36.1 pg (25.7-33.7); MCHC 34.6 g/dl (32.0-36.0); MEAN CELL VOLUME 104.3 fl (80-96); MEAN PLT VOLUME 8.6 fl (7.5-11.1); PLATELET COUNT 109 K/MM3 (134-434); RBC 2.77 M/mm3 (3.60-5.2); RDW 19.9 % (11.6-15.6); WHITE BLOOD COUNT 6.6 K/mm3 (4.0-10.0)
[2017-09-11 08:09] LABS: ALBUMIN 2.8 g/dl (3.4-5.0); ANION GAP 12 (8-16); BILIRUBIN,TOTAL 0.5 mg/dL (0.2-1.0); BLOOD UREA NITROGEN 27 mg/dL (7-18); CALCIUM 7.8 mg/dL (8.5-10.1); CHLORIDE 100 mmol/L (98-107); CO2 23 mmol/L (21-32); CREATININE 0.5 mg/dL (0.55-1.02); GLUCOSE,RANDOM 173 mg/dL (74-106); LDH 566 U/L (84-246); MAGNESIUM 2.2 mg/dL (1.8-2.4); POTASSIUM 4.2 mmol/L (3.5-5.1); SGOT/AST 59 U/L (15-37); SGPT/ALT 24 U/L (12-78); SODIUM 135 mmol/L (136-145); TOT PROT 6.2 g/dl (6.4-8.2); URIC ACID 4.5 mg/dL (2.6-7.2)
[2017-09-11 08:10] LABS: ALK PHOS 78 U/L (45-117)
--- NOTE | 2017-09-11 08:17 | PN ---
Progress Note (short form) - Note Progress Note: Patient seen and examined Pain improved Somewhat depressed Voice improved Swallowing better Some nausea - relieved with zofran Denies significant back pains Moving bowels--> 3 bowel movements Last Vital Signs Temp Pulse Resp BP Pulse Ox 98.4 F 75 18 146/79 97 09/11/17 06:05 09/11/17 06:05 09/11/17 06:05 09/11/17 06:05 09/10/17 21:00 HEENT: left eye -tendency toward closing of lid ; reactive ; reddy full Oropharynx: thrush improved No mucositis Cor: RSR, No murmurs, No gallops Lungs: Clear to P&A Abd: Soft, Normal bowel sounds, No organomegaly,distended Ext:No significant edema Skin: No rashes, Integument intact,numerous ecchymoses port infusing well CBC, BMP 09/11/17 06:00 09/11/17 06:00 Current Medications Generic Name Dose Route Start Last Admin Trade Name Freq PRN Reason Stop Dose Admin Acetaminophen 650 mg 09/08/17 18:20 Tylenol - PO Q6H PRN PAIN 6-10 Acyclovir 400 mg 09/09/17 10:00 09/10/17 11:52 Zovirax - PO 400 mg DAILY TANIYA Administration Allopurinol 300 mg 09/09/17 10:00 09/10/17 09:35 Zyloprim - PO 300 mg DAILY TANIYA Administration Carvedilol 3.125 mg 09/08/17 22:00 09/10/17 22:30 Coreg - PO 3.125 mg BID TANIYA Administration Dexamethasone Sodium Phosphate 20 mg 09/09/17 22:00 09/10/17 22:30 Decadron Injection - IVPB 20 mg BID TANIYA Administration Diphenhydramine HCl 25 mg 09/08/17 19:30 Benadryl Injection - IVPB Q6H PRN itching Enoxaparin Sodium 30 mg 09/10/17 10:00 09/10/17 09:37 Lovenox - SQ 30 mg DAILY TANIYA Administration Fentanyl 1 patch 09/09/17 13:15 09/09/17 18:12 Duragesic 100mcg Patch - TD 09/16/17 13:11 1 patch Q72H TANIYA Administration Fluconazole 100 mg 09/10/17 10:00 09/10/17 09:36 Diflucan - PO 100 mg DAILY TANIYA Administration Sodium Chloride 1,000 mls @ 60 mls/hr 09/08/17 18:15 09/10/17 01:48 Normal Saline - IV 60 mls/hr ASDIR TANIYA Administration Cisplatin 16 mg/ Etoposide 45 1,018.25 mls @ 42.427 mls/hr 09/10/17 15:00 18:31 mg/ Sodium Chloride IV 09/11/17 14:59 42.427 mls/hr ONCE ONE Administration Cyclophosphamide 480 mg/ 1,030 mls @ 42.917 mls/hr 09/10/17 15:00 09/10/17 18 :33 Doxorubicin HCl 12 mg/ Sodium IVPB 09/11/17 14:59 42.917 mls/hr Chloride ONCE ONE Administration Cisplatin 16 mg/ Etoposide 45 1,018.25 mls @ 42.427 mls/hr 09/11/17 14:00 mg/ Sodium Chloride IV 09/12/17 13:59 ONCE ONE Cyclophosphamide 480 mg/ 1,030 mls @ 42.917 mls/hr 09/11/17 14:00 Doxorubicin HCl 12 mg/ Sodium IVPB 09/12/17 13:59 Chloride ONCE ONE Levothyroxine Sodium 125 mcg 09/09/17 07:00 09/11/17 06:27 Synthroid - PO 125 mcg DAILY@0700 TANIYA Administration Lisinopril 2.5 mg 09/09/17 10:00 09/10/17 09:36 Prinivil PO 2.5 mg DAILY TANIYA Administration Miscellaneous 1 each 09/09/17 13:10 Duragesic Patch Waste TD PRN PRN PAIN Morphine Sulfate 2 mg 09/09/17 15:58 09/09/17 16:07 Morphine Sulfate IVPUSH 2 mg Q3H PRN Administration PAIN LEVEL 4 - 6 Nystatin 500,000 units 09/10/17 14:00 09/10/17 22:31 Nystatin Oral Suspension - PO 500,000 units QID TANIYA Administration Ondansetron HCl 8 mg 09/08/17 19:14 09/10/17 22:30 Zofran Injection IVPB 8 mg Q12H PRN Administration NAUSEA Oxycodone HCl 10 mg 09/08/17 18:20 09/10/17 00:14 Roxicodone - PO 10 mg Q6H PRN Administration PAIN 6-10 Polyethylene Glycol 17 gm 09/10/17 10:00 09/10/17 09:36 Miralax (For Daily Use) - PO Not Given DAILY TANIYA Ranitidine HCl 150 mg 09/09/17 10:00 09/10/17 09:35 Zantac - PO 150 mg DAILY TANIYA Administration Senna/Docusate Sodium 1 tablet 09/09/17 22:00 09/10/17 22:31 Pericolace - PO 1 tablet BID TANIYA Administration Impression: Myeloma - not in remission Pain control-improved with Fentanyl -100mcg and [place] Thrush- improved with diflucan and nystatin Anemia- secondary to chemotherapy Thrombocytopenia- secondary to chemotherapy Chemotherapy with decadron, cytoxn, adriamycin, nulato etoposide continuing DVT prophylaxis with lovenox Increased LDH and rising BUN - to monitor- today's labs pending
[2017-09-11 09:02] LABS: ANISOCYTOSIS 1+; MACROCYTOSIS 1+; PLATELET ESTIMATE DECREASED
[2017-09-11] MEDS ORDERED: PT OWN MED DRAWER 7, Y5N ONE (09:28)
[2017-09-11] MEDS: ENOXAPARIN NA (PORCINE) 30 MG/0.3 ML DISP.SYRIN SQ SCH (09:37)
[2017-09-11] MEDS: DEXAMETHASONE SOD PHOSPHATE 10 MG/1 ML VIAL IVPB SCH ×2 (09:38→22:39)
[2017-09-11] MEDS: CARVEDILOL 3.125 MG TABLET (FP) PO SCH ×2 (09:38→22:36)
[2017-09-11] MEDS: SENNOSIDES/DOCUSATE COMBO (SENNA PLUS) TABLET (UD) PO SCH ×2 (09:38→22:36)
[2017-09-11] MEDS: FLUCONAZOLE 100 MG TABLET (UD) PO SCH (09:38)
[2017-09-11] MEDS: ALLOPURINOL 300 MG TABLET (FP) PO SCH (09:38)
[2017-09-11] MEDS: NYSTATIN 500,000 UNITS/5 ML SUSPENSION PO SCH ×4 (09:38→22:35)
[2017-09-11] MEDS: ONDANSETRON 4 MG/2 ML VIAL IVPB PRN ×2 (09:39→22:40)
[2017-09-11] MEDS: LISINOPRIL 5 MG TABLET (FP) PO SCH (09:39)
[2017-09-11] MEDS: RANITIDINE HCL 150 MG TABLET (FP) PO SCH (09:39)
[2017-09-11] MEDS: ACYCLOVIR 400 MG TABLET PO SCH (09:40)
[2017-09-11] MEDS ORDERED: SODIUM CHLORIDE 500 ML IV STA (13:14)
[2017-09-11] MEDS: oxyCODONE HCL 5 MG TABLET PO PRN ×2 (13:18→22:37)
[2017-09-11] MEDS ORDERED: MAG HYDROX/AL HYDROX/SIMETH 30 ML UNIT-DOSE CUP PO ONE (13:53)
[2017-09-11] MEDS ORDERED: SODIUM CHLORIDE IVPB ONE (14:00)
[2017-09-11] MEDS ORDERED: CYCLOPHOSPHAMIDE IVPB ONE (14:00)
[2017-09-11] MEDS ORDERED: SODIUM CHLORIDE IV ONE (14:00)
[2017-09-11] MEDS ORDERED: ETOPOSIDE IV ONE (14:00)
[2017-09-11] MEDS ORDERED: CISPLATIN IV ONE (14:00)
[2017-09-11] MEDS ORDERED: DOXORUBICIN HCL IVPB ONE (14:00)
[2017-09-11] MEDS: POLYETHYLENE GLYCOL 3350 119 GM BTL PO SCH (14:30)
[2017-09-11] MEDS: SODIUM CHLORIDE 1,000 ML IV SCH ×2 (18:39→19:31)
[2017-09-11] MEDS: PANTOPRAZOLE SODIUM 40 MG VIAL IVPB SCH (19:31)
[2017-09-12] MEDS: LEVOTHYROXINE NA 125 MCG TABLET (FP) PO SCH (06:25)
[2017-09-12 07:59] LABS: HEMATOCRIT 24.8 % (32.4-45.2); HEMOGLOBIN 8.6 GM/dL (10.7-15.3); LYMPH % 2.7 % (8-40); MCH 35.8 pg (25.7-33.7); MCHC 34.5 g/dl (32.0-36.0); MEAN CELL VOLUME 103.8 fl (80-96); MONO % 1.4 % (3.8-10.2); NEUT % 95.9 % (42.8-82.8); PLATELET COUNT 89 K/MM3 (134-434); RBC 2.39 M/mm3 (3.60-5.2); RDW 19.8 % (11.6-15.6); WHITE BLOOD COUNT 5.7 K/mm3 (4.0-10.0)
[2017-09-12 08:52] LABS: CHLORIDE 101 mmol/L (98-107); POTASSIUM 3.9 mmol/L (3.5-5.1); SODIUM 137 mmol/L (136-145)
[2017-09-12 09:06] LABS: ALBUMIN 2.5 g/dl (3.4-5.0); ALK PHOS 64 U/L (45-117); ANION GAP 11 (8-16); BILIRUBIN,TOTAL 0.5 mg/dL (0.2-1.0); BLOOD UREA NITROGEN 26 mg/dL (7-18); CALCIUM 7.2 mg/dL (8.5-10.1); CO2 25 mmol/L (21-32); CREATININE 0.4 mg/dL (0.55-1.02); GLUCOSE,RANDOM 113 mg/dL (74-106); LDH 514 U/L (84-246); MAGNESIUM 2.2 mg/dL (1.8-2.4); PHOSPHOROUS 3.3 mg/dL (2.5-4.9); SGOT/AST 54 U/L (15-37); SGPT/ALT 22 U/L (12-78); TOT PROT 5.5 g/dl (6.4-8.2); URIC ACID 4.1 mg/dL (2.6-7.2)
[2017-09-12] MEDS: PANTOPRAZOLE SODIUM 40 MG VIAL IVPB SCH (10:14)
[2017-09-12] MEDS: ENOXAPARIN NA (PORCINE) 30 MG/0.3 ML DISP.SYRIN SQ SCH (10:14)
[2017-09-12] MEDS: NYSTATIN 500,000 UNITS/5 ML SUSPENSION PO SCH ×4 (10:15→22:16)
[2017-09-12] MEDS: ALLOPURINOL 300 MG TABLET (FP) PO SCH (10:15)
[2017-09-12] MEDS: SENNOSIDES/DOCUSATE COMBO (SENNA PLUS) TABLET (UD) PO SCH ×2 (10:15→22:16)
[2017-09-12] MEDS: ACYCLOVIR 400 MG TABLET PO SCH (10:16)
[2017-09-12] MEDS: DEXAMETHASONE SOD PHOSPHATE 10 MG/1 ML VIAL IVPB SCH ×2 (10:16→22:53)
[2017-09-12] MEDS: CARVEDILOL 3.125 MG TABLET (FP) PO SCH ×2 (10:17→22:16)
[2017-09-12] MEDS: LISINOPRIL 5 MG TABLET (FP) PO SCH (10:17)
[2017-09-12] MEDS: POLYETHYLENE GLYCOL 3350 119 GM BTL PO SCH (10:18)
[2017-09-12] MEDS: FLUCONAZOLE 100 MG TABLET (UD) PO SCH (10:18)
--- NOTE | 2017-09-12 12:16 | PN ---
Progress Note (short form) - Note Progress Note: Patient seen and examined Less pain Thrush improved Left eye improved Moving bowels Port infusing well Some headache No significant chest pains Last Vital Signs Temp Pulse Resp BP Pulse Ox 98.0 F 72 18 141/83 96 09/12/17 08:54 09/12/17 08:54 09/12/17 08:54 09/12/17 08:54 09/11/17 20:55 HEENT: MELANY, EOM Intact Oropharynx: No thrush, No mucositis Cor: RSR,systolic murmur Lungs: few rales at bases Abd: Soft, Normal bowel sounds, No organomegaly,mild distension Ext:No significant edema Skin: No rashes, Integument intact Numerous ecchymoses Port infusing CBC, BMP 09/12/17 06:30 09/12/17 06:30 Current Medications Generic Name Dose Route Start Last Admin Trade Name Freq PRN Reason Stop Dose Admin Acetaminophen 650 mg 09/08/17 18:20 Tylenol - PO Q6H PRN PAIN 6-10 Acyclovir 400 mg 09/09/17 10:00 09/12/17 10:16 Zovirax - PO 400 mg DAILY TANIYA Administration Allopurinol 300 mg 09/09/17 10:00 09/12/17 10:15 Zyloprim - PO 300 mg DAILY TANIYA Administration Carvedilol 3.125 mg 09/08/17 22:00 09/12/17 10:17 Coreg - PO 3.125 mg BID TANIYA Administration Dexamethasone Sodium Phosphate 20 mg 09/09/17 22:00 09/12/17 10:16 Decadron Injection - IVPB 20 mg BID TANIYA Administration Diphenhydramine HCl 25 mg 09/08/17 19:30 Benadryl Injection - IVPB Q6H PRN itching Enoxaparin Sodium 30 mg 09/10/17 10:00 09/12/17 10:14 Lovenox - SQ 30 mg DAILY TANIYA Administration Fentanyl 1 patch 09/09/17 13:15 09/09/17 18:12 Duragesic 100mcg Patch - TD 09/16/17 13:11 1 patch Q72H TANIYA Administration Fluconazole 100 mg 09/10/17 10:00 09/12/17 10:18 Diflucan - PO 100 mg DAILY TANIYA Administration Sodium Chloride 1,000 mls @ 60 mls/hr 09/08/17 18:15 09/11/17 19:31 Normal Saline - IV 60 mls/hr ASDIR TANIYA Administration Cisplatin 16 mg/ Etoposide 45 1,018.25 mls @ 42.427 mls/hr 09/11/17 14:00 19:48 mg/ Sodium Chloride IV 09/12/17 13:59 42.427 mls/hr ONCE ONE Administration Cyclophosphamide 480 mg/ 1,030 mls @ 42.917 mls/hr 09/11/17 14:00 09/11/17 19 :49 Doxorubicin HCl 12 mg/ Sodium IVPB 09/12/17 13:59 42.917 mls/hr Chloride ONCE ONE Administration Levothyroxine Sodium 125 mcg 09/09/17 07:00 09/12/17 06:25 Synthroid - PO 125 mcg DAILY@0700 TANIYA Administration Lisinopril 2.5 mg 09/09/17 10:00 09/12/17 10:17 Prinivil PO 2.5 mg DAILY TANIYA Administration Miscellaneous 1 each 09/09/17 13:10 Duragesic Patch Waste TD PRN PRN PAIN Morphine Sulfate 2 mg 09/09/17 15:58 09/09/17 16:07 Morphine Sulfate IVPUSH 2 mg Q3H PRN Administration PAIN LEVEL 4 - 6 Nystatin 500,000 units 09/10/17 14:00 09/12/17 10:15 Nystatin Oral Suspension - PO 500,000 units QID TANIYA Administration Ondansetron HCl 8 mg 09/08/17 19:14 09/11/17 22:40 Zofran Injection IVPB 8 mg Q12H PRN Administration NAUSEA Oxycodone HCl 10 mg 09/08/17 18:20 09/11/17 22:37 Roxicodone - PO 10 mg Q6H PRN Administration PAIN 6-10 Pantoprazole Sodium 40 mg 09/11/17 19:00 09/12/17 10:14 Protonix Iv IVPB 40 mg DAILY TANIYA Administration Polyethylene Glycol 17 gm 09/10/17 10:00 09/12/17 10:18 Miralax (For Daily Use) - PO Not Given DAILY TANIYA Senna/Docusate Sodium 1 tablet 09/09/17 22:00 09/12/17 10:15 Pericolace - PO 1 tablet BID TANIYA Administration Impression: Myeloma - not in remission Bone mets Pain management - Fentanyl -100 and oxycodone Anemia-- chemotherapy Thrombocytopenia Thrush Completing chemotherapy To complete course of chemotherapy If further fall in Hb/Hct will need transfusion ASA-81 mg on discharge Additional meds upon discharge Cipro 250 mg BID upon discharge Diflucan -150 mg p.o daily Nystatin suspension - swish and swallow Taper of decadron - 16 mg-->12-->8-->6-->4-->2--> d/c Follow up with RT on Friday--09/15 Office 09/15 Optho--09/16 \
[2017-09-12] MEDS: fentaNYL 100mcg/hr PATCH.TD72 TD SCH (13:21)
[2017-09-12] MEDS: SODIUM CHLORIDE 1,000 ML IV SCH ×2 (13:57→18:58)
--- NOTE | 2017-09-12 14:47 | DS ---
Physical Examination Vital Signs: Vital Signs Temperature 97.9 F 09/12/17 14:20 Pulse Rate 77 09/12/17 14:20 Respiratory Rate 18 09/12/17 14:20 Blood Pressure 153/83 09/12/17 14:20 O2 Sat by Pulse Oximetry (%) 96 09/11/17 20:55 Constitutional: Yes: No Distress, Calm Eyes: Yes: Conjunctiva Clear HENT: Yes: Atraumatic, Normocephalic Neck: Yes: Supple Cardiovascular: Yes: Regular Rate and Rhythm Respiratory: Yes: Regular, CTA Bilaterally Gastrointestinal: Yes: Normal Bowel Sounds, Soft Extremities: Yes: WNL Edema: No Labs: CBC, BMP 09/12/17 06:30 09/12/17 06:30 Discharge Summary Reason For Visit: MULTIPLE MYELOMA (C90.00) Hospital Course: Was admitted for D-PACE for relapsed/refractory Multiple Myeloma Tolerated therapy with no issues all the 5 days She is to be discharged today with OP office f/u on 09/15 with Sent OI ppx ( cipro / fluc ) to her pharmacy She will start taking Neupogen starting tomorrow Neutropenic precautions given Res of the home meds continued Condition: Fair - Instructions Disposition: HOME - Home Medications Comprehensive Discharge Medication List: Ambulatory Orders Levothyroxine [Synthroid -] 125 mcg PO DAILY 12/18/12 Allopurinol 300 mg PO DAILY 01/31/16 Carvedilol [Coreg] 3.125 mg PO BID 07/09/16 Lisinopril [Zestril] 2.5 mg PO DAILY 07/09/16 Hydrocodone/Ibuprofen [Hydrocodone-Ibuprofen 7.5-200] 1 tab PO QID PRN 12/01/16 Acyclovir [Zovirax -] 400 mg PO DAILY #30 tablet 12/05/16 FENTANYL 25mcg PATCH [DURAGESIC 25mcg PATCH -] 100 mcg TD Q72H 09/04/17 Ranitidine [Zantac -] 150 mg PO DAILY 09/08/17
[2017-09-12 17:22] VITALS: TEMP 98.1
[2017-09-12] MEDS: oxyCODONE HCL 5 MG TABLET PO PRN (17:29)
[2017-09-13 00:18] VITALS: BP 152/80; PULSE 66
== END 2017-09-12 23:00 | disposition home or self-care (01) | DRG 847 ==
LOC: JONCCHEMO 07:21 → J7W 14:20 → UNDODISIN 09-12 22:19
PROVIDERS: ADMIT Internal Medicine Hematology & Oncology; ATTEND Internal Medicine Hematology & Oncology
DX: Z51.11 Encounter for antineoplastic chemotherapy (principal); B37.0 Candidal stomatitis; C90.00 Multiple myeloma not having achieved remission; D69.59 Other secondary thrombocytopenia; D64.81 Anemia due to antineoplastic chemotherapy; T45.1X5A Adverse effect of antineoplastic and immunosuppressive drugs, initial encounter
CPT/HCPCS: 36415; 80053; 83615; 83735; 84100; 84550; 85025; 86850; 86870; 86900; 86901; 86902; 96361; 96367; 96375; 96413; 96415; 96417; J1100; J2405; J7030; J9070; J9181

== ENCOUNTER 2017-09-19 10:00 | Day surgery (SDC) | payer BC ==
[2017-09-19 10:48] LABS: ALBUMIN 3.1 g/dl (3.4-5.0); ANION GAP 9 (8-16); BILIRUBIN,TOTAL 0.5 mg/dL (0.2-1.0); BLOOD UREA NITROGEN 22 mg/dL (7-18); CHLORIDE 98 mmol/L (98-107); CO2 30 mmol/L (21-32); CREATININE 0.4 mg/dL (0.55-1.02); GLUCOSE,RANDOM 88 mg/dL (74-106); MAGNESIUM 1.7 mg/dL (1.8-2.4); POTASSIUM 3.3 mmol/L (3.5-5.1); SGOT/AST 25 U/L (15-37); SGPT/ALT 25 U/L (12-78); SODIUM 137 mmol/L (136-145); TOT PROT 5.6 g/dl (6.4-8.2)
[2017-09-19 10:49] LABS: ALK PHOS 186 U/L (45-117)
[2017-09-19 11:00] LABS: HEMATOCRIT 32.3 % (32.4-45.2); HEMOGLOBIN 10.9 GM/dL (10.7-15.3); MCHC 33.8 g/dl (32.0-36.0); MEAN CELL VOLUME 103.8 fl (80-96); MEAN PLT VOLUME 9.2 fl (7.5-11.1); RBC 3.12 M/mm3 (3.60-5.2); RDW 19.2 % (11.6-15.6)
[2017-09-19 11:50] LABS: CALCIUM 6.7 mg/dL (8.5-10.1)
[2017-09-19 11:52] LABS: PLATELET COUNT 20 K/MM3 (134-434); WHITE BLOOD COUNT 0.1 K/mm3 (4.0-10.0)
[2017-09-19] MEDS ORDERED: SODIUM CHLORIDE 500 ML IV STA (13:37)
[2017-09-19 14:31] LABS: PLATELET ESTIMATE SIG DECREASED
[2017-09-19] MEDS ORDERED: SODIUM CHLORIDE 0.45% 1,000 ML IV SCH (14:37)
[2017-09-19] MEDS ORDERED: MAGNESIUM 2GM/50ML STERILE WATER IVPB IVPB ONE (14:59)
[2017-09-19] MEDS ORDERED: POTASSIUM CHLORIDE 10 MEQ in SODIUM CHLORIDE 100 ML IVPB SCH (15:00)
[2017-09-19] MEDS ORDERED: MAGNESIUM SULF 50% (8.12 MEQ/2 ML-1 GM VIAL) ONE (15:19)
[2017-09-19 18:37] VITALS: BP 141/71; PULSE 81; TEMP 97.9
== END 2017-09-19 18:38 | disposition home or self-care (01) ==
LOC: JONCBLOOD 10:00 → JLAB 10:01 → J7W 13:20 → JONCBLOOD 18:38
PROVIDERS: ATTEND Internal Medicine Hematology & Oncology
PROC: 3E033GC Introduction of Other Therapeutic Substance into Peripheral Vein, Percutaneous Approach (ICD-10-PCS; principal; 2017-09-19)
PROC: 3E033GC Introduction of Other Therapeutic Substance into Peripheral Vein, Percutaneous Approach (ICD-10-PCS; 2017-09-19)
PROC: 30233H1 Transfusion of Nonautologous Whole Blood into Peripheral Vein, Percutaneous Approach (ICD-10-PCS; 2017-09-19)
DX: C90.00 Multiple myeloma not having achieved remission (principal); D64.9 Anemia, unspecified
CPT/HCPCS: 36415; 36430; 80053; 83735; 85025; 86850; 86870; 86900; 86901; 86902; 96361; 96365; 96367; 96417; P9034; P9038

== ENCOUNTER 2017-09-27 13:17 | Emergency (ER) | payer BC ==
[2017-09-27 13:37] VITALS: BMI 18.8
--- NOTE | 2017-09-27 14:16 | PDOC ---
History of Present Illness - General Chief Complaint: Blood Transfusion Stated Complaint: PCP SENT Time Seen by Provider: 09/27/17 13:39 History Source: Patient Exam Limitations: No Limitations - History of Present Illness Initial Comments: 09/27/17 14:04 The patient is a 62F with a PMH of multiple myeloma (on chemotherapy with Dr. Herrera) who presents to the ER after being found to have a platelet count of 20, 000 on labs this morning. She denies any symptoms of easy bruising, bleeding, hematuria, hematochezia, fever, chills, vomiting. She admits to nausea and says it is chronic 2/2 to chemo. She also states she has b/l leg pain 2/2 to steroids. Past History - Past Medical History Allergies/Adverse Reactions: Allergies Allergy/AdvReac Type Severity Reaction Status Date / Time No Known Allergies Allergy Verified 09/27/17 13:31 Home Medications: Ambulatory Orders Levothyroxine [Synthroid -] 125 mcg PO DAILY 12/18/12 Allopurinol 300 mg PO DAILY 01/31/16 Carvedilol [Coreg] 3.125 mg PO BID 07/09/16 Lisinopril [Zestril] 2.5 mg PO DAILY 07/09/16 Hydrocodone/Ibuprofen [Hydrocodone-Ibuprofen 7.5-200] 1 tab PO QID PRN 12/01/16 Acyclovir [Zovirax -] 400 mg PO DAILY #30 tablet 12/05/16 FENTANYL 25mcg PATCH [DURAGESIC 25mcg PATCH -] 100 mcg TD Q72H 09/04/17 Ranitidine [Zantac -] 150 mg PO DAILY 09/08/17 Anemia: Yes (IRON DEFICIENCY) Asthma: No Cancer: Yes (Multiple Myoloma) Cardiac Disorders: No CVA: No COPD: No CHF: No DVT: No Dementia: No Diabetes: No GI Disorders: No Disorders: No HTN: No Hypercholesterolemia: No Liver Disease: No Seizures: No Thyroid Disease: Yes (REMOVED(Hypo)) - Surgical History Abdominal Surgery: Yes Appendectomy: Yes Cardiac Surgery: No Cholecystectomy: Yes Lung Surgery: No Neurologic Surgery: No Orthopedic Surgery: No - Immunization History Immunization Up to Date: Yes - Suicide/Smoking/Psychosocial Hx Smoking Status: Yes Smoking History: Former smoker Have you smoked in the past 12 months: No Number of Cigarettes Smoked Daily: 0 If you are a former smoker, when did you quit?: 40yrs Information on smoking cessation initiated: No 'Breaking Loose' booklet given: 12/18/12 Hx Alcohol Use: No Drug/Substance Use Hx: No Substance Use Type: None Hx Substance Use Treatment: No Review of Systems - Review of Systems Able to Perform ROS?: Yes Comments:: 09/27/17 14:16 GENERAL/CONSTITUTIONAL: No fever or chills. No weakness. HEAD, EYES, EARS, NOSE AND THROAT: No change in vision. No ear pain or discharge. No sore throat. CARDIOVASCULAR: No chest pain, palpitations, or lightheadedness. RESPIRATORY: No cough, wheezing, shortness of breath, or hemoptysis. GASTROINTESTINAL: No nausea, vomiting, diarrhea, constipation, or abdominal pain. GENITOURINARY: No dysuria, frequency, hematuria, or change in urination. MUSCULOSKELETAL: No joint or muscle swelling or pain. No neck or back pain. SKIN: No rash or lesions. NEUROLOGIC: No headache, numbness, tingling, weakness, loss of consciousness, or change in strength/sensation. ENDOCRINE: No increased thirst. No abnormal weight change. HEMATOLOGIC/LYMPHATIC: No anemia, easy bleeding, or history of blood clots. ALLERGIC/IMMUNOLOGIC: No hives or skin allergy. Is the patient limited Montenegrin proficient: No *Physical Exam - Vital Signs Last Vital Signs Temp Pulse Resp BP Pulse Ox 98.9 F 111 H 17 118/77 99 09/27/17 13:32 09/27/17 13:32 09/27/17 13:32 09/27/17 13:32 09/27/17 13:32 - Physical Exam Comments: 09/27/17 14:18 GENERAL: Well developed, well nourished. Awake and alert. No acute distress. HEENT: Normocephalic, atraumatic. Hearing grossly normal. Moist mucous membranes. PERRLA, EOMI. No conjunctival pallor. Sclera are non-icteric. Oropharynx is clear. NECK: Supple. Full ROM. No JVD. Carotid pulses 2+ and symmetric, without bruits. No thyromegaly. No lymphadenopathy. CARDIOVASCULAR: Regular rate and rhythm. No murmurs, rubs, or gallops. PULMONARY: No evidence of respiratory distress. Lungs clear to auscultation bilaterally. No wheezing, rales or rhonchi. ABDOMINAL: Soft. Non-tender. Non-distended. No rebound or guarding. No organomegaly. Normoactive bowel sounds. GENITOURINARY: No CVA tenderness bilaterally. MUSCULOSKELETAL: Normal range of motion at all joints. No bony deformities or tenderness. EXTREMITIES: No cyanosis. No clubbing. 1+ edema. No calf tenderness. SKIN: Warm and dry. Normal capillary refill. No rashes. No jaundice. NEUROLOGICAL: Alert, awake, appropriate. Cranial nerves 2-12 intact. Normal speech. Gait is normal without ataxia. PSYCHIATRIC: Cooperative. Good eye contact. Appropriate mood and affect. ED Treatment Course - LABORATORY CBC & Chemistry Diagram: 09/27/17 13:49 09/27/17 13:49 Medical Decision Making - Medical Decision Making 09/27/17 14:20 The patient is a 62F with a PMH of multiple myeloma (treated with chemo with Dr. Herrera) who presents with low platelets. Will reorder labs and transfuse as necessary. 09/27/17 21:08 Pt received 2 units of platelets. Hgb slightly decreased 8.4 but cannot receive RBC's d/t presence of multiple Ab's in her blood per blood bank. Pt aware. She knows to return for CP, SOB, fever, chills, nausea, vomiting. She will follow with heme/onc Friday. *DC/Admit/Observation/Transfer Diagnosis at time of Disposition: Thrombocytopenia - Discharge Dispostion Disposition: HOME Condition at time of disposition: Stable Admit: No - Referrals - Patient Instructions Printed Discharge Instructions: Multiple Myeloma Additional Instructions: Please return to the ER if you have any signs or symptoms of chest pain, shortness of breath, uncontrollable fever, chills, nausea, vomiting, numbness, tingling, or weakness in any part of your body, changes in vision, or slurred speech. Please follow up with your primary care physician and heme/onc on Friday. Please return to the ER if symptoms persist, worsen, or new symptoms arise. - Post Discharge Activity
[2017-09-27 14:37] LABS: ALBUMIN 3.3 g/dl (3.4-5.0); ALK PHOS 423 U/L (45-117); ANION GAP 10 (8-16); BILIRUBIN,TOTAL 0.3 mg/dL (0.2-1.0); BLOOD UREA NITROGEN 13 mg/dL (7-18); CALCIUM 7.3 mg/dL (8.5-10.1); CHLORIDE 105 mmol/L (98-107); CO2 28 mmol/L (21-32); CREATININE 0.5 mg/dL (0.55-1.02); GLUCOSE,RANDOM 98 mg/dL (74-106); POTASSIUM 3.9 mmol/L (3.5-5.1); SGOT/AST 26 U/L (15-37); SGPT/ALT 28 U/L (12-78); SODIUM 143 mmol/L (136-145)
--- NOTE | 2017-09-27 14:44 | PDOC ---
Attending Attestation - Resident Resident Name: Koby Harper - ED Attending Attestation I have performed the following: I have examined & evaluated the patient, The case was reviewed & discussed with the resident, I agree w/resident's findings & plan, Exceptions are as noted - HPI HPI: 09/27/17 16:31 62y F hx of MM on chemo, presents to the ED for thrombocytopenia on outpatient labs today. Pt otherwise asymtomatic, denies any cp, sob, bond, hematuria, palpitations, lightheadedness, n/v, bpr, hematuria. pt was sent to ED for patlet transfusion by her claims collector. pt has no other complaints on exam pt well appear in no distress agree w/ resident exam thrombocytopneia w/o any other complaitns or signs of bleeding/anemia will repeat labs and will trasfuse pt with platelets and dc to fu with dr. chase on friday pt slightly tachycardic on arrival will give pt some fluids for hydration - Physicial Exam PE: 09/28/17 14:58 see above - Medical Decision Making 09/28/17 14:58 see above
[2017-09-27 14:48] LABS: HEMATOCRIT 25.4 % (32.4-45.2); HEMOGLOBIN 8.5 GM/dL (10.7-15.3); MCH 35.1 pg (25.7-33.7); MCHC 33.5 g/dl (32.0-36.0); MEAN CELL VOLUME 104.7 fl (80-96); MEAN PLT VOLUME 8.9 fl (7.5-11.1); RBC 2.43 M/mm3 (3.60-5.2); WHITE BLOOD COUNT 4.8 K/mm3 (4.0-10.0)
[2017-09-27 14:54] LABS: PLATELET COUNT 23 K/MM3 (134-434)
[2017-09-27 15:40] LABS: ANISOCYTOSIS 1+; MACROCYTOSIS 1+; PLATELET ESTIMATE DECREASED; TARGET CELLS 1+; TEAR DROP CELLS 1+
[2017-09-27 15:41] LABS: TOXIC GRANULATION 4+
[2017-09-27 22:31] VITALS: BP 134/85; PULSE 99; TEMP 99.3
== END 2017-09-27 21:22 | disposition home or self-care (01) ==
LOC: JER 13:17
DX: D69.6 Thrombocytopenia, unspecified (principal); C90.00 Multiple myeloma not having achieved remission; E89.0 Postprocedural hypothyroidism; D50.9 Iron deficiency anemia, unspecified
CPT/HCPCS: 36415; 36430; 80053; 85025; 86850; 86870; 86900; 86901; 86902; 99281-25; P9034; P9038

== ENCOUNTER 2017-10-01 07:33 | Day surgery (SDC) | payer BC ==
[2017-10-01 11:10] LABS: HEMATOCRIT 19.5 % (32.4-45.2); MCH 35.7 pg (25.7-33.7); MCHC 34.2 g/dl (32.0-36.0); MEAN CELL VOLUME 104.2 fl (80-96); MEAN PLT VOLUME 7.8 fl (7.5-11.1); PLATELET COUNT 52 K/MM3 (134-434); RBC 1.87 M/mm3 (3.60-5.2)
[2017-10-01 11:14] LABS: HEMOGLOBIN 6.7 GM/dL (10.7-15.3)
[2017-10-01 13:06] LABS: ALBUMIN 3.1 g/dl (3.4-5.0); ANION GAP 9 (8-16); BLOOD UREA NITROGEN 11 mg/dL (7-18); CALCIUM 7.2 mg/dL (8.5-10.1); CHLORIDE 110 mmol/L (98-107); CO2 25 mmol/L (21-32); GLUCOSE,RANDOM 87 mg/dL (74-106); MAGNESIUM 1.5 mg/dL (1.8-2.4); POTASSIUM 3.5 mmol/L (3.5-5.1); SODIUM 144 mmol/L (136-145)
[2017-10-01 13:09] LABS: ALK PHOS 416 U/L (45-117); BILIRUBIN,TOTAL 0.2 mg/dL (0.2-1.0); CREATININE 0.4 mg/dL (0.55-1.02); SGOT/AST 20 U/L (15-37); SGPT/ALT 20 U/L (12-78); TOT PROT 5.3 g/dl (6.4-8.2)
[2017-10-01 14:26] LABS: ANISOCYTOSIS 1+; MACROCYTOSIS 1+; OVALOCYTE 1+; PLATELET ESTIMATE DECREASED; TARGET CELLS 1+
[2017-10-01 18:11] VITALS: TEMP 97.9
[2017-10-01] MEDS ORDERED: PORTA CATH FLUSH 10 ML IVPUSH ONE (18:15)
[2017-10-02 02:14] VITALS: BP 114/68; PULSE 87
== END 2017-10-01 22:10 | disposition home or self-care (01) ==
LOC: JONCBLOOD 07:33 → J7W 10:12 → JONCBLOOD 22:10
PROVIDERS: ATTEND Internal Medicine Hematology & Oncology
PROC: 30233N1 Transfusion of Nonautologous Red Blood Cells into Peripheral Vein, Percutaneous Approach (ICD-10-PCS; principal; 2017-10-01)
DX: C90.00 Multiple myeloma not having achieved remission (principal); D64.81 Anemia due to antineoplastic chemotherapy
CPT/HCPCS: 36415; 36430; 80053; 83735; 85025; 86850; 86870; 86900; 86901; 86902; 86922; P9038; P9058

== ENCOUNTER 2017-10-27 08:59 | Inpatient (IN) | payer BC ==
[2017-10-27 12:46] LABS: BASO % 1.1 % (0-2.0); EOS % 0.6 % (0-4.5); HEMATOCRIT 26.5 % (32.4-45.2); HEMOGLOBIN 9.2 GM/dL (10.7-15.3); LYMPH % 5.3 % (8-40); MCHC 34.7 g/dl (32.0-36.0); MEAN CELL VOLUME 100.9 fl (80-96); MEAN PLT VOLUME 8.7 fl (7.5-11.1); MONO % 15.5 % (3.8-10.2); NEUT % 77.5 % (42.8-82.8); PLATELET COUNT 217 K/MM3 (134-434); RBC 2.63 M/mm3 (3.60-5.2); RDW 27.8 % (11.6-15.6)
[2017-10-27 13:10] LABS: ALBUMIN 3.9 g/dl (3.4-5.0); ALK PHOS 161 U/L (45-117); ANION GAP 7 (8-16); BILIRUBIN,TOTAL 0.8 mg/dL (0.2-1.0); BLOOD UREA NITROGEN 7 mg/dL (7-18); CALCIUM 9.7 mg/dL (8.5-10.1); CHLORIDE 106 mmol/L (98-107); CO2 28 mmol/L (21-32); CREATININE 0.6 mg/dL (0.55-1.02); GLUCOSE,RANDOM 112 mg/dL (74-106); MAGNESIUM 1.6 mg/dL (1.8-2.4); POTASSIUM 3.5 mmol/L (3.5-5.1); SGOT/AST 29 U/L (15-37); SGPT/ALT 12 U/L (12-78); SODIUM 141 mmol/L (136-145); TOT PROT 6.4 g/dl (6.4-8.2)
[2017-10-27 13:13] LABS: PREALBUMIN 14.6 mg/dl (20.-40)
[2017-10-27] MEDS ORDERED: ONDANSETRON INJECTION 8 MG in SODIUM CHLORIDE 50 ML IVPB SCH (13:45)
[2017-10-27] MEDS ORDERED: ETOPOSIDE IV ONE (13:45)
[2017-10-27] MEDS ORDERED: DOXORUBICIN HCL IVPB ONE (13:45)
[2017-10-27] MEDS ORDERED: CISPLATIN IV ONE (13:45)
[2017-10-27] MEDS ORDERED: DEXAMETHASONE INJECTION 40 MG in SODIUM CHLORIDE 50 ML IVPB SCH (13:45)
[2017-10-27] MEDS ORDERED: SODIUM CHLORIDE IV ONE (13:45)
[2017-10-27] MEDS ORDERED: CYCLOPHOSPHAMIDE IVPB ONE (13:45)
[2017-10-27] MEDS ORDERED: SODIUM CHLORIDE IVPB ONE (13:45)
[2017-10-27] MEDS ORDERED: SODIUM CHLORIDE 1,000 ML IV SCH ×2 (14:00→15:30)
[2017-10-27 14:07] VITALS: BMI 19.3
[2017-10-27] MEDS: ONDANSETRON INJECTION 8 MG in SODIUM CHLORIDE 50 ML IVPB SCH (15:44)
[2017-10-27] MEDS: DEXAMETHASONE INJECTION 40 MG in SODIUM CHLORIDE 50 ML IVPB SCH (15:58)
--- NOTE | 2017-10-27 16:23 | HP ---
History and Physical History and Physical: PAtient seen and examined 62 y/o patient with relapsed, refractory myeloma, here for salvage chemotherapy with DPACE Feels well Has some swelling and point tenderness over left elbow orbital pain improved---just completed RT today Last Vital Signs Temp Pulse Resp BP Pulse Ox 98.1 F 116 H 20 123/80 97 10/27/17 11:30 10/27/17 11:30 10/27/17 11:30 10/27/17 11:30 10/27/17 13:54 Cor: RSR, No murmurs, No gallops Lungs: Clear to P&A Abd: Soft, Normal bowel sounds, No organomegaly Ext:No significant edema Abnormal Lab Results 10/27/17 10/27/17 12:15 12:15 RBC 2.63 L Hgb 9.2 L Hct 26.5 L MCV 100.9 H MCH 35.0 H RDW 27.8 H Lymphocytes % 5.3 L D Monocytes % 15.5 H D Anion Gap 7 L Random Glucose 112 H Magnesium 1.6 L Alkaline Phosphatase 161 H Prealbumin 14.6 L Active Medications Generic Name Dose Route Start Last Admin Trade Name Freq PRN Reason Stop Dose Admin Cisplatin 13 mg/ Etoposide 35 1,014.75 mls @ 42.281 mls/hr 10/27/17 13:45 mg/ Sodium Chloride IV 10/28/17 13:44 ONCE ONE Cyclophosphamide 360 mg/ 1,022.5 mls @ 42.604 mls/hr 10/27/17 13:45 Doxorubicin HCl 9 mg/ Sodium IVPB 10/28/17 13:44 Chloride ONCE ONE Dexamethasone Sodium Phosphate 54 mls @ 216 mls/hr 10/27/17 16:00 10/27/17 15 :58 40 mg/ Sodium Chloride IVPB 10/30/17 16:14 216 mls/hr Q24H TANIYA Administration Ondansetron HCl 8 mg/ Sodium 54 mls @ 216 mls/hr 10/27/17 16:00 10/27/17 15: 44 Chloride IVPB 11/01/17 04:14 216 mls/hr Q12H TANIYA Administration Sodium Chloride 1,000 mls @ 125 mls/hr 10/27/17 15:30 Normal Saline - IV ASDIR TANIYA Cisplatin 13 mg/ Etoposide 35 1,014.75 mls @ 42.281 mls/hr 10/28/17 16:30 mg/ Sodium Chloride IV 10/29/17 16:29 ONCE ONE Cyclophosphamide 360 mg/ 1,022.5 mls @ 42.604 mls/hr 10/28/17 16:30 Doxorubicin HCl 9 mg/ Sodium IVPB 10/29/17 16:29 Chloride ONCE ONE A/P 62 y/o patient with relapsed/refractory myeloma , comes in for elective DPACE therapy On allopurinol/hydration just completed orbital RT for C2 D1 today duplex 08/22/17 was negative will get Xray Left elbow prior to d/c review recent PEt-CT
[2017-10-27] MEDS ORDERED: FENTANYL PATCH WASTE MC PRN (17:47)
[2017-10-27] MEDS ORDERED: fentaNYL 25mcg/hr PATCH.TD72 TD SCH (18:00)
[2017-10-27] MEDS ORDERED: MAGNESIUM SULF 50% (8.12 MEQ/2 ML-1 GM VIAL) IVPB ONE (18:01)
[2017-10-27] MEDS ORDERED: MAGNESIUM SULFATE IN WATER 2 GM/50 ML IVPB IVPB ONE (18:15)
[2017-10-27] MEDS: SODIUM CHLORIDE 1,000 ML IV SCH ×2 (19:29→22:26)
[2017-10-27] MEDS: CARVEDILOL 3.125 MG TABLET (FP) PO SCH (22:20)
[2017-10-28] MEDS: ONDANSETRON INJECTION 8 MG in SODIUM CHLORIDE 50 ML IVPB SCH ×2 (03:54→16:27)
[2017-10-28] MEDS: LEVOTHYROXINE NA 125 MCG TABLET (FP) PO SCH (06:21)
[2017-10-28 07:27] LABS: BASO % 0.4 % (0-2.0); EOS % 0.1 % (0-4.5); HEMATOCRIT 23.7 % (32.4-45.2); HEMOGLOBIN 8.1 GM/dL (10.7-15.3); LYMPH % 4.3 % (8-40); MCH 34.5 pg (25.7-33.7); MCHC 34.3 g/dl (32.0-36.0); MEAN CELL VOLUME 100.4 fl (80-96); MEAN PLT VOLUME 8.4 fl (7.5-11.1); MONO % 4.9 % (3.8-10.2); NEUT % 90.3 % (42.8-82.8); PLATELET COUNT 195 K/MM3 (134-434); RBC 2.36 M/mm3 (3.60-5.2); RDW 27.6 % (11.6-15.6); WHITE BLOOD COUNT 4.1 K/mm3 (4.0-10.0)
[2017-10-28 07:56] LABS: CHLORIDE 113 mmol/L (98-107); POTASSIUM 3.9 mmol/L (3.5-5.1); SODIUM 146 mmol/L (136-145)
[2017-10-28] MEDS ORDERED: PT OWN MED DRAWER 7, Y5N ONE ×4 (07:59→20:47)
[2017-10-28 08:06] LABS: ALBUMIN 3.1 g/dl (3.4-5.0); ALK PHOS 130 U/L (45-117); ANION GAP 8 (8-16); BILIRUBIN,TOTAL 0.5 mg/dL (0.2-1.0); BLOOD UREA NITROGEN 10 mg/dL (7-18); CALCIUM 8.3 mg/dL (8.5-10.1); CO2 25 mmol/L (21-32); CREATININE 0.4 mg/dL (0.55-1.02); GLUCOSE,RANDOM 137 mg/dL (74-106); LDH 213 U/L (84-246); MAGNESIUM 2.3 mg/dL (1.8-2.4); SGOT/AST 23 U/L (15-37); SGPT/ALT 9 U/L (12-78); TOT PROT 5.5 g/dl (6.4-8.2); URIC ACID 2.8 mg/dL (2.6-7.2)
[2017-10-28] MEDS: CARVEDILOL 3.125 MG TABLET (FP) PO SCH ×2 (09:45→21:41)
[2017-10-28] MEDS: ALLOPURINOL 300 MG TABLET (FP) PO SCH (09:45)
[2017-10-28] MEDS: PANTOPRAZOLE 40 MG TABLET (FP) PO SCH (09:46)
[2017-10-28] MEDS: LISINOPRIL 5 MG TABLET (FP) PO SCH (09:46)
[2017-10-28] MEDS: ACYCLOVIR 400 MG TABLET PO SCH (09:47)
[2017-10-28] MEDS ORDERED: fentaNYL 25mcg/hr PATCH.TD72 TD SCH (10:00)
--- NOTE | 2017-10-28 10:54 | PN ---
Progress Note (short form) - Note Progress Note: denies any complains orbit pain better Cor: RSR, No murmurs, No gallops Lungs: Clear to P&A Abd: Soft, Normal bowel sounds, No organomegaly Ext:No significant edema Last Vital Signs Temp Pulse Resp BP Pulse Ox 97.9 F 89 20 123/77 95 10/28/17 03:56 10/28/17 03:56 10/28/17 03:56 10/28/17 03:56 10/27/17 21:00 CBC, BMP 10/28/17 06:00 10/28/17 06:00 Current Medications Generic Name Dose Route Start Last Admin Trade Name Freq PRN Reason Stop Dose Admin Acyclovir 400 mg 10/28/17 10:00 10/28/17 09:47 Zovirax - PO 400 mg DAILY TANIYA Administration Allopurinol 300 mg 10/28/17 10:00 10/28/17 09:45 Zyloprim - PO 300 mg DAILY TANIYA Administration Carvedilol 3.125 mg 10/27/17 22:00 10/28/17 09:45 Coreg - PO 3.125 mg BID TANIYA Administration Fentanyl 1 patch 10/28/17 22:00 Duragesic 50mcg Patch - TD 11/04/17 10:22 Q72H TANIYA Cisplatin 13 mg/ Etoposide 35 1,014.75 mls @ 42.281 mls/hr 10/27/17 13:45 01/07 16:44 mg/ Sodium Chloride IV 10/28/17 13:44 42.281 mls/hr ONCE ONE Administration Cyclophosphamide 360 mg/ 1,022.5 mls @ 42.604 mls/hr 10/27/17 13:45 10/27/17 16:42 Doxorubicin HCl 9 mg/ Sodium IVPB 10/28/17 13:44 42.604 mls/hr Chloride ONCE ONE Administration Dexamethasone Sodium Phosphate 54 mls @ 216 mls/hr 10/27/17 16:00 10/27/17 15 :58 40 mg/ Sodium Chloride IVPB 10/30/17 16:14 216 mls/hr Q24H TANIYA Administration Ondansetron HCl 8 mg/ Sodium 54 mls @ 216 mls/hr 10/27/17 16:00 10/28/17 03: 54 Chloride IVPB 11/01/17 04:14 216 mls/hr Q12H TANIYA Administration Cisplatin 13 mg/ Etoposide 35 1,014.75 mls @ 42.281 mls/hr 10/28/17 16:30 mg/ Sodium Chloride IV 10/29/17 16:29 ONCE ONE Cyclophosphamide 360 mg/ 1,022.5 mls @ 42.604 mls/hr 10/28/17 16:30 Doxorubicin HCl 9 mg/ Sodium IVPB 10/29/17 16:29 Chloride ONCE ONE Sodium Chloride 1,000 mls @ 75 mls/hr 10/27/17 18:01 10/27/17 22:26 Normal Saline - IV 75 mls/hr ASDIR TANIYA Administration Levothyroxine Sodium 125 mcg 10/28/17 07:00 10/28/17 06:21 Synthroid - PO 125 mcg DAILY@0700 TANIYA Administration Lisinopril 2.5 mg 10/28/17 10:00 10/28/17 09:46 Prinivil PO 2.5 mg DAILY TANIYA Administration Miscellaneous 1 each 10/28/17 10:22 Duragesic Patch Waste TD PRN PRN PAIN Pantoprazole Sodium 40 mg 10/28/17 10:00 10/28/17 09:46 Protonix - PO 40 mg DAILY TANIYA Administration 62 y/o patient with relapsed/refractory myeloma , comes in for elective DPACE therapy completed orbital RT yesterday. for C2D2 today. labs checked today---> will assess for prbcs transfusion tomorrow. On allopurinol/hydration-->will continue, monitor Na. OI ppx: prior to DC pain control : fentanyl patch will get Xray Left elbow prior to d/c.
[2017-10-28] MEDS: SODIUM CHLORIDE 1,000 ML IV SCH (11:51)
[2017-10-28] MEDS ORDERED: ETOPOSIDE IV ONE (16:30)
[2017-10-28] MEDS ORDERED: DOXORUBICIN HCL IVPB ONE (16:30)
[2017-10-28] MEDS ORDERED: SODIUM CHLORIDE IV ONE (16:30)
[2017-10-28] MEDS ORDERED: SODIUM CHLORIDE IVPB ONE (16:30)
[2017-10-28] MEDS ORDERED: CYCLOPHOSPHAMIDE IVPB ONE (16:30)
[2017-10-28] MEDS ORDERED: CISPLATIN IV ONE (16:30)
[2017-10-28] MEDS: DEXAMETHASONE INJECTION 40 MG in SODIUM CHLORIDE 50 ML IVPB SCH (16:42)
[2017-10-28] MEDS: fentaNYL 50mcg/hr PATCH.TD72 TD SCH (21:42)
[2017-10-28] MEDS: FENTANYL PATCH WASTE TD PRN (21:49)
[2017-10-29] MEDS: SODIUM CHLORIDE 1,000 ML IV SCH ×2 (00:39→19:34)
[2017-10-29] MEDS: ONDANSETRON INJECTION 8 MG in SODIUM CHLORIDE 50 ML IVPB SCH ×2 (03:28→16:39)
[2017-10-29] MEDS: LEVOTHYROXINE NA 125 MCG TABLET (FP) PO SCH (06:01)
[2017-10-29] MEDS ORDERED: PT OWN MED DRAWER 7, Y5N ONE (09:57)
[2017-10-29] MEDS: PANTOPRAZOLE 40 MG TABLET (FP) PO SCH (10:01)
[2017-10-29] MEDS: CARVEDILOL 3.125 MG TABLET (FP) PO SCH ×2 (10:01→23:42)
[2017-10-29] MEDS: LISINOPRIL 5 MG TABLET (FP) PO SCH (10:01)
[2017-10-29] MEDS: ALLOPURINOL 300 MG TABLET (FP) PO SCH (10:01)
[2017-10-29] MEDS: ACYCLOVIR 400 MG TABLET PO SCH (10:02)
[2017-10-29 10:57] LABS: BASO % 0.2 % (0-2.0); LYMPH % 2.7 % (8-40); MCH 34.2 pg (25.7-33.7); MCHC 33.2 g/dl (32.0-36.0); MEAN PLT VOLUME 7.9 fl (7.5-11.1); NEUT % 81.1 % (42.8-82.8); PLATELET COUNT 172 K/MM3 (134-434); RBC 2.33 M/mm3 (3.60-5.2); WHITE BLOOD COUNT 6.1 K/mm3 (4.0-10.0)
[2017-10-29 11:34] LABS: ALBUMIN 3.2 g/dl (3.4-5.0); ANION GAP 8 (8-16); BLOOD UREA NITROGEN 10 mg/dL (7-18); CALCIUM 8.1 mg/dL (8.5-10.1); CHLORIDE 114 mmol/L (98-107); CO2 24 mmol/L (21-32); CREATININE 0.6 mg/dL (0.55-1.02); GLUCOSE,RANDOM 115 mg/dL (74-106); POTASSIUM 4.1 mmol/L (3.5-5.1); SGOT/AST 72 U/L (15-37); SGPT/ALT 49 U/L (12-78); SODIUM 146 mmol/L (136-145); TOT PROT 5.4 g/dl (6.4-8.2)
[2017-10-29 11:37] LABS: ALK PHOS 121 U/L (45-117); BILIRUBIN,TOTAL 0.4 mg/dL (0.2-1.0)
[2017-10-29] MEDS ORDERED: SODIUM CHLORIDE IVPB ONE (16:30)
[2017-10-29] MEDS ORDERED: DOXORUBICIN HCL IVPB ONE (16:30)
[2017-10-29] MEDS ORDERED: CYCLOPHOSPHAMIDE IVPB ONE (16:30)
[2017-10-29] MEDS ORDERED: CISPLATIN IV ONE (16:30)
[2017-10-29] MEDS ORDERED: ETOPOSIDE IV ONE (16:30)
[2017-10-29] MEDS ORDERED: SODIUM CHLORIDE IV ONE (16:30)
[2017-10-29] MEDS: DEXAMETHASONE INJECTION 40 MG in SODIUM CHLORIDE 50 ML IVPB SCH (17:11)
[2017-10-29] MEDS ORDERED: PORTA CATH FLUSH 10 ML IVPUSH ONE (18:17)
[2017-10-29] MEDS ORDERED: FUROSEMIDE 40 MG/4 ML INJECTABLE VIAL IVPUSH ONE (23:45)
[2017-10-30] MEDS: SODIUM CHLORIDE 1,000 ML IV SCH (04:20)
[2017-10-30] MEDS: ONDANSETRON INJECTION 8 MG in SODIUM CHLORIDE 50 ML IVPB SCH ×2 (04:20→21:46)
[2017-10-30] MEDS: LEVOTHYROXINE NA 125 MCG TABLET (FP) PO SCH (06:30)
[2017-10-30 08:04] LABS: BASO % 0.1 % (0-2.0); HEMATOCRIT 22.8 % (32.4-45.2); HEMOGLOBIN 7.8 GM/dL (10.7-15.3); LYMPH % 1.8 % (8-40); MCH 34.5 pg (25.7-33.7); MCHC 34.3 g/dl (32.0-36.0); MEAN CELL VOLUME 100.5 fl (80-96); MEAN PLT VOLUME 8.6 fl (7.5-11.1); MONO % 8.1 % (3.8-10.2); PLATELET COUNT 168 K/MM3 (134-434); RBC 2.27 M/mm3 (3.60-5.2); RDW 27.6 % (11.6-15.6); WHITE BLOOD COUNT 6.7 K/mm3 (4.0-10.0)
[2017-10-30 08:48] LABS: CHLORIDE 112 mmol/L (98-107); POTASSIUM 3.4 mmol/L (3.5-5.1); SODIUM 147 mmol/L (136-145)
[2017-10-30 09:05] LABS: ALBUMIN 3.2 g/dl (3.4-5.0); ALK PHOS 112 U/L (45-117); ANION GAP 8 (8-16); BILIRUBIN,TOTAL 0.8 mg/dL (0.2-1.0); BLOOD UREA NITROGEN 14 mg/dL (7-18); CALCIUM 7.7 mg/dL (8.5-10.1); CO2 27 mmol/L (21-32); CREATININE 0.4 mg/dL (0.55-1.02); GLUCOSE,RANDOM 111 mg/dL (74-106); SGOT/AST 42 U/L (15-37); SGPT/ALT 40 U/L (12-78); TOT PROT 5.3 g/dl (6.4-8.2)
[2017-10-30] MEDS ORDERED: PT OWN MED DRAWER 7, Y5N ONE (09:59)
[2017-10-30] MEDS ORDERED: FUROSEMIDE 40 MG/4 ML INJECTABLE VIAL IVPB ONE (10:10)
[2017-10-30] MEDS: CARVEDILOL 3.125 MG TABLET (FP) PO SCH ×2 (10:11→21:08)
[2017-10-30] MEDS: LISINOPRIL 5 MG TABLET (FP) PO SCH (10:11)
[2017-10-30] MEDS: ALLOPURINOL 300 MG TABLET (FP) PO SCH (10:11)
[2017-10-30] MEDS: ACYCLOVIR 400 MG TABLET PO SCH (10:12)
[2017-10-30] MEDS ORDERED: FUROSEMIDE 40 MG/4 ML INJECTABLE VIAL IVPB SCH (11:15)
[2017-10-30] MEDS: PANTOPRAZOLE 40 MG TABLET (FP) PO SCH (12:04)
[2017-10-30] MEDS ORDERED: PROCHLORPERAZINE INJECTION 10 MG/2 ML VIAL IVPB PRN (12:51)
[2017-10-30] MEDS: ASPIRIN 81 MG CHEWABLE TABLETS PO SCH (14:26)
--- NOTE | 2017-10-30 15:06 | CONSULT ---
Consult - text type - Consultation Consultation Note: Renal Consult for Hypernatremia This is a 62 year old woman with PMhx of Multiple Myloma who presented for inpatient chemo with Na of 147. Pt denies any history of kidney disease. She does have Nausea and poor oral intake along with 1-2 loose BM's daily. She however with the Chemo and fluid infusions have been feeling congested and required IV Lasix yesterday with large volume of uirne output. No SOB or chest pain right now. No fever, chills. No Abd pain. Good urine output. PMhx: as above Allergies: NKDA Family Hx: NC Social Hx: No T/A/D ROS: as per HPI Home Medications Medication Instructions Recorded FENTANYL 25mcg PATCH [DURAGESIC 50 mcg TD Q72H 09/04/17 25mcg PATCH -] Acyclovir [Zovirax -] 400 mg PO DAILY 10/27/17 Allopurinol 300 mg PO DAILY 10/27/17 Carvedilol [Coreg -] 3.125 mg PO BID 10/27/17 Hydrocodone-Ibuprofen 7.5-200 7.5 - 200 mg PO TID PRN 10/27/17 Levothyroxine [Synthroid -] 125 mcg PO DAILY 10/27/17 Lisinopril [Zestril] 2.5 mg PO DAILY 10/27/17 Pantoprazole Sodium [Protonix] 40 mg PO DAILY 10/27/17 Vital Signs Temperature 97.9 F 10/30/17 14:17 Pulse Rate 60 10/30/17 14:17 Respiratory Rate 20 10/30/17 14:17 Blood Pressure 143/67 10/30/17 14:17 O2 Sat by Pulse Oximetry (%) 94 L 10/30/17 10:00 Intake & Output 10/27/17 10/28/17 10/29/17 10/30/17 23:59 23:59 23:59 23:59 Intake Total 100 3275 4222 2140 Output Total 300 755 520 1602 Balance -200 2725 3772 -510 Weight 52.39 kg NAD awake and alert RRR, No M/R + rales left lower lobe no LE edema CBC, BMP 10/30/17 06:00 10/30/17 06:00 Laboratory Tests 10/30/17 06:00 Calcium 7.7 L Albumin 3.2 L Current Medications Acyclovir (Zovirax -) 400 mg PO DAILY [facility] Last Admin: 10/30/17 10:12 Dose: 400 mg Allopurinol (Zyloprim -) 300 mg PO DAILY [facility] Last Admin: 10/30/17 10:11 Dose: 300 mg Aspirin (Asa -) 81 mg PO DAILY [facility] Last Admin: 10/30/17 14:26 Dose: 81 mg Carvedilol (Coreg -) 3.125 mg PO BID [facility] Last Admin: 10/30/17 10:11 Dose: 3.125 mg Fentanyl (Duragesic 50mcg Patch -) 1 patch TD Q72H [facility] Stop: 11/04/17 10:22 Last Admin: 10/28/17 21:42 Dose: 1 patch Furosemide (Lasix Injection -) 20 mg IVPB DRAFTING CLERK [facility] Stop: 10/30/17 18:00 Dexamethasone Sodium Phosphate (40 mg/ Sodium Chloride) 54 mls @ 216 mls/hr IVPB Q24H [facility] Stop: 10/30/17 16:14 Last Admin: 10/29/17 17:11 Dose: 216 mls/hr Ondansetron HCl 8 mg/ Sodium (Chloride) 54 mls @ 216 mls/hr IVPB Q12H [facility] Stop: 11/01/17 04:14 Last Admin: 10/30/17 04:20 Dose: 216 mls/hr Cisplatin 13 mg/ Etoposide 35 (mg/ Sodium Chloride) 1,014.75 mls @ 42.281 mls/ hr IV ONCE ONE Stop: 10/30/17 16:29 Last Admin: 10/29/17 17:48 Dose: 42.281 mls/hr Cyclophosphamide 360 mg/Doxorubicin HCl 9 mg/ Sodium Chloride 1,022.5 mls @ 42.604 mls/hr IVPB ONCE ONE Stop: 10/30/17 16:29 Last Admin: 10/29/17 17:53 Dose: 42.604 mls/hr Cisplatin 13 mg/ Etoposide 35 (mg/ Sodium Chloride) 1,014.75 mls @ 42.281 mls/ hr IV ONCE ONE Stop: 10/31/17 16:29 Cyclophosphamide 360 mg/Doxorubicin HCl 9 mg/ Sodium Chloride 1,022.5 mls @ 42.604 mls/hr IVPB ONCE ONE Stop: 10/31/17 16:29 Levothyroxine Sodium (Synthroid -) 125 mcg PO DAILY@0700 [facility] Last Admin: 10/30/17 06:30 Dose: 125 mcg Lisinopril (Prinivil) 2.5 mg PO DAILY [facility] Last Admin: 10/30/17 10:11 Dose: 2.5 mg Miscellaneous (Duragesic Patch Waste) 1 each TD PRN PRN PRN Reason: PAIN Last Admin: 10/28/17 21:49 Dose: 1 each Pantoprazole Sodium (Protonix -) 40 mg PO DAILY [facility] Last Admin: 10/30/17 12:04 Dose: 40 mg Prochlorperazine Edisylate (Compazine Injection -) 10 mg IVPB Q4H PRN PRN Reason: NAUSEA AND/OR VOMITING Last Admin: 10/30/17 14:16 Dose: 10 mg 62 year old woman with PMhx of Multiple Myloma who presented for inpatient chemo with Na of 147. #Hypernatremia in setting of large volume saline infusion + water loss from diuretics and GI losses #Multiple Myloma Water deficit is 1.6L As pt has signs of mild volume overload (rales, chest congestion that required dialysis) would at this time attempt to minimize saline infusion and encourage oral water intake. Pt's Chemo is diluted in 2L of NS and currently has NS running at the same time. would D/c additional Saline infusion (discussed with Oncology) Encouraged at least 1L of free water intake orally in 24 hours can given PRN Lasix as needed at serum Na of 147 pt unlikely to have acute acute symptoms and serum Na may normalize off large volume saline infusion. repeat BMP in the morning. Thank you Travis Louis DO
[2017-10-30] MEDS ORDERED: SODIUM CHLORIDE IV ONE (16:30)
[2017-10-30] MEDS ORDERED: CISPLATIN IV ONE (16:30)
[2017-10-30] MEDS ORDERED: CYCLOPHOSPHAMIDE IVPB ONE (16:30)
[2017-10-30] MEDS ORDERED: ETOPOSIDE IV ONE (16:30)
[2017-10-30] MEDS ORDERED: DOXORUBICIN HCL IVPB ONE (16:30)
[2017-10-30] MEDS ORDERED: SODIUM CHLORIDE IVPB ONE (16:30)
--- NOTE | 2017-10-30 17:12 | PN ---
Progress Note (short form) - Note Progress Note: seen and examined +elbow pain Cor: RSR, No murmurs, No gallops Lungs: Clear to P&A Abd: Soft, Normal bowel sounds, No organomegaly Ext:No significant edema Last Vital Signs Temp Pulse Resp BP Pulse Ox 97.9 F 60 20 143/67 94 L 10/30/17 14:17 10/30/17 14:17 10/30/17 14:17 10/30/17 14:17 10/30/17 10:00 CBC, BMP 10/30/17 06:00 10/30/17 06:00 Current Medications Generic Name Dose Route Start Last Admin Trade Name Freq PRN Reason Stop Dose Admin Acyclovir 400 mg 10/28/17 10:00 10/30/17 10:12 Zovirax - PO 400 mg DAILY [facility] Administration Allopurinol 300 mg 10/28/17 10:00 10/30/17 10:11 Zyloprim - PO 300 mg DAILY [facility] Administration Aspirin 81 mg 10/30/17 13:15 10/30/17 14:26 Asa - PO 81 mg DAILY [facility] Administration Carvedilol 3.125 mg 10/27/17 22:00 10/30/17 10:11 Coreg - PO 3.125 mg BID [facility] Administration Fentanyl 1 patch 10/28/17 22:00 10/28/17 21:42 Duragesic 50mcg Patch - TD 11/04/17 10:22 1 patch Q72H [facility] Administration Furosemide 20 mg 10/30/17 11:15 Lasix Injection - IVPB 10/30/17 18:00 LAB CLERK [facility] Ondansetron HCl 8 mg/ Sodium 54 mls @ 216 mls/hr 10/27/17 16:00 10/30/17 04: 20 Chloride IVPB 11/01/17 04:14 216 mls/hr Q12H [facility] Administration Cisplatin 13 mg/ Etoposide 35 1,014.75 mls @ 42.281 mls/hr 10/30/17 16:30 mg/ Sodium Chloride IV 10/31/17 16:29 ONCE ONE Cyclophosphamide 360 mg/ 1,022.5 mls @ 42.604 mls/hr 10/30/17 16:30 Doxorubicin HCl 9 mg/ Sodium IVPB 10/31/17 16:29 Chloride ONCE ONE Levothyroxine Sodium 125 mcg 10/28/17 07:00 10/30/17 06:30 Synthroid - PO 125 mcg DAILY@0700 [facility] Administration Lisinopril 2.5 mg 10/28/17 10:00 10/30/17 10:11 Prinivil PO 2.5 mg DAILY [facility] Administration Miscellaneous 1 each 10/28/17 10:22 10/28/17 21:49 Duragesic Patch Waste TD 1 each PRN PRN Administration PAIN Pantoprazole Sodium 40 mg 10/28/17 10:00 10/30/17 12:04 Protonix - PO 40 mg DAILY [facility] Administration Prochlorperazine Edisylate 10 mg 10/30/17 12:51 10/30/17 14:16 Compazine Injection - IVPB 10 mg Q4H PRN Administration NAUSEA AND/OR VOMITING 62 y/o patient with relapsed/refractory myeloma , comes in for elective [facility]ACE therapy will complete therapy tomorrow On OI Ppx elbow pain: large lytic lesion present on xray- discussed with pt-- Pal XRT as an OP once done with chemo ( d.w ). d/w pt about sling and Non- weight bearing, pt refused sling and mentioned that she would prefer to be cautious than wearing a sling. HyperNa: appreciate renal c/s. will follow recs. Anemia: in the setting of chemotherapy--give PRBCs today. Advised Neupogen from over the weekend and on friday, she comes for CBC check.
[2017-10-30] MEDS: DEXAMETHASONE INJECTION 40 MG in SODIUM CHLORIDE 50 ML IVPB SCH (21:30)
[2017-10-31] MEDS: ONDANSETRON INJECTION 8 MG in SODIUM CHLORIDE 50 ML IVPB SCH ×3 (04:20→15:54)
[2017-10-31] MEDS: LEVOTHYROXINE NA 125 MCG TABLET (FP) PO SCH (06:20)
[2017-10-31 07:09] LABS: BASO % 0.2 % (0-2.0); HEMATOCRIT 27.7 % (32.4-45.2); HEMOGLOBIN 9.8 GM/dL (10.7-15.3); LYMPH % 1.3 % (8-40); MCH 34.4 pg (25.7-33.7); MCHC 35.2 g/dl (32.0-36.0); MEAN CELL VOLUME 97.6 fl (80-96); MEAN PLT VOLUME 8.4 fl (7.5-11.1); MONO % 1.4 % (3.8-10.2); NEUT % 97.1 % (42.8-82.8); PLATELET COUNT 171 K/MM3 (134-434); RBC 2.84 M/mm3 (3.60-5.2); RDW 24.7 % (11.6-15.6); WHITE BLOOD COUNT 6.2 K/mm3 (4.0-10.0)
[2017-10-31 07:18] LABS: ALBUMIN 3.4 g/dl (3.4-5.0); ANION GAP 8 (8-16); BLOOD UREA NITROGEN 15 mg/dL (7-18); CALCIUM 7.3 mg/dL (8.5-10.1); CHLORIDE 105 mmol/L (98-107); CO2 30 mmol/L (21-32); POTASSIUM 3.2 mmol/L (3.5-5.1); SODIUM 143 mmol/L (136-145)
[2017-10-31 07:24] LABS: ALK PHOS 122 U/L (45-117); BILIRUBIN,TOTAL 1.5 mg/dL (0.2-1.0); CREATININE 0.5 mg/dL (0.55-1.02); GLUCOSE,RANDOM 134 mg/dL (74-106); SGOT/AST 37 U/L (15-37); SGPT/ALT 34 U/L (12-78); TOT PROT 5.6 g/dl (6.4-8.2)
[2017-10-31] MEDS ORDERED: POTASSIUM CHLORIDE TABS 20 MEQ TABLET.ER (FP) PO ONE (09:15)
[2017-10-31] MEDS ORDERED: PT OWN MED DRAWER 7, Y5N ONE (09:32)
[2017-10-31] MEDS: ASPIRIN 81 MG CHEWABLE TABLETS PO SCH (09:51)
[2017-10-31] MEDS: ALLOPURINOL 300 MG TABLET (FP) PO SCH (09:51)
[2017-10-31] MEDS: PANTOPRAZOLE 40 MG TABLET (FP) PO SCH (09:51)
[2017-10-31] MEDS: CARVEDILOL 3.125 MG TABLET (FP) PO SCH (09:51)
[2017-10-31] MEDS: ACYCLOVIR 400 MG TABLET PO SCH (09:52)
[2017-10-31] MEDS: LISINOPRIL 5 MG TABLET (FP) PO SCH (09:52)
--- NOTE | 2017-10-31 10:09 | PN ---
Progress Note (short form) - Note Progress Note: Patient seen and examined Continuing on chemotherapy Tolerating well to date Complains of pain in left olecranon area Last Vital Signs Temp Pulse Resp BP Pulse Ox 98.0 F 63 20 148/76 94 L 10/31/17 06:06 10/31/17 06:06 10/31/17 06:06 10/31/17 06:06 10/30/17 21:00 HEENT: MELANY, EOM Intact Oropharynx: No thrush, No mucositis Neck: Supple Nodes: Without adenopathy Cor: RSR, No murmurs, No gallops Lungsfew rales at bases Abd: Soft, Normal bowel sounds, No organomegaly Ext:No significant edema Skin: No rashes, Integument intact CBC, BMP 10/31/17 06:00 10/31/17 06:00 Current Medications Generic Name Dose Route Start Last Admin Trade Name Freq PRN Reason Stop Dose Admin Acyclovir 400 mg 10/28/17 10:00 10/31/17 09:52 Zovirax - PO 400 mg DAILY [facility] Administration Allopurinol 300 mg 10/28/17 10:00 10/31/17 09:51 Zyloprim - PO 300 mg DAILY [facility] Administration Aspirin 81 mg 10/30/17 13:15 10/31/17 09:51 Asa - PO 81 mg DAILY [facility] Administration Carvedilol 3.125 mg 10/27/17 22:00 10/31/17 09:51 Coreg - PO 3.125 mg BID [facility] Administration Fentanyl 1 patch 10/28/17 22:00 10/28/17 21:42 Duragesic 50mcg Patch - TD 11/04/17 10:22 1 patch Q72H [facility] Administration Ondansetron HCl 8 mg/ Sodium 54 mls @ 216 mls/hr 10/27/17 16:00 10/31/17 09: 54 Chloride IVPB 11/01/17 04:14 216 mls/hr Q12H [facility] Administration Cisplatin 13 mg/ Etoposide 35 1,014.75 mls @ 42.281 mls/hr 10/30/17 16:30 04/09 22:15 mg/ Sodium Chloride IV 10/31/17 16:29 42.281 mls/hr ONCE ONE Administration Cyclophosphamide 360 mg/ 1,022.5 mls @ 42.604 mls/hr 10/30/17 16:30 10/30/17 22:14 Doxorubicin HCl 9 mg/ Sodium IVPB 10/31/17 16:29 42.604 mls/hr Chloride ONCE ONE Administration Levothyroxine Sodium 125 mcg 10/28/17 07:00 10/31/17 06:20 Synthroid - PO 125 mcg DAILY@0700 [facility] Administration Lisinopril 2.5 mg 10/28/17 10:00 10/31/17 09:52 Prinivil PO 2.5 mg DAILY [facility] Administration Miscellaneous 1 each 10/28/17 10:22 10/28/17 21:49 Duragesic Patch Waste TD 1 each PRN PRN Administration PAIN Pantoprazole Sodium 40 mg 10/28/17 10:00 10/31/17 09:51 Protonix - PO 40 mg DAILY [facility] Administration Prochlorperazine Edisylate 10 mg 10/30/17 12:51 10/30/17 14:16 Compazine Injection - IVPB 10 mg Q4H PRN Administration NAUSEA AND/OR VOMITING Impression: Myeloma - not in remission D-PACE chemotherapy Olecranon metastases - for RT (spoke with RT) Anemia Hypokalemia- replete K+ Plan: completion of Chemotherapy RT to olecranon area Cipro and neupogen to begin 10/31.
--- NOTE | 2017-10-31 13:09 | PN ---
Progress Note (short form) - Note Progress Note: Renal follow up for hypernatremia Pt seen and examined at the bedside awake and alert no acute complaints tolerating oral diet and fluid intake for discharge home today Vital Signs Temperature 98 F 10/31/17 10:00 Pulse Rate 80 10/31/17 10:00 Respiratory Rate 20 10/31/17 10:00 Blood Pressure 142/86 10/31/17 10:00 O2 Sat by Pulse Oximetry (%) 94 L 10/31/17 09:00 Intake & Output 10/28/17 10/29/17 10/30/17 10/31/17 23:59 23:59 23:59 23:59 Intake Total 3275 4222 5412 1150 Output Total 550 1400 5700 900 Balance 2725 2822 -288 250 NAD awake and alert RRR, No M/R + rales left lower lobe no LE edema CBC, BMP 10/31/17 06:00 10/31/17 06:00 Laboratory Tests 10/31/17 06:00 Calcium 7.3 L Albumin 3.4 Current Medications Acyclovir (Zovirax -) 400 mg PO DAILY [facility] Last Admin: 10/31/17 09:52 Dose: 400 mg Allopurinol (Zyloprim -) 300 mg PO DAILY [facility] Last Admin: 10/31/17 09:51 Dose: 300 mg Aspirin (Asa -) 81 mg PO DAILY [facility] Last Admin: 10/31/17 09:51 Dose: 81 mg Carvedilol (Coreg -) 3.125 mg PO BID [facility] Last Admin: 10/31/17 09:51 Dose: 3.125 mg Fentanyl (Duragesic 50mcg Patch -) 1 patch TD Q72H [facility] Stop: 11/04/17 10:22 Last Admin: 10/28/17 21:42 Dose: 1 patch Ondansetron HCl 8 mg/ Sodium (Chloride) 54 mls @ 216 mls/hr IVPB Q12H [facility] Stop: 11/01/17 04:14 Last Admin: 10/31/17 09:54 Dose: 216 mls/hr Cisplatin 13 mg/ Etoposide 35 (mg/ Sodium Chloride) 1,014.75 mls @ 42.281 mls/ hr IV ONCE ONE Stop: 10/31/17 16:29 Last Admin: 10/30/17 22:15 Dose: 42.281 mls/hr Cyclophosphamide 360 mg/Doxorubicin HCl 9 mg/ Sodium Chloride 1,022.5 mls @ 42.604 mls/hr IVPB ONCE ONE Stop: 10/31/17 16:29 Last Admin: 10/30/17 22:14 Dose: 42.604 mls/hr Levothyroxine Sodium (Synthroid -) 125 mcg PO DAILY@0700 [facility] Last Admin: 10/31/17 06:20 Dose: 125 mcg Lisinopril (Prinivil) 2.5 mg PO DAILY [facility] Last Admin: 10/31/17 09:52 Dose: 2.5 mg Miscellaneous (Duragesic Patch Waste) 1 each TD PRN PRN PRN Reason: PAIN Last Admin: 10/28/17 21:49 Dose: 1 each Pantoprazole Sodium (Protonix -) 40 mg PO DAILY [facility] Last Admin: 10/31/17 09:51 Dose: 40 mg Prochlorperazine Edisylate (Compazine Injection -) 10 mg IVPB Q4H PRN PRN Reason: NAUSEA AND/OR VOMITING Last Admin: 10/30/17 14:16 Dose: 10 mg 62 year old woman with PMhx of Multiple Myloma who presented for inpatient chemo with Na of 147. #Hypernatremia in setting of large volume saline infusion + water loss from diuretics and GI losses #Multiple Myloma #Hypokalemia Serum Na improved oral intake as tolerated upon discharge water intake as per thirst can continue PRN lasix as needed Give KCl PO for Hypokalmeia to have labs repeated with PMD/[place] as outpatient Thank you Travis Louis DO
[2017-10-31 18:44] VITALS: BP 151/77; PULSE 62; TEMP 98.3
[2017-10-31] MEDS: fentaNYL 50mcg/hr PATCH.TD72 TD SCH (19:11)
[2017-10-31] MEDS: FENTANYL PATCH WASTE TD PRN (19:15)
[2017-10-31] MEDS ORDERED: PORTA CATH FLUSH 10 ML IVPUSH ONE (20:45)
== END 2017-10-31 20:49 | disposition home or self-care (01) | DRG 847 ==
LOC: J7W 11:21
PROVIDERS: ADMIT Internal Medicine Hematology & Oncology; ATTEND Internal Medicine Hematology & Oncology
DX: Z51.11 Encounter for antineoplastic chemotherapy (principal); C90.02 Multiple myeloma in relapse; E87.0 Hyperosmolality and hypernatremia; C79.89 Secondary malignant neoplasm of other specified sites; E87.6 Hypokalemia; D64.81 Anemia due to antineoplastic chemotherapy; D63.0 Anemia in neoplastic disease; T45.1X5A Adverse effect of antineoplastic and immunosuppressive drugs, initial encounter
CPT/HCPCS: 36415; 36430; 73070-TC-LT-FY; 80053; 83615; 83735; 84134; 84550; 85025; 86850; 86870; 86900; 86901; 86902; 86922; 96361; 96367; 96375; J1100; J7030; J9070; J9181; P9038; P9058

== ENCOUNTER 2017-12-17 07:37 | Day surgery (SDC) | payer BC ==
[2017-12-17] MEDS ORDERED: POTASSIUM CHLORIDE 20 MEQ, MAGNESIUM SULFATE 2 GM in DEXTROSE 5%-NORMAL SALINE 1,000 ML IVPB ONE (09:00)
[2017-12-17] MEDS ORDERED: ZOLEDRONIC ACID 4 MG in SODIUM CHLORIDE 100 ML IVPB ONE (11:00)
[2017-12-17 11:02] LABS: BASO % 0.1 % (0-2.0); EOS % 0.2 % (0-4.5); HEMATOCRIT 32.6 % (32.4-45.2); HEMOGLOBIN 10.9 GM/dL (10.7-15.3); LYMPH % 1.6 % (8-40); MCHC 33.6 g/dl (32.0-36.0); MEAN CELL VOLUME 107.2 fl (80-96); MEAN PLT VOLUME 10.5 fl (7.5-11.1); MONO % 12.1 % (3.8-10.2); PLATELET COUNT 38 K/MM3 (134-434); RBC 3.04 M/mm3 (3.60-5.2); RDW 21.9 % (11.6-15.6); WHITE BLOOD COUNT 5.8 K/mm3 (4.0-10.0)
[2017-12-17] MEDS ORDERED: MORPHINE SULFATE 2 MG/ML VIAL IVPUSH PRN (11:23)
[2017-12-17 11:32] LABS: ALBUMIN 2.9 g/dl (3.4-5.0); ANION GAP 10 (8-16); BLOOD UREA NITROGEN 23 mg/dL (7-18); CALCIUM 12.7 mg/dL (8.5-10.1); CHLORIDE 93 mmol/L (98-107); CO2 28 mmol/L (21-32); GLUCOSE,RANDOM 101 mg/dL (74-106); MAGNESIUM 1.1 mg/dL (1.8-2.4); POTASSIUM 3.6 mmol/L (3.5-5.1); SODIUM 131 mmol/L (136-145)
[2017-12-17 11:35] LABS: ALK PHOS 97 U/L (45-117); BILIRUBIN,TOTAL 0.7 mg/dL (0.2-1.0); CREATININE 0.7 mg/dL (0.55-1.02); SGOT/AST 51 U/L (15-37); SGPT/ALT 21 U/L (12-78); TOT PROT 6.5 g/dl (6.4-8.2)
[2017-12-17] MEDS ORDERED: NORMAL SALINE IVPB ONE (12:00)
[2017-12-17] MEDS ORDERED: DEXTROSE 5% IVPB ONE (12:00)
[2017-12-17] MEDS ORDERED: MAGNESIUM SULFATE IVPB ONE (12:00)
[2017-12-17] MEDS ORDERED: ONDANSETRON 4 MG/2 ML VIAL IVPB ONE (12:30)
[2017-12-17] MEDS: MORPHINE SULFATE 2 MG/ML VIAL IVPUSH PRN ×3 (12:48→15:57)
[2017-12-17 16:25] VITALS: TEMP 97.7
[2017-12-17] MEDS ORDERED: PORTA CATH FLUSH 10 ML IVPUSH ONE (16:27)
[2017-12-17 16:35] VITALS: BP 89/50; PULSE 78
[2017-12-17 20:07] LABS: ANISOCYTOSIS 2+; MACROCYTOSIS 2+; PLATELET ESTIMATE MOD DECREASED
== END 2017-12-17 16:15 | disposition home or self-care (01) ==
LOC: JONCCHEMO 07:37 → J7W 10:22 → JONCCHEMO 16:15
PROVIDERS: ATTEND Internal Medicine Hematology & Oncology
PROC: 3E04305 Introduction of Other Antineoplastic into Central Vein, Percutaneous Approach (ICD-10-PCS; principal; 2017-12-17)
PROC: 3E043GC Introduction of Other Therapeutic Substance into Central Vein, Percutaneous Approach (ICD-10-PCS; 2017-12-17)
PROC: 3E0437Z Introduction of Electrolytic and Water Balance Substance into Central Vein, Percutaneous Approach (ICD-10-PCS; 2017-12-17)
DX: Z51.11 Encounter for antineoplastic chemotherapy (principal); C90.00 Multiple myeloma not having achieved remission
CPT/HCPCS: 36415; 80053; 83735; 85025; 86708; 96361; 96375; 96413; 96417; J3489

== ENCOUNTER 2017-12-26 07:10 | Day surgery (SDC) | payer BC ==
[2017-12-26] MEDS ORDERED: morphine SULFATE IMMEDIATE RELEASE 30 MG TAB PO PRN (09:53)
[2017-12-26 10:18] LABS: BASO % 0.2 % (0-2.0); EOS % 0.4 % (0-4.5); HEMATOCRIT 23.7 % (32.4-45.2); HEMOGLOBIN 8.1 GM/dL (10.7-15.3); MCH 36.7 pg (25.7-33.7); MCHC 34.3 g/dl (32.0-36.0); MEAN PLT VOLUME 9.4 fl (7.5-11.1); MONO % 25.6 % (3.8-10.2); NEUT % 70.8 % (42.8-82.8); RBC 2.21 M/mm3 (3.60-5.2); RDW 20.3 % (11.6-15.6); WHITE BLOOD COUNT 4.3 K/mm3 (4.0-10.0)
[2017-12-26 10:20] LABS: PLATELET COUNT 35 K/MM3 (134-434)
[2017-12-26] MEDS ORDERED: ACETAMINOPHEN 325 MG TABLET (FP) PO ONE (10:45)
[2017-12-26 11:54] LABS: ALBUMIN 2.4 g/dl (3.4-5.0); ANION GAP 10 (8-16); BLOOD UREA NITROGEN 9 mg/dL (7-18); CALCIUM 8.9 mg/dL (8.5-10.1); CHLORIDE 97 mmol/L (98-107); CO2 26 mmol/L (21-32); CREATININE 0.7 mg/dL (0.55-1.02); GLUCOSE,RANDOM 96 mg/dL (74-106); MAGNESIUM 1.5 mg/dL (1.8-2.4); POTASSIUM 3.1 mmol/L (3.5-5.1); SGOT/AST 55 U/L (15-37); SGPT/ALT 14 U/L (12-78); SODIUM 133 mmol/L (136-145)
[2017-12-26 11:57] LABS: ALK PHOS 86 U/L (45-117); BILIRUBIN,TOTAL 0.7 mg/dL (0.2-1.0); TOT PROT 6.1 g/dl (6.4-8.2)
[2017-12-26 12:14] LABS: ANISOCYTOSIS 2+; MACROCYTOSIS 1+; OVALOCYTE 1+; PLATELET ESTIMATE DECREASED; TEAR DROP CELLS 1+
[2017-12-26] MEDS ORDERED: POTASSIUM CHLORIDE ORAL LIQUID 20 MEQ/15 ML PO ONE (13:45)
[2017-12-26] MEDS ORDERED: morphine SO4 SUSTAINED ACTING 30 MG TABLET.SA PO SCH (14:00)
[2017-12-26] MEDS: MAGNESIUM 1GM/D5W - 1 GM/100 ML IVPB IVPB SCH (15:49)
[2017-12-26 17:07] VITALS: BP 82/47; PULSE 81
[2017-12-26 17:08] VITALS: TEMP 99.6
[2017-12-26] MEDS ORDERED: PORTA CATH FLUSH 10 ML IVPUSH ONE (17:08)
[2017-12-26 17:52] LABS: HEMATOCRIT 24.4 % (32.4-45.2); HEMOGLOBIN 8.2 GM/dL (10.7-15.3); MCH 35.2 pg (25.7-33.7); MCHC 33.6 g/dl (32.0-36.0); MEAN PLT VOLUME 8.8 fl (7.5-11.1); PLATELET COUNT 61 K/MM3 (134-434); RBC 2.32 M/mm3 (3.60-5.2); WHITE BLOOD COUNT 3.4 K/mm3 (4.0-10.0)
== END 2017-12-26 17:10 | disposition home or self-care (01) ==
LOC: JONCBLOOD 07:10 → J7W 09:38 → JONCBLOOD 17:10
PROVIDERS: ATTEND Internal Medicine Hematology & Oncology
PROC: 30243N1 Transfusion of Nonautologous Red Blood Cells into Central Vein, Percutaneous Approach (ICD-10-PCS; principal; 2017-12-26)
PROC: 3E033GC Introduction of Other Therapeutic Substance into Peripheral Vein, Percutaneous Approach (ICD-10-PCS; 2017-12-26)
DX: C90.00 Multiple myeloma not having achieved remission (principal); D64.81 Anemia due to antineoplastic chemotherapy
CPT/HCPCS: 36415; 36430; 80053; 83735; 85025; 85027; 86850; 86900; 86901; 86922; 96365; 96417; P9034; P9038; P9058